=== PATIENT | female | born 1955 | race Caucasian/White ===

== ENCOUNTER → 2018-08-24 09:42 | Outpatient (CLI) | payer MEDICARE, MEDICAID ==
[~2018-08-24 09:42] MED LIST: BAYER CHEWABLE81 MG PO; BETAPACE 120 M120 MG PO; BUMEX2 MG PO; CARDIZEM CD360 MG PO; CELEXA20 MG PO; FERROUS SULFAT325 MG PO; HUMALOG 30100 UNITS/ SC; KLOR-CON M2020 MEQ PO; LIPITOR20 MG PO; METOPROLOL TART50 MG PO; NEURONTIN 300300 MG PO; PLAVIX75 MG PO; SYNTHROID75 MCG PO; TOUJEO SOL300 UNIT/1 SC; ZYLOPRIM300 MG PO
== END | disposition home or self-care (01) ==
LOC: D.RT 09:42
DX: R06.02 Shortness of breath (principal)

== ENCOUNTER → 2018-08-31 08:51 | Outpatient (CLI) | payer MEDICARE, MEDICAID ==
--- NOTE | 2018-09-08 10:39 | ST ---
PATIENT:BERNARD CHOU MEDICAL RECORD: [id number] SEX: F LOCATION:[facility] ORDER #: ADMISSION DATE: 08/31/18 AGE OF PATIENT: 63 REFERRING PHYSICIAN: INTERPRETING PHYSICIAN: BEAN GOULD MD DATE OF SERVICE: 08/31/2018 Nuclear Stress Test INDICATIONS: Angina and coronary artery disease, hypertension, hyperlipidemia. She was exercised on standard Lexiscan protocol with 31 mCi of sestamibi injected at peak stress, 10 mCi used previously for rest images. FINDINGS: Gated SPECT reveals a preserved ejection fraction of 51% with good wall motioning and thickening and brightening throughout all segments. SPECT IMAGING: Cardiolite was used as myocardial perfusion agent. There are reversible changes anteriorly as well as inferiorly. This includes basal, mid, apical anterior segments as well as apical inferior, mid inferior, basal inferior segments. The degree of reversibility is moderate. The amount of myocardium involved is large. OVERALL IMPRESSION: This is an abnormal nuclear stress test. Reversible ischemia anteriorly as well as inferiorly with a preserved ejection fraction suggestive of multivessel coronary artery disease. We will proceed with coronary angiography as followup study. TRANSINT:[id number] Voice Confirmation ID: [id number] DOCUMENT ID: [id number] BEAN GOULD MD at 1039 CC: ERIC HAMEED MD [id number] DICTATION DATE: 09/01/18 1235 FOOD BEVERAGE ATTENDANT: 09/02/18 0453 DEP CLI 08/31/18 [place] [id number] [place] [id number]
== END | disposition home or self-care (01) ==
LOC: D.HCCARDIO 08:51
PROVIDERS: ATTEND Internal Medicine Interventional Cardiology
DX: I25.10 Atherosclerotic heart disease of native coronary artery without angina pectoris (principal)

== ENCOUNTER 2018-10-26 13:41 | Inpatient (IN) | payer MEDICARE, MEDICAID ==
[~2018-10-26] VITALS: Ht 165.1 cm; Wt 128.6 kg
[2018-10-26 14:14] LABS: BASOPHILS 0.3 % (0-2); EOSINOPHILS 0.7 % (0-7); HEMATOCRIT 28.2 % (36.0-48.0); HEMOGLOBIN 9.1 g/dL (12-16); IMMATURE GRANULOCYTES 0.3 % (0-5); LYMPHOCYTES 21.1 % (15-50); MCH 28.4 pg (26.0-34.0); MCHC 32.3 g/dL (31.0-37.0); MCV 88.1 fL (80.0-100.0); MEAN PLATELET VOLUME 10.4 fL (7.4-10.4); MONOCYTES 6.5 % (2-11); NEUTROPHILS 71.1 % (40-80); PLATELET COUNT 252 10x3/uL (130-400); RDW 18.4 % (11.5-14.5); WBC 10.6 10x3/uL (4.8-10.8)
[2018-10-26 14:27] LABS: ALBUMIN 3.1 g/dL (3.4-5.0); ALKALINE PHOSPHATASE 153 U/L (46-116); ALT (SGPT) 14 U/L (10-68); BILIRUBIN - TOTAL 0.94 mg/dL (0.2-1.3); CALC OSMOLALITY 285 mosm/kg (275-300); CALCIUM 8.9 mg/dL (8.5-10.1); CARBON DIOXIDE 27.4 mmol/L (21.0-32.0); CHLORIDE - SERUM 97 mmol/L (98-107); CREATININE - SERUM 1.4 mg/dL (0.6-1.3); POTASSIUM - SERUM 4.7 mmol/L (3.5-5.1); PROTEIN - SERUM 7.5 g/dL (6.4-8.2); SODIUM 135 mmol/L (136-145); UREA NITROGEN 19 mg/dL (7-18); eGFR NON AFRICAN AMERICAN 40 mL/min (90-120)
[2018-10-26 14:42] LABS: GLUCOSE 356 mg/dL (74-106)
[2018-10-26 14:50] LABS: CKMB 0.2 U/L (0.0-3.6); CREATINE KINASE 32 UL (21-215); PRO BNP 953 pg/mL (0-125)
[2018-10-26 14:55] LABS: TROPONIN-I < 0.017 ng/mL (0.000-0.060)
[2018-10-26 16:00] VITALS: BP 114/62
[2018-10-26 17:51] VITALS: BP 111/51
--- NOTE | 2018-10-26 19:16 | MORECARE ---
CASE MANAGEMENT DISCHARGE SUMMARY PATIENT: BERNARD CHOU UNIT: [id number] ADM DATE: 10/26/18 AGE: 63 : 55 SEX: F ROOM/BED: D.2225 AUTHOR: NISH WILHELM PHYSICIAN: REFERRING PHYSICIAN: ERIC HAMEED MD DATE OF SERVICE: 10/26/18 Discharge Plan Patient Name: BERNARD CHOU Facility: [facility]:[place] : 1955 Planned Disposition: Home Anticipated Discharge Date: 10/21/18 Discharge Date: Expected LOS: -5 Initial Reviewer: [email or web address] Initial Review Date: 10/26/2018 Generated: 10/26/18 8:15 pm Patient Name: BERNARD CHOU Page 52713 at 1916 All edits/amendments must be made on the electronic document DICTATION DATE: 10/26/181914 ANTHROPOLOGY AND ARCHEOLOGY INSTRUCTOR: MAIRA 10/26/181914 RPT#: [id number] DC DATE: STATUS: ADM IN [facility] [address] [place] [address] END OF REPORT
--- NOTE | 2018-10-26 19:24 | MORECARE ---
CASE MANAGEMENT DISCHARGE SUMMARY PATIENT: BERNARD CHOU UNIT: [id number] ADM DATE: 10/26/18 AGE: 63 : 55 SEX: F ROOM/BED: D.2225 AUTHOR: NISH WILHELM PHYSICIAN: REFERRING PHYSICIAN: ERIC HAMEED MD DATE OF SERVICE: 10/26/18 Discharge Plan Patient Name: BERNARD CHOU Facility: [facility]:[place] : 1955 Planned Disposition: Home Anticipated Discharge Date: 10/21/18 Discharge Date: Expected LOS: -5 Initial Reviewer: [email or web address] Initial Review Date: 10/26/2018 Generated: 10/26/18 8:23 pm DCPIA - Discharge Planning Initial Assessment Updated by [email or web address]: Sharon Stout on 10/26/18 7:17 pm * Is the patient Alert and Oriented? Yes * How many steps to enter\exit or inside your home? * PCP Dr. Hameed * Pharmacy [facility] [address] [facility] * Preadmission Environment Home with Family * ADLs Independent * Equipment Cane Rolling Walker * Other Equipment Should have a bipap but [facility] has not delivered it. Has been waiting since August... * List name and contact numbers for known caregivers / representatives who currently or will assist patient after discharge: Kodi Chou - brother - [phone] * Verbal permission to speak to the caregivers and representatives has been obtained from the patient. Yes * Community resources currently utilized None * Additional services required to return to the preadmission environment? Yes * Can the patient safely return to the preadmission environment? Yes * Has this patient been hospitalized within the prior 30 days at any hospital? No Last DP export: 10/26/18 6:16 p Patient Name: BERNARD CHOU Page 10342 at 1924 All edits/amendments must be made on the electronic document DICTATION DATE: 10/26/181922 ROLLING MACHINE OPERATOR AUTOMATIC: MAIRA 10/26/181922 RPT#: [id number] DC DATE: STATUS: ADM IN [facility] [address] [place] [address] END OF REPORT
--- NOTE | 2018-10-26 19:31 | MORECARE ---
CASE MANAGEMENT DISCHARGE SUMMARY PATIENT: BERNARD CHOU UNIT: [id number] ADM DATE: 10/26/18 AGE: 63 : 55 SEX: F ROOM/BED: D.2225 AUTHOR: NISH WILHELM PHYSICIAN: REFERRING PHYSICIAN: ERIC HAMEED MD DATE OF SERVICE: 10/26/18 Discharge Plan Patient Name: BERNARD CHOU Facility: [facility]:[place] : 1955 Planned Disposition: Home Anticipated Discharge Date: 10/21/18 Discharge Date: Expected LOS: -5 Initial Reviewer: [email or web address] Initial Review Date: 10/26/2018 Generated: 10/26/18 8:30 pm DCP- Discharge Planning Updated by [email or web address]: Sharon Stout on 10/26/18 6:[address] Patient Name: BERNARD CHOU Admission Status: ER Accout number: [id number] Admission Date: 10-26-2018 : 1955 Admission Diagnosis: Attending: ERIC HAMEED Current LOS: 1 Anticipated DC Date: 10-21-2018 Planned Disposition: Home Primary Insurance: [facility] MEDICARE SOLUTIONS Discharge Planning Comments: CM met with patient and her ex to complete initial dc planning assessment. CM educated patient on the CM role and verbal consent given by patient to complete assessment. CM verified patient's address, phone number, and emergency contact phone numbers. Patient lives at her brothers home who is a truck sales representative. The patient reports she is independent in her care at home. She reports she is to have a bipap through [facility] but they have not delivered it at this time. She reports she has been waiting since August for this bipap. At discharge patient plans to return to her brothers home and feels this is a safe discharge. CM discussed availability of home health, rehab services, and medical equipment. Patient denied known discharge needs at this time. Patient reports her ex brother will transport her home at time of discharge. CM will continue to follow and will assist as needed with dc plans/needs. Affiliate Marketing Manager: Sharon Stout RN, [facility] DCPIA - Discharge Planning Initial Assessment Updated by [email or web address]: Sharon Stout on 10/26/18 7:17 pm * Is the patient Alert and Oriented? Yes * How many steps to enter\exit or inside your home? * PCP Dr. Hameed * [facility]acy [facility] [address] * Preadmission Environment Home with Family * ADLs Independent * Equipment Cane Rolling Walker * Other Equipment Should have a bipap but [facility] has not delivered it. Has been waiting since August... * List name and contact numbers for known caregivers / representatives who currently or will assist patient after discharge: Kodi Chou - brother - [phone] * Verbal permission to speak to the caregivers and representatives has been obtained from the patient. Yes * Community resources currently utilized None * Additional services required to return to the preadmission environment? Yes * Can the patient safely return to the preadmission environment? Yes * Has this patient been hospitalized within the prior 30 days at any hospital? No Last DP export: 10/26/18 6:23 p Patient Name: BERNARD CHOU Page 85796 at 1931 All edits/amendments must be made on the electronic document DICTATION DATE: 10/26/181929 PYROTECHNIST: MAIRA 10/26/181929 RPT#: [id number] DC DATE: STATUS: ADM IN [facility] [address] [place] [address] END OF REPORT
--- NOTE | 2018-10-26 21:15 | NUR ---
PT SITTING UP IN BED WITHOUT DISTRESS. ALERT AND ORIENTED, DENIES NEEDS. CL IN REACH, WILL CTM
[2018-10-26 21:18] LABS: % SATURATION 18 % (15-55); IRON 46 ug/dl (35-150); TOTAL IRON BIND CAPACITY 245 ug/dl (260-445); UNSAT IRON BIND CAPACITY 199 ug/dl (150-375)
[2018-10-27] VITALS: BP 126/65
[2018-10-27 02:00] VITALS: Ht 165.1 cm; Wt 128.6 kg
--- NOTE | 2018-10-27 02:07 | NUR ---
DR. GOLD NOTIFIED AND REVIEWED PT'S BEHAVIOR AND ASSESSMENT RESULTS. PT IS LOW RISK PER DR. GOLD. DR. GOLD STATED TO GIVE RESOURCES TO PT AT TIME OF DISCHARGE. NO FURTHER ORDERS AT THIS TIME. RESOURCES REVIEWED WITH PT AND SHE VERBALIZED UNDERSTANDING.
[2018-10-27 04:00] VITALS: BP 125/69
[2018-10-27 04:41] LABS: BASOPHILS 0.2 % (0-2); EOSINOPHILS 0 % (0-7); HEMATOCRIT 26.6 % (36.0-48.0); HEMOGLOBIN 8.4 g/dL (12-16); IMMATURE GRANULOCYTES 0.3 % (0-5); LYMPHOCYTES 10.1 % (15-50); MCH 27.9 pg (26.0-34.0); MCHC 31.6 g/dL (31.0-37.0); MCV 88.4 fL (80.0-100.0); MEAN PLATELET VOLUME 10.2 fL (7.4-10.4); MONOCYTES 0.8 % (2-11); NEUTROPHILS 88.6 % (40-80); RBC 3.01 10x6/uL (4.00-5.40); RDW 18.3 % (11.5-14.5)
[2018-10-27 04:56] LABS: PLATELET COUNT 201 10x3/uL (130-400); WBC 6.5 10x3/uL (4.8-10.8)
[2018-10-27 05:14] LABS: ALBUMIN 2.9 g/dL (3.4-5.0); ANION GAP 14.5 mmol/L (8-16); BILIRUBIN - TOTAL 0.74 mg/dL (0.2-1.3); CALCIUM 8.9 mg/dL (8.5-10.1); CARBON DIOXIDE 29.2 mmol/L (21.0-32.0); CREATININE - SERUM 1.4 mg/dL (0.6-1.3); POTASSIUM - SERUM 4.7 mmol/L (3.5-5.1); PROTEIN - SERUM 7.1 g/dL (6.4-8.2)
--- NOTE | 2018-10-27 08:00 | NUR ---
PATIENT IN BED WITH IV INTACT. NO COMPLAINTS OR SIGNS OF DISTRESS. CALL LIGHT WITHIN REACH.
[2018-10-27 09:12] VITALS: BP 119/60
--- NOTE | 2018-10-27 11:19 | CN ---
PATIENT NAME:BERNARD CHOU MEDICAL RECORD: [id number] : 55 LOCATION:D.MS [id number] ADMIT DATE: 10/26/18 ACCOUNT: [id number] CONSULTING PHYSICIAN: BEAN GOULD MD REFERRING PHYSICIAN: ERIC HAMEED MD DATE OF CONSULTATION: 10/26/2018 DIAGNOSES: 1. Shortness of breath - dyspnea on exertion. 2. Coronary artery disease. 3. Previous percutaneous transluminal coronary angioplasty stent. 4. Anemia. 5. Hyperglycemia. 6. Insulin-dependent diabetes. 7. Paroxysmal atrial fibrillation. 8. Hypertension. 9. Hyperlipidemia. HISTORY OF PRESENT ILLNESS: Mrs. Chou presents with shortness of breath, dyspnea on exertion. No chest pain. No chest discomfort compatible with angina. She recently underwent PTCA stent of an LAD. This was the only significant disease she had. She has felt much better and that she has not had any chest pain or chest discomfort since that procedure. She only has shortness of breath and dyspnea on exertion. She, however, has worsening anemia with hemoglobin of 9.1 and she has worsening hyperglycemia with a blood sugar greater than 400. Her EKG is with no changes. Her troponin is normal. PHYSICAL EXAMINATION: GENERAL APPEARANCE: Well-nourished, well-developed, appears stated age. Level of distress, comfortable. PSYCHIATRIC: Mental status, alert, normal affect. Orientation, oriented to time, place and person. EYES: Lids and conjunctiva, noninjected. No discharge, no pallor. ENT: Lips, teeth, gums, normal dentition. Oropharynx, no cyanosis, no pallor. NECK: Carotid arteries, bilateral normal upstroke, no bruits, no thrills. JUGULAR VEINS: No jugular venous pressure or distention. CERVICAL LYMPH NODES: Nontender, nonenlarged. THYROID: Not enlarged. Nontender. No nodules. LUNGS: Respiratory effort, unlabored. CHEST: Normal curvature. No thoracic deformity. No chest wall tenderness. Percussion, resonant. Auscultation, clear. No wheezes, no rales, no rhonchi. CARDIOVASCULAR: Precordial exam, nondisplaced. No heaves or pericardial thrills. Rate and rhythm, regular. Heart sounds, normal S1, normal S2. No S3, no gallop, no rub. Systolic murmur, not heard. Diastolic murmur, not heard. EXTREMITIES: No cyanosis, no edema. Peripheral pulses, full and equal in all extremities, except as noted. No bruits appreciated. ABDOMEN: Soft, nondistended. Normal aorta. No bruit. Nontender. No masses. Liver, nontender, no hepatomegaly. Spleen, nontender, no splenomegaly. MUSCULOSKELETAL: No joint tenderness. No joint swelling. No erythema. NEUROLOGICAL: Normal gait, normal strength, normal tone. SKIN: Warm and dry. OVERALL IMPRESSION: Shortness of breath, dyspnea on exertion. She has multiple reasons to have this. I think the most pressing issues she has now are the anemia and the hyperglycemia. From a cardiac standpoint, she had a normal CONSULT REPORT [id number] BERNARD CHOU ejection fraction, no other blockages and her heart remains in sinus rhythm on her sotalol. We will get an echocardiogram, but no other cardiac workup or treatment is necessary, I think this is metabolic in nature. TRANSINT:[id number] Voice Confirmation ID: [id number] DOCUMENT ID: [id number] BEAN GOULD MD at 1119 CC: [id number] DICTATION DATE: 10/26/18 1538 RESEARCH AND DEVELOPMENT ENGINEER: 10/26/18 1656 ADM IN [place] [id number] [place] [address]
[2018-10-27 12:09] VITALS: BP 125/60
[2018-10-27 16:24] VITALS: BP 127/75
--- NOTE | 2018-10-27 16:30 | NUR ---
NOTIFIED DR. HAMEED OF PATIENTS BS BEING HIGH ALL DAY AND NOW HIGHER. NEW ORDERS RECIEVED TO CHANGE SOLUMEDROL TO 60 MG. PATIENT IN BED WITH IV INTACT. CALL LIGHT WITHIN REACH.
--- NOTE | 2018-10-27 18:45 | NUR ---
PATIENT IN BED WITH IV INTACT. NO COMPLAINTS OR SIGNS OF DISTRESS. CALL LIGHT WITHIN REACH.
--- NOTE | 2018-10-27 20:11 | NUR ---
REC'D. IN BED TALKING ON PHONE DENIES ANY DISCOMFORT OR COMLAINTS AT PRESENT TIME.WILL CONTINUE TO MONITOR FOR ANY CHGES AND FOLLOW CURRENT PLAN OF CARE.
[2018-10-27 20:56] VITALS: BP 117/46
[2018-10-28 00:47] VITALS: BP 121/49
--- NOTE | 2018-10-28 01:57 | NUR ---
I have reviewed this patient and I concur with the Shift Assessment completed by the Licensed Practical Nurse today this shift.
--- NOTE | 2018-10-28 01:59 | NUR ---
I have reviewed this patient and I concur with the Shift Assessment completed by the Licensed Practical Nurse today this shift.
[2018-10-28 05:23] VITALS: BP 114/62
[2018-10-28 06:37] LABS: BASOPHILS 0 % (0-2); EOSINOPHILS 0 % (0-7); HEMATOCRIT 25.5 % (36.0-48.0); HEMOGLOBIN 8.3 g/dL (12-16); IMMATURE GRANULOCYTES 0.2 % (0-5); LYMPHOCYTES 6.2 % (15-50); MCH 28.2 pg (26.0-34.0); MCHC 32.5 g/dL (31.0-37.0); MCV 86.7 fL (80.0-100.0); MEAN PLATELET VOLUME 10.5 fL (7.4-10.4); MONOCYTES 2.7 % (2-11); NEUTROPHILS 90.9 % (40-80); PLATELET COUNT 236 10x3/uL (130-400); RBC 2.94 10x6/uL (4.00-5.40); RDW 18.2 % (11.5-14.5)
[2018-10-28 06:54] LABS: WBC 11.7 10x3/uL (4.8-10.8)
[2018-10-28 07:02] LABS: ANION GAP 11.2 mmol/L (8-16); CALCIUM 9.3 mg/dL (8.5-10.1); CARBON DIOXIDE 31.7 mmol/L (21.0-32.0); CREATININE - SERUM 1.3 mg/dL (0.6-1.3); POTASSIUM - SERUM 4.9 mmol/L (3.5-5.1)
--- NOTE | 2018-10-28 08:02 | HP ---
PATIENT: BERNARD CHOU MEDICAL RECORD: [id number] ACCOUNT: [id number] LOCATION:D.MS Rapp2225 : 55 ADMISSION DATE: 10/26/18 PCP: ERIC HAMEED MD HISTORY AND PHYSICAL EXAMINATION DATE OF ADMISSION: 10/26/2018 CHIEF COMPLAINT: Shortness of breath. HISTORY OF PRESENT ILLNESS: A 63-year-old female who states she has had shortness of breath for weeks. She wonders if it is not a reaction to gabapentin. She has a history of peripheral neuropathy and Dr. Waldron increased her gabapentin from 100 three times a day to 300 mg twice a day. She denies fever, chills, nausea, vomiting. She states in the ER, her O2 sat was 88% on room air. The patient states she just saw Dr. Salinas in his office a week or so ago. He told her she does not have COPD that she thought she had. She states that she was told her lungs were "too small for her body." She has just recently had a coronary stent as well. PAST MEDICAL HISTORY: 1. Diabetes, followed by the aviation maintenance technician here in town: 2. Obesity. 3. Sleep apnea. 4. Hypertension. 5. Chronic anemia "everybody in my family is anemic". 6. Hyperlipidemia 7. Depression 8. Hypothyroidism 9. Coronary artery disease 10. Cataracts. PAST SURGICAL HISTORY: Bilateral cataract surgery. She had a stent to her LAD by Dr. Chanel "recently". ALLERGIES: REPORTED TO DEXAMETHASONE AND ADHESIVE TAPE. HOME MEDICATIONS: Include gabapentin 300 mg twice a day, Lipitor 10 mg once a day, Plavix 75 mg once a day, Bumex 2 mg 1-1/2 pills once a day, Humalog via sliding scale, Toujeo 26 units twice a day, metoprolol 50 mg twice a day, ProAir HFA 2 puffs q.6 hours p.r.n., diltiazem ER 360 once a day, sotalol 120 mg twice a day, levothyroxine 75 mcg once a day, duloxetine 60 mg once a day, allopurinol 300 mg 1/2 once a day, potassium 20 mEq once a day, aspirin once a day, and iron twice a day. HABITS: She has never smoked. No alcohol or drugs. SOCIAL HISTORY: She is . She is on disability. FAMILY HISTORY: Father of an aneurysm, he had colon cancer, he had coronary artery disease. Mother is alive with diabetes and hypertension. REVIEW OF SYSTEMS: GENERAL: No major weight changes. HEENT: No particular sinus or allergy problems. RESPIRATORY: She just saw Dr. Salinas in his office. I am not sure what HISTORY AND PHYSICAL [id number] BERNARD CHOU diagnosis she actually has, but she has been told now that she does not have COPD, she thought she had. CARDIAC: She has coronary artery disease followed by Dr. Chanel, and has a stent to her LAD. GASTROINTESTINAL: She has heartburn at times. GENITOURINARY: No significant problems there. MUSCULOSKELETAL: No significant joint aches and pains. NEUROLOGIC: No seizures or migraines. PSYCHIATRIC: She has depression. PHYSICAL EXAMINATION: VITAL SIGNS: Temperature 98.0, pulse 69, respirations 18, blood pressure 111/51, O2 sat currently 98% on 2 liters. GENERAL: She is awake and alert. She is in no acute distress. She is obese. HEENT: Grossly within normal limits. NECK: Supple. HEART: Regular rate and rhythm. LUNGS: Clear. No wheezes or rales. ABDOMEN: Obese, soft, nontender. EXTREMITIES: With 1+ edema. LABORATORY DATA: CBC with a white count of 10,600, hemoglobin 9.1, hematocrit 28.2. Basic metabolic panel is all okay except her glucose is 356. D-dimer elevated at 1.54. Liver functions are all normal. ProBNP 953. Troponin less than 0.017. DIAGNOSTIC DATA: Chest x-ray showed small right pleural effusion with adjacent atelectasis or infiltrate. CT angiogram of the chest, PE protocol showed mild bibasilar atelectasis or infiltrate, no PE. ASSESSMENT: 1. Shortness of breath. 2. Dyspnea on exertion. PLAN: Cardiology has been consulted. Dr. Chanel says he does not feel this is cardiac in nature. We will consult pulmonology. She is started on antibiotics for possible pneumonia based on CT and the chest x-ray. We will further evaluate her anemia. Other tests or procedures as warranted. Monitor her diabetes. TRANSINT:[id number] Voice Confirmation ID: [id number] DOCUMENT ID: [id number] ERIC HAMEED MD at 0802 CC: [id number] DICTATION DATE: 10/27/1803 NAILING MACHINE FEEDER: 10/27/18 0949 ADM IN [facility] [address] [place] [id number]
[2018-10-28 08:55] VITALS: BP 129/58
--- NOTE | 2018-10-28 09:00 | NUR ---
EXPLAINED TO PATIENT NPO AT THIS TIME FOR EGD. VERBALIZED UNDERSTANDING.
--- NOTE | 2018-10-28 11:32 | MORECARE ---
CASE MANAGEMENT DISCHARGE SUMMARY PATIENT: BERNARD CHOU UNIT: [id number] ADM DATE: 10/26/18 AGE: 63 : 55 SEX: F ROOM/BED: D.2225 AUTHOR: NISH WILHELM PHYSICIAN: REFERRING PHYSICIAN: ERIC HAMEED MD DATE OF SERVICE: 10/28/18 Discharge Plan Patient Name: BERNARD CHOU Facility: [facility]:[place] : 1955 Planned Disposition: Home Anticipated Discharge Date: 10/21/18 Discharge Date: Expected LOS: -5 Initial Reviewer: [email or web address] Initial Review Date: 10/26/2018 Generated: 10/28/18 12:31 pm DCP- Discharge Planning Updated by [email or web address]: Sharon Stout on 10/26/18 6:[address] Patient Name: BERNARD CHOU Admission Status: ER Accout number: [id number] Admission Date: 10-26-2018 : 1955 Admission Diagnosis: Attending: ERIC HAMEED Current LOS: 1 Anticipated DC Date: 10-21-2018 Planned Disposition: Home Primary Insurance: [facility] MEDICARE SOLUTIONS Discharge Planning Comments: CM met with patient and her ex to complete initial dc planning assessment. CM educated patient on the CM role and verbal consent given by patient to complete assessment. CM verified patient's address, phone number, and emergency contact phone numbers. Patient lives at her brothers home who is a supervisor ordnance truck installation. The patient reports she is independent in her care at home. She reports she is to have a bipap through [facility] but they have not delivered it at this time. She reports she has been waiting since August for this bipap. At discharge patient plans to return to her brothers home and feels this is a safe discharge. CM discussed availability of home health, rehab services, and medical equipment. Patient denied known discharge needs at this time. Patient reports her ex brother will transport her home at time of discharge. CM will continue to follow and will assist as needed with dc plans/needs. Automobile Mechanic Assistant: Sharon Stout RN, [facility] DCPIA - Discharge Planning Initial Assessment Updated by [email or web address]: Sharon Stout on 10/26/18 7:17 pm * Is the patient Alert and Oriented? Yes * How many steps to enter\exit or inside your home? * PCP Dr. Hameed * Pharmacy [facility] [address] * Preadmission Environment Home with Family * ADLs Independent * Equipment Cane Rolling Walker * Other Equipment Should have a bipap but [facility] has not delivered it. Has been waiting since August... * List name and contact numbers for known caregivers / representatives who currently or will assist patient after discharge: Kodi Chou - brother - [phone] * Verbal permission to speak to the caregivers and representatives has been obtained from the patient. Yes * Community resources currently utilized None * Additional services required to return to the preadmission environment? Yes * Can the patient safely return to the preadmission environment? Yes * Has this patient been hospitalized within the prior 30 days at any hospital? No External Providers External Provider: [facility] Next Contact Date: Service Request Date: Service Type: Resolution: Reviewer: Comments: Coverage Notice Reviewer: [email or web address] Joe Estrella Notice Issued Date-Time: 10/28/2018 11:22 Notice Type: Patient Choice Letter Notice Delivered To: Patient Relationship to Patient: Self Clerk Telegraph Service Name: Delivery Method: HAND - Hand Delivered Yael Days: Prior Verbal Notification: Recipient Understood Notice: Recipient Signature: Yes Med Rec Note Co-signed by Attending: Coverage Notice Comment: LESLY for [facility] Last DP export: 10/26/18 6:30 p Patient Name: BERNARD CHOU Page 36466 at 1132 All edits/amendments must be made on the electronic document DICTATION DATE: 10/28/18 1131 SUGAR CANE PLANTING EQUIPMENT OPERATOR: MAIRA 10/28/18 1131 RPT#: [id number] DC DATE: STATUS: ADM IN [facility] [address] [place] [address] END OF REPORT
--- NOTE | 2018-10-28 12:02 | MORECARE ---
CASE MANAGEMENT DISCHARGE SUMMARY PATIENT: BERNARD CHOU UNIT: [id number] ADM DATE: 10/26/18 AGE: 63 : 55 SEX: F ROOM/BED: D.2225 AUTHOR: NISH WILHELM PHYSICIAN: REFERRING PHYSICIAN: ERIC HAMEED MD DATE OF SERVICE: 10/28/18 Discharge Plan Patient Name: BERNARD CHOU Facility: [facility]:[place] : 1955 Planned Disposition: Home Anticipated Discharge Date: 10/21/18 Discharge Date: Expected LOS: -5 Initial Reviewer: [email or web address] Initial Review Date: 10/26/2018 Generated: 10/28/18 1:02 pm Comments DCP- Discharge Planning Updated by [email or web address]: Diana Estrella on 10/28/18 10:[address] Salinas states [facility] has been working on getting patient a BIPAP and would like me to call them and have them deliver it here. I also did a walk test and she qualifies for home oxygen. I called [facility] and spoke with Mynor. Brigette states that they have no record of this patient. I called Dr. Salinas's office and spoke with Vianney (his nurse). She states they have sent records and order to [facility] for BIPAP. I asked Vianney to fax the sleep study and the chart notes to me and [facility] to get this taken care of. CM will continue to follow and assist with discharge planning/needs. DCP- Discharge Planning Updated by [email or web address]: Sharon Stout on 10/26/18 6:[address] Patient Name: BERNARD CHOU Admission Status: ER Accout number: [id number] Admission Date: 10-26-2018 : 1955 Admission Diagnosis: Attending: ERIC HAMEED Current LOS: 1 Anticipated DC Date: 10-21-2018 Planned Disposition: Home Primary Insurance: [facility] MEDICARE SOLUTIONS Discharge Planning Comments: CM met with patient and her ex to complete initial dc planning assessment. CM educated patient on the CM role and verbal consent given by patient to complete assessment. CM verified patient's address, phone number, and emergency contact phone numbers. Patient lives at her brothers home who is a boom truck driver. The patient reports she is independent in her care at home. She reports she is to have a bipap through [facility] but they have not delivered it at this time. She reports she has been waiting since August for this bipap. At discharge patient plans to return to her brothers home and feels this is a safe discharge. CM discussed availability of home health, rehab services, and medical equipment. Patient denied known discharge needs at this time. Patient reports her ex brother will transport her home at time of discharge. CM will continue to follow and will assist as needed with dc plans/needs. Family Consumer Science Fcs Teacher: Sharon Stout RN, [facility] DCPIA - Discharge Planning Initial Assessment Updated by [email or web address]: Sharon Stout on 10/26/18 7:17 pm * Is the patient Alert and Oriented? Yes * How many steps to enter\exit or inside your home? * PCP Dr. Hameed * Pharmacy [facility] [address] * Preadmission Environment Home with Family * ADLs Independent * Equipment Cane Rolling Walker * Other Equipment Should have a bipap but [facility] has not delivered it. Has been waiting since August... * List name and contact numbers for known caregivers / representatives who currently or will assist patient after discharge: Kodi Chou - brother - [phone] * Verbal permission to speak to the caregivers and representatives has been obtained from the patient. Yes * Community resources currently utilized None * Additional services required to return to the preadmission environment? Yes * Can the patient safely return to the preadmission environment? Yes * Has this patient been hospitalized within the prior 30 days at any hospital? No Coverage Notice Reviewer: [email or web address] Joe Estrella Notice Issued Date-Time: 10/28/2018 11:22 Notice Type: Patient Choice Letter Notice Delivered To: Patient Relationship to Patient: Self Lna Name: Delivery Method: HAND - Hand Delivered Yael Days: Prior Verbal Notification: Recipient Understood Notice: Recipient Signature: Yes Med Rec Note Co-signed by Attending: Coverage Notice Comment: LESLY for [facility] Last DP export: 10/28/18 10:31 a Patient Name: BERNARD CHOU Page [phone] at 1202 All edits/amendments must be made on the electronic document DICTATION DATE: 10/28/181201 GOLF SALES ASSOCIATE: MAIRA 10/28/181201 RPT#: [id number] DC DATE: STATUS: ADM IN [facility] [address] [place] [address] END OF REPORT
[2018-10-28 12:24] VITALS: BP 142/58
--- NOTE | 2018-10-28 14:17 | MORECARE ---
CASE MANAGEMENT DISCHARGE SUMMARY PATIENT: BERNARD CHOU UNIT: [id number] ADM DATE: 10/26/18 AGE: 63 : 55 SEX: F ROOM/BED: D.2225 AUTHOR: NISH WILHELM PHYSICIAN: REFERRING PHYSICIAN: ERIC HAMEED MD DATE OF SERVICE: 10/28/18 Discharge Plan Patient Name: BERNARD CHOU Facility: [facility]:[place] : 1955 Planned Disposition: Home Anticipated Discharge Date: 10/21/18 Discharge Date: Expected LOS: -5 Initial Reviewer: [email or web address] Initial Review Date: 10/26/2018 Generated: 10/28/18 3:17 pm Comments DCP- Discharge Planning Updated by [email or web address]: Diana Estrella on 10/28/18 1:[address] Sleep study and notes faxed to [facility]. Dakotah called and states he will bring patient her BIPAP today to the hospital. CM will continue to follow and assist with discharge planning/needs. DCP- Discharge Planning Updated by [email or web address]: Diana Estrella on 10/28/18 10:[address] Salinas states [facility] has been working on getting patient a BIPAP and would like me to call them and have them deliver it here. I also did a walk test and she qualifies for home oxygen. I called [facility] and spoke with Dakotah and Brigette. Brigette states that they have no record of this patient. I called Dr. Salinas's office and spoke with Vianney (his nurse). She states they have sent records and order to [facility] for BIPAP. I asked Vianney to fax the sleep study and the chart notes to me and [facility] to get this taken care of. CM will continue to follow and assist with discharge planning/needs. DCP- Discharge Planning Updated by [email or web address]: Sharon Stout on 10/26/18 6:[address] Patient Name: BERNARD CHOU Admission Status: ER Accout number: [id number] Admission Date: 10-26-2018 : 1955 Admission Diagnosis: Attending: ERIC HAMEED Current LOS: 1 Anticipated DC Date: 10-21-2018 Planned Disposition: Home Primary Insurance: [facility] MEDICARE SOLUTIONS Discharge Planning Comments: CM met with patient and her ex to complete initial dc planning assessment. CM educated patient on the CM role and verbal consent given by patient to complete assessment. CM verified patient's address, phone number, and emergency contact phone numbers. Patient lives at her brothers home who is a truck shop mechanic. The patient reports she is independent in her care at home. She reports she is to have a bipap through [facility] but they have not delivered it at this time. She reports she has been waiting since August for this bipap. At discharge patient plans to return to her brothers home and feels this is a safe discharge. CM discussed availability of home health, rehab services, and medical equipment. Patient denied known discharge needs at this time. Patient reports her ex brother will transport her home at time of discharge. CM will continue to follow and will assist as needed with dc plans/needs. Record Label Internship: Sharon Stout RN, [facility] DCPIA - Discharge Planning Initial Assessment Updated by [id number]: Sharon Stout on 10/26/18 7:17 pm * Is the patient Alert and Oriented? Yes * How many steps to enter\exit or inside your home? * PCP Dr. Hameed * Pharmacy [facility] [address] * Preadmission Environment Home with Family * ADLs Independent * Equipment Cane Rolling Walker * Other Equipment Should have a bipap but [facility] has not delivered it. Has been waiting since August... * List name and contact numbers for known caregivers / representatives who currently or will assist patient after discharge: Kodi Chou - [phone] * Verbal permission to speak to the caregivers and representatives has been obtained from the patient. Yes * Community resources currently utilized None * Additional services required to return to the preadmission environment? Yes * Can the patient safely return to the preadmission environment? Yes * Has this patient been hospitalized within the prior 30 days at any hospital? No Coverage Notice Reviewer: [email or web address] - Diana Estrella Notice Issued Date-Time: 10/28/2018 11:22 Notice Type: Patient Choice Letter Notice Delivered To: Patient Relationship to Patient: Self Television News Reporter Name: Delivery Method: HAND - Hand Delivered Yael Days: Prior Verbal Notification: Recipient Understood Notice: Recipient Signature: Yes Med Rec Note Co-signed by Attending: Coverage Notice Comment: LESLY for [facility] Last DP export: 10/28/18 11:02 a Patient Name: BERNARD CHOU Page [phone] at 1417 All edits/amendments must be made on the electronic document DICTATION DATE: 10/28/181416 SURVEILLANCE SENSOR OPERATOR: MAIRA 10/28/181416 RPT#: [id number] DC DATE: STATUS: ADM IN [facility] [address] [place] [address] END OF REPORT
--- NOTE | 2018-10-28 16:47 | NUR ---
PATIENT BACK TO ROOM FROM GI LAB. IV INTACT. VS STABLE. CALL LIGHT WITHIN REACH.
--- NOTE | 2018-10-28 18:45 | NUR ---
PATIENT IN BED WITH IV INTACT. NO COMPLAINTS OR SIGNS OF DISTRESS. CALL LIGHTW ITHINR EACH.
[2018-10-28 20:00] VITALS: BP 124/61
[2018-10-29] VITALS: BP 132/61
[2018-10-29 03:08] LABS: FOLATE (FOLIC ACID) - SERUM 12.1 ng/mL (>3.0)
[2018-10-29 04:00] VITALS: BP 123/63
[2018-10-29 06:08] LABS: BASOPHILS 0 % (0-2); EOSINOPHILS 0 % (0-7); HEMATOCRIT 25.5 % (36.0-48.0); HEMOGLOBIN 8.1 g/dL (12-16); IMMATURE GRANULOCYTES 0.2 % (0-5); LYMPHOCYTES 7.7 % (15-50); MCH 27.9 pg (26.0-34.0); MCHC 31.8 g/dL (31.0-37.0); MCV 87.9 fL (80.0-100.0); MEAN PLATELET VOLUME 10.3 fL (7.4-10.4); MONOCYTES 9.8 % (2-11); NEUTROPHILS 82.3 % (40-80); PLATELET COUNT 211 10x3/uL (130-400); RDW 18.4 % (11.5-14.5); WBC 9.8 10x3/uL (4.8-10.8)
[2018-10-29 06:36] LABS: ANION GAP 8.4 mmol/L (8-16); CALCIUM 9.3 mg/dL (8.5-10.1); CARBON DIOXIDE 34.2 mmol/L (21.0-32.0); CREATININE - SERUM 1.4 mg/dL (0.6-1.3); POTASSIUM - SERUM 4.6 mmol/L (3.5-5.1)
--- NOTE | 2018-10-29 07:15 | NUR ---
ASSESSED AT THE BEGINNING OF THE SHIFT. PT IS ALERT AND ORIENTED, ABLE TO VERBALIZE NEEDS. SHE WAS USING O2 UNTIL BEDTIME AND THEN SHE WAS PUT N HER HOME BIPAP. AT HS HER BLOOD SUGAR WAS 592 AND THE MD WAS CALLED AND NEED SLIDING SCALE ORDERS WERE TAKEN. HER TELEMETRY WAS ON AND SHE WAS SR AT 78 WITH BBB. THIS MORNING SHE WAS UP EARLY AND STATED SHE HAD RESTED BETTER THAN PRIOR NIGHTS AND FELT BETTER. HER BLOOD SUGAR THIS MORNING WAS ONLY 288 AND IT WAS COVERED. NO PROBLEMS WERE NOTED DURING THE NIGHT.
[2018-10-29 08:00] VITALS: BP 121/65
--- NOTE | 2018-10-29 10:00 | NUR ---
PT IS WITHOUT DISTRESS.MONITOR FOR NEEDS
--- NOTE | 2018-10-29 12:19 | NUR ---
PT RESTING IN BED. NO SIGNS OF DISTRESS. IV TO RIGHT HAND PATENT NO REDNESS OR TENDERNESS. ON 3L NC. ON TELEMETRY SR. DENIES ANY FUTHER NEED AT THIS TIME. CALL LIGHT IN REACH. BED LOW POSITION. FAMILY AT BEDSIDE.
[2018-10-29 13:07] VITALS: BP 137/56
--- NOTE | 2018-10-29 13:25 | EC ---
PATIENT:BERNARD CHOU DATE OF SERVICE: 10/26/18 SEX: F MEDICAL RECORD: [id number] DATE OF : [birth year] LOCATION:D.MS [id number] AGE OF PATIENT: 63 ADMISSION DATE: 10/26/18 REFERRING PHYSICIAN: INTERPRETING PHYSICIAN: BEAN CHANEL MD ECHOCARDIOGRAM REPORT ECHO CHARGES 4 ECHO COMPLETE Date: 10/27/18 CLINICAL DIAGNOSIS: SOB ECHOCARDIOGRAPHIC MEASUREMENTS (adult normal given) AC root (d.<3.7cm) 2.4 cm LV Septum d (<1.2 cm> 1.1 cm Valve Excursion 1.7 cm LV Septum (systole) 1.5 cm Left Atria (s.<4.0cm> 4.1 cm LVPW d(<1.2cm) 1.2 cm RV (d.<2.3cm) 3.0 cm LVPW (sytole) 1.7 cm LV diastole(<5.6CM) 6.5 cm MV E-F(>70mm/sec) cm LV systole 4.8 cm LVOT Diameter 1.7 cm MV exc.(>10mm) cm Est.ejection fraction (50-75%) % DOPPLER: LVIT cm/sec A 212 cm/sec E 268 cm/sec LA cm/sec RVSP 68.0 mmHg LVOT 130 cm/sec AOP1/2T m/s Asc. Ao 203 cm/sec RVOT 102 cm/sec RA cm/sec PA 141 cm/sec AV Gradient Peak 17.0 mmHg AV Mean 8.8 mmHg AV Area 1.4 cm MV Gradient Peak 37.0 mmHg MV Mean 18.0 mmHg MV Area cm COMMENTS: Machine Adjuster Leader Case Trim: 1 ZO HAPPY CAMP Lead Radiation Therapist: 1 Dr. Chanel TAPE# PACS Pericardial Effusion N DATE OF SERVICE: ECHOCARDIOGRAM FINDINGS: 1. Left ventricular chamber size is dilated. Left ventricular systolic function is moderately reduced, ejection fraction in the 35% range. 2. Left atrium is enlarged at 4.1 cm. Right atrium and right ventricular chamber sizes are as well mildly dilated. 3. Valvular structures have normal structure and motion. ECHOCARDIOGRAM REPORT [id number] BERNARD CHOU 4. Doppler interrogation reveals severe mitral regurgitation, moderate tricuspid regurgitation, no other valvular insufficiency or stenosis. Pulmonary systolic pressure is elevated estimated 68 mmHg. 5. No evidence of pericardial effusion or left ventricular thrombus. TRANSINT:[id number] Voice Confirmation ID: [id number] DOCUMENT ID: [id number] BEAN CHANEL MD at 1325 CC: ERIC HAMEED MD [id number] DICTATION DATE: 10/27/18 1705 MANAGEMENT CONSULTING: 10/27/18 1735 ADM IN [facility] [address] [place] [id number]
--- NOTE | 2018-10-29 14:15 | MORECARE ---
CASE MANAGEMENT DISCHARGE SUMMARY PATIENT: BERNARD CHOU UNIT: [id number] ADM DATE: 10/26/18 AGE: 63 : 55 SEX: F ROOM/BED: D.2225 AUTHOR: NISH WILHELM PHYSICIAN: REFERRING PHYSICIAN: ERIC HAMEED MD DATE OF SERVICE: 10/29/18 Discharge Plan Patient Name: BERNARD CHOU Facility: [facility]:[place] : 1955 Planned Disposition: Home Anticipated Discharge Date: 10/21/18 Discharge Date: Expected LOS: -5 Initial Reviewer: [email or web address] Initial Review Date: 10/26/2018 Generated: 10/29/18 3:15 pm Comments DCP- Discharge Planning Updated by [email or web address]: Diana Estrella on 10/29/18 1:[address] Salinas signed oxygen order, faxed to [facility]. DCP- Discharge Planning Updated by [email or web address]: Diana Estrella on 10/28/18 1:[address] Sleep study and notes faxed to [facility]. Dakotah called and states he will bring patient her BIPAP today to the hospital. CM will continue to follow and assist with discharge planning/needs. DCP- Discharge Planning Updated by [email or web address]: Diana Estrella on 10/28/18 10:[address] Salinas states [facility] has been working on getting patient a BIPAP and would like me to call them and have them deliver it here. I also did a walk test and she qualifies for home oxygen. I called [facility] and spoke with Dakotah and Brigette. Brigette states that they have no record of this patient. I called Dr. Salinas's office and spoke with Vianney (his nurse). She states they have sent records and order to [facility] for BIPAP. I asked Vianney to fax the sleep study and the chart notes to me and [facility] to get this taken care of. CM will continue to follow and assist with discharge planning/needs. DCP- Discharge Planning Updated by [email or web address]: Sharon Stout on 10/26/18 6:[address] Patient Name: BERNARD CHOU Admission Status: ER Accout number: [id number] Admission Date: 10-26-2018 : 1955 Admission Diagnosis: Attending: ERIC HAMEED Current LOS: 1 Anticipated DC Date: 10-21-2018 Planned Disposition: Home Primary Insurance: [facility] MEDICARE SOLUTIONS Discharge Planning Comments: CM met with patient and her ex to complete initial dc planning assessment. CM educated patient on the CM role and verbal consent given by patient to complete assessment. CM verified patient's address, phone number, and emergency contact phone numbers. Patient lives at her brothers home who is a truck loader. The patient reports she is independent in her care at home. She reports she is to have a bipap through [facility] but they have not delivered it at this time. She reports she has been waiting since August for this bipap. At discharge patient plans to return to her brothers home and feels this is a safe discharge. CM discussed availability of home health, rehab services, and medical equipment. Patient denied known discharge needs at this time. Patient reports her ex brother will transport her home at time of discharge. CM will continue to follow and will assist as needed with dc plans/needs. Enterprise Mobility Architect: Sharon Stout RN, [facility] DCPIA - Discharge Planning Initial Assessment Updated by [email or web address]: Sharon Stout on 10/26/18 7:17 pm * Is the patient Alert and Oriented? Yes * How many steps to enter\exit or inside your home? * PCP Dr. Hameed * [facility] [address] * Preadmission Environment Home with Family * ADLs Independent * Equipment Cane Rolling Walker * Other Equipment Should have a bipap but [facility] has not delivered it. Has been waiting since August... * List name and contact numbers for known caregivers / representatives who currently or will assist patient after discharge: Kodi hudson - [phone] * Verbal permission to speak to the caregivers and representatives has been obtained from the patient. Yes * Community resources currently utilized None * Additional services required to return to the preadmission environment? Yes * Can the patient safely return to the preadmission environment? Yes * Has this patient been hospitalized within the prior 30 days at any hospital? No Coverage Notice Reviewer: [email or web address] Joe Estrella Notice Issued Date-Time: 10/28/2018 11:22 Notice Type: Patient Choice Letter Notice Delivered To: Patient Relationship to Patient: Self Quality Assurance Qa Lab Technician Name: Delivery Method: HAND - Hand Delivered Yael Days: Prior Verbal Notification: Recipient Understood Notice: Recipient Signature: Yes Med Rec Note Co-signed by Attending: Coverage Notice Comment: LESLY for [facility] Last DP export: 10/28/18 1:17 p Patient Name: BERNARD CHOU Page [id number] at 1415 All edits/amendments must be made on the electronic document DICTATION DATE: 10/29/181413 SEISMIC PLOTTER: MAIRA 10/29/181413 RPT#: [id number] DC DATE: STATUS: ADM IN [facility] [address] [place] [address] END OF REPORT
--- NOTE | 2018-10-29 15:18 | MORECARE ---
CASE MANAGEMENT DISCHARGE SUMMARY PATIENT: BERNARD CHOU UNIT: [id number] ADM DATE: 10/26/18 AGE: 63 : 55 SEX: F ROOM/BED: D.2225 AUTHOR: NISH WILHELM PHYSICIAN: REFERRING PHYSICIAN: ERIC HAMEED MD DATE OF SERVICE: 10/29/18 Discharge Plan Patient Name: BERNARD CHOU Facility: [facility]:[place] : 1955 Planned Disposition: Home Anticipated Discharge Date: 10/21/18 Discharge Date: Expected LOS: -5 Initial Reviewer: [email or web address] Initial Review Date: 10/26/2018 Generated: 10/29/18 4:17 pm Comments DCP- Discharge Planning Updated by [email or web address]: Diana Estrella on 10/29/18 2:[address] Spoke with Dakotah with [facility], he states they will deliver oxygen tonight. I called Dr. Salinas to have олег signed, he is out of the building and will sign tomorrow. I have left the DWO with Chace, community marketing manager, and she will notify weekend CM when signed. I also emailed Lisa Story to inform her. CM will continue to follow and assist with discharge planning/needs. DCP- Discharge Planning Updated by [email or web address]: Diana Estrella on 10/29/18 1:[address] Salinas signed oxygen order, faxed to [facility]. DCP- Discharge Planning Updated by [email or web address]: Diana Estrella on 10/28/18 1:[address] Sleep study and notes faxed to [facility]. Dakotah called and states he will bring patient her BIPAP today to the hospital. CM will continue to follow and assist with discharge planning/needs. DCP- Discharge Planning Updated by [email or web address]: Diana Estrella on 10/28/18 10:[address] Salinas states [facility] has been working on getting patient a BIPAP and would like me to call them and have them deliver it here. I also did a walk test and she qualifies for home oxygen. I called [facility] and spoke with Dakotah and Brigette. Brigette states that they have no record of this patient. I called Dr. Salinas's office and spoke with Vianney (his nurse). She states they have sent records and order to [facility] for BIPAP. I asked Vianney to fax the sleep study and the chart notes to me and [facility] to get this taken care of. CM will continue to follow and assist with discharge planning/needs. DCP- Discharge Planning Updated by [email or web address]: Sharon Stout on 10/26/18 6:[address] Patient Name: BERNARD CHOU Admission Status: ER Accout number: [id number] Admission Date: 10-26-2018 : 1955 Admission Diagnosis: Attending: ERIC HAMEED Current LOS: 1 Anticipated DC Date: 10-21-2018 Planned Disposition: Home Primary Insurance: [facility] MEDICARE SOLUTIONS Discharge Planning Comments: CM met with patient and her ex to complete initial dc planning assessment. CM educated patient on the CM role and verbal consent given by patient to complete assessment. CM verified patient's address, phone number, and emergency contact phone numbers. Patient lives at her brothers home who is a truck driver flatbed. The patient reports she is independent in her care at home. She reports she is to have a bipap through [facility] but they have not delivered it at this time. She reports she has been waiting since August for this bipap. At discharge patient plans to return to her brothers home and feels this is a safe discharge. CM discussed availability of home health, rehab services, and medical equipment. Patient denied known discharge needs at this time. Patient reports her ex brother will transport her home at time of discharge. CM will continue to follow and will assist as needed with dc plans/needs. Children'S Lunchroom Supervisor: Sharon Stout RN, [facility] DCPIA - Discharge Planning Initial Assessment Updated by [email or web address]: Sharon Stout on 10/26/18 7:17 pm * Is the patient Alert and Oriented? Yes * How many steps to enter\exit or inside your home? * PCP Dr. Hameed * Pharmacy [facility] [address] * Preadmission Environment Home with Family * ADLs Independent * Equipment Cane Rolling Walker * Other Equipment Should have a bipap but [facility] Patient has not delivered it. Has been waiting since August... * List name and contact numbers for known caregivers / representatives who currently or will assist patient after discharge: Kodi Chou [place] [phone] * Verbal permission to speak to the caregivers and representatives has been obtained from the patient. Yes * Community resources currently utilized None * Additional services required to return to the preadmission environment? Yes * Can the patient safely return to the preadmission environment? Yes * Has this patient been hospitalized within the prior 30 days at any hospital? No Coverage Notice Reviewer: [id number] Joe Estrella Notice Issued Date-Time: 10/28/2018 11:22 Notice Type: Patient Choice Letter Notice Delivered To: Patient Relationship to Patient: Self Dredge Mate Name: Delivery Method: HAND - Hand Delivered Yael Days: Prior Verbal Notification: Recipient Understood Notice: Recipient Signature: Yes Med Rec Note Co-signed by Attending: Coverage Notice Comment: LESLY for [facility] Last DP export: 10/29/18 1:15 p Patient Name: BERNARD CHOU Page [id number] at 1518 All edits/amendments must be made on the electronic document DICTATION DATE: 10/29/181516 ELECTRICAL SIGN WIRER HELPER: MAIRA 10/29/181516 RPT#: [id number] DC DATE: STATUS: ADM IN [facility] [address] [place] [address] END OF REPORT
[2018-10-29 17:23] VITALS: BP 148/83
[2018-10-29 20:00] VITALS: BP 125/60
[2018-10-30] VITALS: BP 129/61
[2018-10-30 04:00] VITALS: BP 131/68
--- NOTE | 2018-10-30 04:16 | NUR ---
ASSESSED AT THE BEGINNING OF THE SHIFT. PT REMAINS ALERT AND ORIENTED AND CAN VERBALIZE NEEDS. SHE IS PLEASANT AND HAS VOICED NO COMPLAINTS OF PAIN. SHE STATED SHE IS FEELING MUCH BETTER AND STRONGER. AT HS SHE TOOK HER MEDS AND HER BLOOD SUGAR WAS 165, WHICH IS MUCH BETTER. SHE DID EAT A SNACK TO MAKE SURE SHE DID NOT GET TOO LOW. TELEMETRY IS SHOWING SINUS RHYTHM IN THE 60'S AND SHE IS WEARING HER BIPAP FROM HOME DURING THE NIGHT.
[2018-10-30 05:50] LABS: BASOPHILS 0 % (0-2); EOSINOPHILS 0.1 % (0-7); HEMATOCRIT 26.8 % (36.0-48.0); HEMOGLOBIN 8.6 g/dL (12-16); IMMATURE GRANULOCYTES 0.5 % (0-5); LYMPHOCYTES 17.9 % (15-50); MCH 27.9 pg (26.0-34.0); MCHC 32.1 g/dL (31.0-37.0); MEAN PLATELET VOLUME 10.3 fL (7.4-10.4); MONOCYTES 12.7 % (2-11); NEUTROPHILS 68.8 % (40-80); PLATELET COUNT 188 10x3/uL (130-400); RBC 3.08 10x6/uL (4.00-5.40); RDW 18.4 % (11.5-14.5); WBC 8.6 10x3/uL (4.8-10.8)
[2018-10-30 06:05] LABS: ANION GAP 9.6 mmol/L (8-16); CALCIUM 8.8 mg/dL (8.5-10.1); CARBON DIOXIDE 34.4 mmol/L (21.0-32.0); CREATININE - SERUM 1.3 mg/dL (0.6-1.3)
[2018-10-30 09:12] VITALS: BP 134/62
--- NOTE | 2018-10-30 11:15 | NUR ---
IV DC WITH CATH INTACT DC INSTCUTIONS GIVEN PT VERABLIZES UNDERSTANDING FAMILY AT BEDSIDE EDUACTED ON MEDS TO TAKE AND NOT TO TAKE AND FOODS TO AVOID LEAVING VIA WHEELCHAIR VIA HOSTPIAL STAFF VIA PRIVATE VECHILE IN STABLE CONDITION
== END 2018-10-30 11:20 | disposition home or self-care (01) | DRG 205 ==
LOC: D.ER 13:41 → D.EDHOLD 18:18 → D.MS 18:18
PROVIDERS: Family Medicine; Internal Medicine Gastroenterology; ADMIT Family Medicine; ATTEND Family Medicine
PROC: 0DJ08ZZ Inspection of Upper Intestinal Tract, Via Natural or Artificial Opening Endoscopic (ICD-10-PCS; principal; 2018-10-28 16:00)
DX: J98.4 Other disorders of lung (principal); K29.71 Gastritis, unspecified, with bleeding; Z68.42 Body mass index [BMI] 45.0-49.9, adult; J98.11 Atelectasis; I50.22 Chronic systolic (congestive) heart failure; D64.9 Anemia, unspecified; E66.01 Morbid (severe) obesity due to excess calories; I25.10 Atherosclerotic heart disease of native coronary artery without angina pectoris; E78.5 Hyperlipidemia, unspecified; E11.9 Type 2 diabetes mellitus without complications; K21.0 Gastro-esophageal reflux disease with esophagitis

== ENCOUNTER 2019-04-26 13:26 | Inpatient (IN) | payer MEDICARE, MEDICAID ==
[2019-04-26] VITALS (7 sets, daily range): BP systolic 101–123; BP diastolic 56–66; BMI 46.8
[~2019-04-26] VITALS: Ht 165.1 cm; Wt 127.5 kg
[2019-04-26 13:46] LABS: BASOPHILS 0.2 % (0-2); EOSINOPHILS 0.5 % (0-7); HEMATOCRIT 36.9 % (36.0-48.0); HEMOGLOBIN 11.7 g/dL (12-16); IMMATURE GRANULOCYTES 0.4 % (0-5); LYMPHOCYTES 12.5 % (15-50); MCH 28.3 pg (26.0-34.0); MCHC 31.7 g/dL (31.0-37.0); MCV 89.1 fL (80.0-100.0); MEAN PLATELET VOLUME 10.3 fL (7.4-10.4); MONOCYTES 6.3 % (2-11); NEUTROPHILS 80.1 % (40-80); RBC 4.14 10x6/uL (4.00-5.40); RDW 15.9 % (11.5-14.5); WBC 10.8 10x3/uL (4.8-10.8)
[2019-04-26 13:47] LABS: PLATELET COUNT 239 10x3/uL (130-400)
[2019-04-26 13:54] LABS: CALC OSMOLALITY 283 mosm/kg (275-300); CALCIUM 8.7 mg/dL (8.5-10.1); CARBON DIOXIDE 28.6 mmol/L (21.0-32.0); CHLORIDE - SERUM 101 mmol/L (98-107); CREATININE - SERUM 1.4 mg/dL (0.6-1.3); GLUCOSE 234 mg/dL (74-106); POTASSIUM - SERUM 5.4 mmol/L (3.5-5.1); SODIUM 136 mmol/L (136-145); UREA NITROGEN 24 mg/dL (7-18); eGFR NON AFRICAN AMERICAN 40 mL/min (90-120)
[2019-04-26 13:55] LABS: APTT 30.9 SECONDS (22.8-39.4); INR 1.2 (0.85-1.17); PROTIME 14.7 SECONDS (11.6-15.0)
[2019-04-26 14:10] LABS: ALBUMIN 3.1 g/dL (3.4-5.0); ALKALINE PHOSPHATASE 150 U/L (46-116); ALT (SGPT) 19 U/L (10-68); BILIRUBIN - TOTAL 1.41 mg/dL (0.2-1.3); CKMB 0.5 U/L (0.0-3.6); CREATINE KINASE 21 UL (21-215); PRO BNP 7322 pg/mL (0-125); PROTEIN - SERUM 6.9 g/dL (6.4-8.2)
[2019-04-26 14:13] LABS: TROPONIN-I < 0.017 ng/mL (0.000-0.060)
--- NOTE | 2019-04-26 14:50 | NUR ---
CALLED LAB FOR TECH TO COME 'S JAVIER FONTAINE
--- NOTE | 2019-04-26 14:59 | NUR ---
TO CT VIA STRETCHER WITH CORPORATE LOGISTICS MANAGER
--- NOTE | 2019-04-26 15:16 | NUR ---
PT RTND TO T2. LAB AT [facility] FOR BC'S
--- NOTE | 2019-04-26 15:50 | NUR ---
ASSISTED UP TO BSC, VOIDED 400 ML CLEAR YELLOW URINE, SPECIMEN OBTAINED, LABELED AT BS AND SENT TO LAB. EDGAR RHOADES
[2019-04-26 16:00] LABS: APPEARANCE CLEAR (CLEAR); BILIRUBIN NEGATIVE (NEGATIVE); COLOR YELLOW (YELLOW); GLUCOSE NEGATIVE (NEGATIVE); KETONE NEGATIVE (NEGATIVE); NITRITE NEGATIVE (NEGATIVE); PROTEIN NEGATIVE (NEGATIVE); UROBILINOGEN NORMAL (NORMAL)
--- NOTE | 2019-04-26 16:18 | NUR ---
ATTEMPTED TO CALL REPORT, RN UNAVAILABLE
--- NOTE | 2019-04-26 16:40 | NUR ---
REPORT TO MITZI JOHNSON
--- NOTE | 2019-04-26 16:50 | NUR ---
TRANPORTED TO ROOM #3521, CONDITION STABLE
--- NOTE | 2019-04-26 16:57 | MORECARE ---
CASE MANAGEMENT DISCHARGE SUMMARY PATIENT: BERNARD CHOU UNIT: [id number] ADM DATE: 04/26/19 AGE: 64 : 55 SEX: F ROOM/BED: D.1504 AUTHOR: MELONIEDOC PHYSICIAN: REFERRING PHYSICIAN: ANDRES CADET MD DATE OF SERVICE: 04/26/19 Discharge Plan Patient Name: BERNARD CHOU Facility: [facility]:[place] : 1955 Planned Disposition: Anticipated Discharge Date: 04/27/19 Discharge Date: Expected LOS: 1 Initial Reviewer: [email or web address] Initial Review Date: 04/26/2019 Generated: 04/26/19 5:57 pm DCP- Discharge Planning Updated by [email or web address]: Sharon Stout on 04/26/19 3:[address] DC PLAN: Return home to her brothers. ANTICIPATED DC NEEDS: Unsure of dc needs. Has home O2,portability, bipap. CM met with patient to complete initial dc planning assessment. CM educated patient on the CM role and verbal consent given by patient to complete assessment. CM verified patient's address, phone number, and emergency contact phone numbers. Patient lives at her brothers and reports she takes care of herself for the most part. At discharge patient plans to return to her brothers and feels this is a safe discharge. CM discussed availability of home health, rehab services, and medical equipment. Patient denied known discharge needs at this time. She said she may need something at dc. Transportation provider at discharge will be Bill her ex-. CM will continue to follow and will assist as needed with dc plans/needs. Sharon Stout RN, [facility] DCPIA - Discharge Planning Initial Assessment Updated by [email or web address]: Sharon Stout on 04/26/19 4:53 pm * Is the patient Alert and Oriented? Yes * How many steps to enter\exit or inside your home? * PCP Dr. Hernandez * Pharmacy [facility] * Preadmission Environment Home with Family * ADLs Independent * Equipment BIPAP Cane Nebulizer Oxygen * List name and contact numbers for known caregivers / representatives who currently or will assist patient after discharge: Kodi Chou - brother - [phone] * Verbal permission to speak to the caregivers and representatives has been obtained from the patient. Yes * Community resources currently utilized None * Additional services required to return to the preadmission environment? No * Can the patient safely return to the preadmission environment? Yes * Has this patient been hospitalized within the prior 30 days at any hospital? No Coverage Notice Reviewer: [id number] Joe Stout Notice Issued Date-Time: 04/26/2019 16:49 Notice Type: Medicare Outpatient Observation Notice Notice Delivered To: Patient Relationship to Patient: Marketing Senior Recruiter Name: Delivery Method: HAND - Hand Delivered Yael Days: Prior Verbal Notification: Recipient Understood Notice: Recipient Signature: Med Rec Note Co-signed by Attending: Coverage Notice Comment: Patient Name: BERNARD CHOU Page [id number] at 1657 All edits/amendments must be made on the electronic document DICTATION DATE: 04/26/191656 BUSINESS TRAINER: MAIRA 04/26/191656 RPT#: [id number] NE DATE: STATUS: ADM IN [facility] [address] [place] [address] END OF REPORT
[2019-04-26] MEDS ORDERED: MIRALAX17 GM PO (17:07)
[2019-04-26] MEDS ORDERED: NITROSTAT0.4 MG SL (17:08)
[2019-04-26] MEDS ORDERED: GABAPENTIN100 MG PO (19:18)
[2019-04-26] MEDS ORDERED: BUMEX2 MG PO (19:19)
[2019-04-26] MEDS ORDERED: SYNTHROID100 MCG PO (19:23)
--- NOTE | 2019-04-26 19:38 | NUR ---
RECEIVED BEDSIDE REPORT. PATIENT IS ALERT AND ORIENTED, RESTING COMFORTABLY IN BED. RESPIRATIONS ARE EVEN AND UNLABORED. NO S/S OF DISTRESS. NO C/O PAIN. MD IN ROOM. CALL LIGHT WITHIN REACH. WILL CPOC.
[2019-04-27 01:21] VITALS: BP 106/50
[2019-04-27 04:00] VITALS: BP 109/64
[2019-04-27 06:03] LABS: ANION GAP 9.2 mmol/L (8-16); CALCIUM 8.6 mg/dL (8.5-10.1); CARBON DIOXIDE 30.8 mmol/L (21.0-32.0); CREATININE - SERUM 1.4 mg/dL (0.6-1.3)
[2019-04-27 06:13] LABS: BASOPHILS 0.2 % (0-2); EOSINOPHILS 1.4 % (0-7); HEMATOCRIT 34.6 % (36.0-48.0); IMMATURE GRANULOCYTES 0.2 % (0-5); LYMPHOCYTES 23.3 % (15-50); MCH 28.2 pg (26.0-34.0); MCHC 31.8 g/dL (31.0-37.0); MCV 88.7 fL (80.0-100.0); MEAN PLATELET VOLUME 10.3 fL (7.4-10.4); MONOCYTES 7.4 % (2-11); NEUTROPHILS 67.5 % (40-80); PLATELET COUNT 236 10x3/uL (130-400); RDW 16.2 % (11.5-14.5); WBC 8.1 10x3/uL (4.8-10.8)
[2019-04-27 08:00] VITALS: BP 96/55
[2019-04-27 12:16] VITALS: BP 84/55
[2019-04-27 13:02] VITALS: Ht 165.1 cm; Wt 127.5 kg
--- NOTE | 2019-04-27 13:57 | HP ---
PATIENT: BERNARD CHOU MEDICAL RECORD: [id number] ACCOUNT: [id number] LOCATION:[address] : 55 ADMISSION DATE: 04/26/19 PCP: ERIC HAMEED MD HISTORY AND PHYSICAL EXAMINATION HISTORY OF PRESENT ILLNESS: This is a 64-year-old female who has a history of diabetes, chronic systolic CHF, paroxysmal atrial fibrillation, and restrictive lung disease, came to the Emergency Department via EMS complaining of shortness of breath for the last 4 days. She was on BiPAP when she got to the Emergency Department. She admits over the last few days that she is not taking her Bumex as prescribed. Workup in the Emergency Department showed D-dimer to be elevated. CTA of the chest with PE protocol showed no PE changes in the lungs were consistent with CHF. Troponin was negative. She is admitted for further treatment. PAST MEDICAL HISTORY: Diabetes, coronary artery disease with a stent, paroxysmal atrial fibrillation, restrictive lung disease, depression, obesity, hypertension, hypothyroid, and chronic anemia. PAST SURGICAL HISTORY: Cardiac stent and cataract repair. ALLERGIES: ADHESIVE TAPE AND DECADRON. HOME MEDICATIONS: Toujeo insulin 26 units twice a day, gabapentin 100 mg twice a day, levothyroxine 100 mcg once a day, Bumex 2 mg twice a day, nitroglycerin sublingually p.r.n., diltiazem 360 mg once a day, duloxetine 60 mg once a day, sotalol 120 mg twice a day, metoprolol tartrate 50 mg twice a day, potassium 20 mEq twice a day, allopurinol 300 one half once a day, atorvastatin 10 mg once a day, Humalog insulin 28 units with each meal, iron sulfate 1 pill a day, and aspirin 81 mg a day. SOCIAL HISTORY: She is . She is disabled. FAMILY HISTORY: Father , he had coronary artery disease, colon cancer, and an aneurysm. Mother is alive with diabetes and hypertension. HABITS: She never smoked. No alcohol or drugs. REVIEW OF SYSTEMS: GENERAL: No major weight changes. HEENT: No particular sinus or allergy problems. RESPIRATORY: She is followed by Dr. Salinas and was told that her lungs are too small for her body. She just saw Dr. Salinas last week. She was told not to use her oxygen unless she needed it and not to use her inhaler unless she needed it. GASTROINTESTINAL: GI has occasional heartburn. GENITOURINARY: No significant problems there. MUSCULOSKELETAL: No significant arthritis. NEUROLOGIC: No migraines or seizures. PSYCHIATRIC: She has depression. PHYSICAL EXAMINATION: VITAL SIGNS: Temperature 97.9, pulse 109, respirations 20, blood pressure 101/63, O2 sat 98%. GENERAL: She does not appear in acute distress currently. She is in the hospital bed. HISTORY AND PHYSICAL [id number] JOSÉ ANTONIO,BERNARD ASHLI SKIN: Warm and dry. HEENT: Grossly within normal limits. NECK: Supple. HEART: Regular rate and rhythm. LUNGS: With decreased breath sounds in the bases bilaterally. ABDOMEN: Soft. EXTREMITIES: 1+ lower extremity edema. LABORATORY DATA: Urinalysis showed yellow, clear urine. It was normal. ABG showed pH 7.428, pCO2 of 38.5, pO2 was 120. CBC showed a white count of 10,800, hemoglobin 11.7, hematocrit 36.9. INR 1.20. D-dimer 1.72. Basic metabolic panel: Sodium 136, potassium 5.4, chloride 101, CO2 28.6, BUN 24, creatinine 1.4, glucose 234, and calcium 8.7. Liver functions were all okay. Troponin less 0.017. CTA of the chest showed no PE. There were changes consistent with congestive heart failure. ASSESSMENT: 1. Chronic systolic congestive heart failure with echo earlier this year showing EF of 35%, severe mitral regurgitation. 2. Fluid overload, not taking her Bumex correctly. 3. Restrictive lung disease. 4. Diabetes. 5. Paroxysmal atrial fibrillation. PLAN: Admit, diurese. Put her on telemetry. Consider cardiology and/or pulmonology referral, but we will see how she does with diuresis. We will check a pro-BNP. Other tests or procedures as warranted. TRANSINT:[id number] Voice Confirmation ID: [id number] DOCUMENT ID: [id number] ERIC HAMEED MD at 1357 CC: [id number] DICTATION DATE: 04/27/19 0044 QUARTER SECTION IRONER: 04/27/19 06 ADM IN [facility] [address] [place] [address]
[2019-04-27 15:47] VITALS: BP 101/59
[2019-04-27 20:00] VITALS: BP 104/62
[2019-04-28] VITALS: BP 107/56; BP 129/78
[2019-04-28 04:00] VITALS: BP 137/74
[2019-04-28 06:14] LABS: BASOPHILS 0.1 % (0-2); EOSINOPHILS 1.3 % (0-7); HEMOGLOBIN 10.7 g/dL (12-16); IMMATURE GRANULOCYTES 0.1 % (0-5); LYMPHOCYTES 26.1 % (15-50); MCH 27.9 pg (26.0-34.0); MCHC 31.5 g/dL (31.0-37.0); MCV 88.8 fL (80.0-100.0); MEAN PLATELET VOLUME 10.4 fL (7.4-10.4); MONOCYTES 7.9 % (2-11); NEUTROPHILS 64.5 % (40-80); PLATELET COUNT 231 10x3/uL (130-400); RBC 3.83 10x6/uL (4.00-5.40); RDW 15.9 % (11.5-14.5)
[2019-04-28 06:32] LABS: ANION GAP 9.4 mmol/L (8-16); CARBON DIOXIDE 32.4 mmol/L (21.0-32.0); CREATININE - SERUM 1.4 mg/dL (0.6-1.3); POTASSIUM - SERUM 3.8 mmol/L (3.5-5.1)
--- NOTE | 2019-04-28 07:10 | NUR ---
REPORT RECEIVED FROM SHOTGUN SHELL LOADING MACHINE OPERATOR AND PATIENT CARE ASSUMED. PATIENT SITTING UP IN BS CHAIR AWAKE, ALERT AND ORIENTED X 4. PATIENT DENIES ANY NEEDS OR PAIN. WILL CONTINUE WITH PLAN OF CARE. CALL LIGHT IN REACH.
[2019-04-28 10:39] VITALS: BP 100/52
--- NOTE | 2019-04-28 10:55 | NUR ---
PATIENT IS STABLE AND VSS. ORDERS RECIVED FOR DC. IV DCD WITHOUT DIFFICULTY WITH ENTIRE CATHETER INTACT. WRITTEN AND VERBAL INSTRUCTIONS GIVEN. PATIENT VERBALIZED UNDERSTANDING AND SIGNED PAPERS. PATIENT TO FRONT DOOR VIA WC ACCOMPANINED BY HOSPITAL PERSONNEL. PATIENT TO PRIVATE VEHICLE DRIVEN BY FAMILY MEMBER.
--- NOTE | 2019-04-29 16:46 | MORECARE ---
CASE MANAGEMENT DISCHARGE SUMMARY PATIENT: BERNARD CHOU UNIT: [id number] ADM DATE: 04/27/19 AGE: 64 : 55 SEX: F ROOM/BED: D.2600 AUTHOR: MELONIE,DOC PHYSICIAN: REFERRING PHYSICIAN: ANDRES CADET MD DATE OF SERVICE: 04/29/19 Discharge Plan Patient Name: BERNARD CHOU Facility: [facility]:[place] : 1955 Planned Disposition: Home Anticipated Discharge Date: 04/28/19 Discharge Date: 04/28/2019 Expected LOS: 1 Initial Reviewer: [email or web address] Initial Review Date: 04/26/2019 Generated: 04/29/19 5:46 pm DCP- Discharge Planning Updated by [email or web address]: Sharon Stout on 04/26/19 3:[address] DC PLAN: Return home to her brothers. ANTICIPATED DC NEEDS: Unsure of dc needs. Has home O2,portability, bipap. CM met with patient to complete initial dc planning assessment. CM educated patient on the CM role and verbal consent given by patient to complete assessment. CM verified patient's address, phone number, and emergency contact phone numbers. Patient lives at her brothers and reports she takes care of herself for the most part. At discharge patient plans to return to her brothers and feels this is a safe discharge. CM discussed availability of home health, rehab services, and medical equipment. Patient denied known discharge needs at this time. She said she may need something at dc. Transportation provider at discharge will be Bill her ex-. CM will continue to follow and will assist as needed with dc plans/needs. Sharon Stout RN, [facility] DCPIA - Discharge Planning Initial Assessment Updated by [email or web address]: Sharon Stout on 04/26/19 4:53 pm * Is the patient Alert and Oriented? Yes * How many steps to enter\exit or inside your home? * PCP Dr. Hernandez * Pharmacy [facility] the [facility] * Preadmission Environment Home with Family * ADLs Independent * Equipment BIPAP Cane Nebulizer Oxygen * List name and contact numbers for known caregivers / representatives who currently or will assist patient after discharge: Kodi Chou - brother - [phone] * Verbal permission to speak to the caregivers and representatives has been obtained from the patient. Yes * Community resources currently utilized None * Additional services required to return to the preadmission environment? No * Can the patient safely return to the preadmission environment? Yes * Has this patient been hospitalized within the prior 30 days at any hospital? No Coverage Notice Reviewer: [email or web address] Joe Stout Notice Issued Date-Time: 04/26/2019 16:49 Notice Type: Medicare Outpatient Observation Notice Notice Delivered To: Patient Relationship to Patient: Search Specialist Name: Delivery Method: HAND - Hand Delivered Yael Days: Prior Verbal Notification: Recipient Understood Notice: Recipient Signature: Med Rec Note Co-signed by Attending: Coverage Notice Comment: Last DP export: 04/26/19 3:57 Patient Name: BERNARD CHOU Page [id number] at 1646 All edits/amendments must be made on the electronic document DICTATION DATE: 04/29/191645 PIPE AND BOILER COVERS SUPERVISOR: MAIRA 04/29/191645 RPT#: [id number] DC DATE:04/28/19 STATUS: DIS IN [facility] [address] [place] [address] END OF REPORT
== END 2019-04-28 10:58 | disposition home or self-care (01) | DRG 292 ==
LOC: D.ER 13:26 → D.M2 15:46 → OBSVTIME 15:46 → D.M2 04-27 18:14
PROVIDERS: Family Medicine; ADMIT Family Medicine; ATTEND Family Medicine
DX: I11.0 Hypertensive heart disease with heart failure (principal); Z68.42 Body mass index [BMI] 45.0-49.9, adult; I50.22 Chronic systolic (congestive) heart failure; I25.10 Atherosclerotic heart disease of native coronary artery without angina pectoris; I48.0 Paroxysmal atrial fibrillation; F32.9 Major depressive disorder, single episode, unspecified; E03.9 Hypothyroidism, unspecified; J44.9 Chronic obstructive pulmonary disease, unspecified; E11.65 Type 2 diabetes mellitus with hyperglycemia; E66.9 Obesity, unspecified; I34.0 Nonrheumatic mitral (valve) insufficiency; Z91.14 Patient's other noncompliance with medication regimen

== ENCOUNTER 2019-05-05 13:19 | Inpatient (IN) | payer MEDICARE, MEDICAID ==
[~2019-05-05] VITALS: Ht 165.1 cm; Wt 125.1 kg
[2019-05-05] VITALS (11 sets, daily range): BP systolic 106–136; BP diastolic 68–87; BMI 47.3
--- NOTE | ~2019-05-05 | HEMODYNAMI ---
PATIENT:BERNARD CHOU MEDICAL RECORD: [id number] : 55 LOCATION:[facility] D[facility] [id number] ADMISSION DATE: 05/05/19 Generatedon:05/09/201911:20 Patient name: BERNARD CHOU Patient #: [id number] SSN: [id number] : 1955 Date of study: 05/09/2019 Page: Of Hemodynamic Procedure Report Patient Data Patient Demographics Procedure consent was obtained First Name: BERNARD Gender: Female Last Name: JOSÉ ANTONIO : 1955 Middle Initial: ASHLI Age: 64 year(s) Patient #: [id number] Race: SSN: [id number] Additional ID: [id number] Contact details Address: [place] [address] State: [place] City: [place] Zip code: [address] Past Medical History Allergies Allergen Reaction Date Comments Reported Other 09/13/2018 DECADRON, ADHESIVE allergy DRAPE Other 05/09/2019 DEXAMETHASONE/ADHESIVE allergy TAPE Admission Admission Data Admission Date: 05/05/2019 Admission Time: 16:31 Arrival Date: 05/09/2019 Arrival Time: 0:00 Admit Source: Emergency Insurance Payor: Medicare department [facility] #: [id number] Room #: D2112 Height (in.): 65 BSA: 2.3 (m2) Height (cm.): 165.1 BMI: 47.26 (kg/m2) Weight (lbs.): 284 Weight (kg.): 128.82 Lab Results Lab Result Date: 05/09/2019 Lab Result Time: 0:00 Biochemistry Name Units Result Min Max BUN mg/dl 32 --(----)-* 7 18 Creatinine mg/dl 1.2 --(---*)-- 0.6 1.3 eGFR ml/min 58 *-(----)-- 90 120 AM CBC Name Units Result Min Max Hematocrit % 31.3 *-(----)-- 42 54 Hemoglobin g/dl 9.9 *-(----)-- 13.5 17.5 Procedure Procedure Types Cath Procedure Diagnostic Procedure [facility] w/Coronaries FFR/IVUS FFR Initial Cardioversion External ANNALISA Sedation Charges Moderate Sedation up to 30 minutes PCI Procedure Coronary Stent Coronary Stent Initial Hemochron ACT Test Procedure Description Procedure Date Procedure Date: 05/09/2019 Procedure Start Time: 10:22 Procedure End Time: 11:19 Procedure Staff Name Function Chava Chanel MD Performing Physician Cristo Goodman RT Monitor Migue Porter RN Nurse Iraida Martin RT Scrub Britton Abel Jr SENIOR PORTFOLIO ANALYST Additional personnel Barbra Rogers Traffic Enumerator Procedure Data Cath Procedure Fluoroscopy Diagnostic fluoroscopy Total fluoroscopy Time: 4.2 time: 4.2 min min Diagnostic fluoroscopy Total fluoroscopy dose: 830 dose: 830 mGy mGy Contrast Material Contrast Material Type Amount (ml) Isovue 370 94 Entry Location Entry Primary Successful Side Size Upsize Upsize Entry Closure Succes sful Closure Location (Fr) 1 (Fr) 2 (Fr) Remarks Device Remarks Femoral Right 5 Fr 6 Fr Exoseal artery Short Estimated blood loss: 10 ml Diagnostic catheters Device Type Used For End Catheter Placement MULTIPACK Pigtail 5 Fr Procedure catheter MULTIPACK JL 4.0 5Fr Procedure catheter MULTIPACK 3DRC 5Fr Procedure catheter Procedure Complications No complications Procedure Medications Medication Administration Route Dosage Oxygen NC 4 l/min Refer to Anesthesia Notes for Sedation Medications Lidocaine 2% added to field 20 Heparin Flush Bag added to field 2 bags (1000units/500ml NS) 0.9% NaCl I.V. 100 ml/hr Heparin Bolus I.V. 4000 units Integrilin (Bolus I.V. 11.3 ml 2mg/ml) Plavix P.O. 600 mg Hemodynamics Rest BSA: 2.3 (m2) O2 Consumption: Estimated: 235.54 (ml/min) O2 Consumption indexed: Estimated:102.41 (ml/min/m) Heart Rate: 93 (bpm) Snapshots Pre Cath Intra NCS Post Cath Vital Signs Time Heart Resp SPO2 etCO2 NIBP (mmHg) Rhythm Pain Sedation Rate (ipm) (%) (mmHg) Status Level (bpm) 10:17:26 105 31 91 15.7 138/99(121) NSR 0 (11) 10(A) , No pain 10:21:38 106 30 89 1.5 134/67(106) NSR 0 (11) 9(A) , No pain 10:26:53 78 23 93 2.2 101/64(87) NSR 0 (11) 9(A) , No pain 10:30:49 90 25 94 0.7 111/74(98) NSR 0 (11) 9(A) , No pain 10:34:50 93 22 92 1.5 118/71(94) NSR 0 (11) 9(A) , No pain 10:39:48 110 22 94 0 121/80(95) NSR 0 (11) 9(A) , No pain 10:43:47 115 21 96 0 131/82(96) NSR 0 (11) 9(A) , No pain 10:52:09 119 20 94 13.5 129/94(102) NSR 0 (11) 9(A) , No pain 10:56:11 103 23 92 1.5 120/90(98) NSR 0 (11) 9(A) , No pain 11:00:12 89 23 89 0.7 117/76(86) NSR 0 (11) 9(A) , No pain 11:04:14 68 20 92 37.5 131/70(95) NSR 0 (11) 9(A) , No pain 11:08:22 69 18 92 10.5 133/73(111) NSR 0 (11) 10(A) , No pain 11:12:26 68 20 97 23.2 135/83(106) NSR 0 (11) 10(A) , No pain 11:16:31 71 17 94 31.4 137/80(113) NSR 0 (11) 10(A) , No pain Medications Time Medication Route Dose Verified Delivered Reason Notes Effectiveness by by 9:48:36 Oxygen NC 4 Chava Camarena Per physician cont l/min Darío Porter RN from [facility] floor 10:22:41 Refer to Chava Camarena Per physician Anesthesia Notes Darío Porter RN for Sedation Medications 10:22:49 Lidocaine 2% added 20ml Chava Larsen for local to vial Darío Chanel MD anesthetic field 10:23:00 Heparin Flush added 2 Chava Larsen used for Bag to bags Darío Chanel MD procedure (1000units/500ml field NS) 10:23:07 0.9% NaCl I.V. 100 Chava Camarena used for ml/hr Darío Porter RN procedure 10:29:13 Heparin Bolus I.V. 4000 Chava Camarena for verifi ed units Darío Porter RN anticoagulation with dr chanel 10:31:20 Integrilin I.V. 11.3 Chava Camarena for wasted (Bolus 2mg/ml) ml Darío Porter RN antiplatelet 8.7 ml therapy of vial 11:08:46 Plavix P.O. 600 Chava Camarena for mg Darío Porter RN antiplatelet therapy Procedure Log Time Note 9:30:12 Cristo Goodman RT(R) sent for patient. Start room use. 9:34:02 Informed consent obtained and on chart 9:36:53 Arrival Date: 05/09/2019 12:00:00 AM 9:37:36 Admit Source: Emergency department 9:37:54 Patient Height : 65 inches 9:37:54 Insurance Payor : Medicare 9:38:03 Patient Weight : 284 lbs 9:38:37 Diagnostic Cath Status : Urgent 9:39:09 Procedure Status Urgent Heart Cath (IP). 9:39:15 Time tracking: Regular hours (M-F 7:00 - 5:00) 9:39:22 Plan of Care:Hemodynamics will remain stable., Cardiac rhythm will remain stable., Comfort level will be maintained., Respiratory function will remain adequate., Patient/ family verbilizes understanding of procedure., Procedure tolerated without complication., Recovers from procedure without complications.. 9:39:29 ACC Patient presents with Unstable Angina CCS Anginal Class 4--Inability to carry out any physical activity w/o angina. Angina may occur at rest. 9:42:02 Lab Result : Creatinine 1.2 mg/dl 9:42:02 Lab Result : BUN 32 mg/dl 9:42:02 Lab Result : eGFR AM 58 ml/min 9:42:02 Lab Result : Hematocrit 31.3 % 9:42:02 Lab Result : Hemoglobin 9.9 g/dl 9:45:34 Risk of Mortality: 0.4 9:45:39 Risk of blood transfusion: 11.8 9:45:44 Risk of RITA: 3.8 9:45:50 Lab results completed and on chart. 9:46:09 Patient received from [employer] to CCL 1 Alert and oriented. Tansferred to table in Supine position. 9:46:46 Patient allergic to Other allergyDEXAMETHASONE/ADHESIVE TAPE 9:48:36 Oxygen 4 l/min NC was administered by Migue Porter RN; Per physician; cont from med floor Verbal order read back and verified. 9:52:59 Warm blankets applied, and lakeisha hugger turned on for patient comfort. 9:52:59 Correct patient and procedure confirmed by team. 9:53:01 ECG and BP/O2 sat monitors applied to patient. 9:53:21 IV left forearm D/C'd due to infiltration. 9:53:35 IV started by Migue Porter RN inright forearm with a 20 gauge IV catheter with 0.9% NaCl at KVO. 10:00:39 Britton Abel Jr, CRNA present and monitoring patient for TIVA. 10:16:22 Vital chart was started 10:16:24 Baseline sample Acquired. 10:16:29 Rhythm: atrial fibrillation 10:16:30 Full Disclosure recording started 10:16:45 H&P Date Dictated: 05/05/2019 Within 30 days and on chart.. 10:16:46 Pre-procedure instructions explained to patient. 10:16:47 Pre-op teaching completed and patient verbalized understanding. 10:16:51 Family in patients room. 10:16:53 Patient NPO since Midnight. 10:16:58 Is the patient allergic to Iodine/contrast media? No. 10:17:06 Is patient on blood thinner?Yes 10:17:09 ACC The patient was administered the following blood thiners within the last 24 hours: Eliquis 10:17:25 Patient diabetic? Yes. 10:17:27 If diabetic: On Metformin? No 10:17:29 Previous problem with sedation/anesthesia? No ? 10:17:30 Snore? Yes 10:17:30 Sleep apnea? Yes 10:17:32 Deviated septum? No 10:17:33 Opens mouth fully? Yes 10:17:34 Sticks out tongue? Yes 10:17:35 Airway obstruction? No ? 10:17:38 Dentures? No ? 10:17:44 Pre procedure: right dorsailis pedis pulse 1+ Palpable, but thready & weak; easily obliterated 10:18:17 IV started right lower forearm, unable to go radial. 10:18:21 Patient pain scale 0/10 ?. 10:18:28 Right groin area was prepped with chlora-prep and draped in sterile fashion 10:18:29 Alarms reviewed by RCathi N. 10:18:30 Sharps counted by scrub and verified by R.N. 10:18:32 Physician arrived 10:18:33 --------ALL STOP TIME OUT------ 10:18:33 Final Timeout: patient, procedure, and site verified with staff and physician. All members of the team are in agreement. 10:18:35 Right groin site verified by team. 10:18:39 Fire Safety Assessment: A--An alcohol-based skin anteseptic being used preoperatively., C--Open oxygen or nitrous oxide is being used., D--An ESU, laser, or fiber-optic light is being used. 10:19:02 Physical assessment completed. ASA score P 4 - A patient with severe systemic disease that is a constant threat to life as per Chava Chanel MD. 10:19:11 3a) 45-59 Moderately reduced kidney function. 10:19:23 Maximum allowable contrast dose (3.7 X eGFR X 0.75)133.2 ml. 10:19:27 Sedation plan: TIVA Medication:Propofol 10:19:49 Use device set Femoral Dx 10:19:54 ACIST Syringe (84695) opened to sterile field. 10:19:54 Bag Decanter (2001S) opened to sterile field. 10:19:57 Medline Cath Pack ([id number]) opened to sterile field. 10:19:59 ACIST Hand Control (64454) opened to sterile field. 10:20:00 ACIST Manifold (13232) opened to sterile field. 10:20:04 Tegaderm 4 x 4 (1626W) opened to sterile field. 10:20:04 DIAGNOSTIC Multipack 5Fr catheter set (XS4078) opened to sterile field. 10:20:06 SHEATH 5FR Rowley (QHA952) opened to sterile field. 10:20:07 EMERALD Guide Wire (645-073) opened to sterile field. 10:20:08 IV CATHETER 20g opened to sterile field. 10:20:09 Quick Combo opened to sterile field. 10:21:59 Procedure started. 10:22:03 Local anesthetic to right femoral artery with Lidocaine 2% by Chava Chanel MD.INITIAL ACCESS ONLY 10:22:36 A 5 Fr sheath was inserted into the Right Femoral artery 10::41 Refer to Anesthesia Notes for Sedation Medications was administered by Migue Porter RN; Per physician; Verbal order read back and verified. 10::46 A MULTIPACK Pigtail 5 Fr catheter was advanced over the wire and used for Procedure. 10::49 Lidocaine 2% 20ml vial added to field was administered by Chava Chanel MD; for local anesthetic; Verbal order read back and verified. 10:23:00 Heparin Flush Bag (1000units/500ml NS) 2 bags added to field was administered by Chava Chanel MD; used for procedure; Verbal order read back and verified. 10:23:07 0.9% NaCl 100 ml/hr I.V. was administered by Migue Porter RN; used for procedure; Verbal order read back and verified. 10:24:00 LV angiography performed. 10:24:27 LV gram done using PEREZ 10:24:34 EF : 35 % 10:24:40 Injector settings: Ml/sec: 5, Volume: 15, 10:24:45 Catheter removed. 10:24:57 A MULTIPACK JL 4.0 5Fr catheter was advanced over the wire and used for Procedure. 10:25:16 LCA angiography performed. 10:25:47 Catheter removed. 10:25:51 A MULTIPACK 3DRC 5Fr catheter was advanced over the wire and used for Procedure. 10:26:32 ACCDominant side:Right 10:26:36 RCA angiography performed. 10:26:39 Catheter removed. 10:26:43 Use device set TAU PCI 10::59 SHEATH 6FR Rowley (NWD493) opened to sterile field. 10:27:02 GUIDE 6FR XBLAD 4.0 catheter ([id number]) opened to sterile field. 10:27:06 CHOICE PT Extra Support 182cm wire ([id number]) opened to sterile field. 10:27:12 [place] Verrata Plus pressure wire (40969N) opened to sterile field. 10:27:59 Sheath upsized to a 6 Fr Short. 10:28:07 6 Fr XBLAD 4 guide catheter was inserted over the wire 10:28:34 FFR/IFR wire advanced. 10:29:13 Heparin Bolus 4000 units I.V. was administered by Migue Porter RN; for anticoagulation; verified with dr chanel Verbal order read back and verified. 10:29:44 Wire advanced across lesion. 10:30:29 mCirc lesion measured at 0.98 with IFR 10:31:06 Wire redirected to DIAG. 10:31:20 Integrilin (Bolus 2mg/ml) 11.3 ml I.V. was administered by Migue Porter RN; for antiplatelet therapy; wasted 8.7 ml of vial Verbal order read back and verified. 10:32:00 Pre PCI Site: [place] Diag1 has 90% stenosis. 10:32:04 ACC Pre-intervention NERI Flow is 3. 10:33:03 Inflate balloon Inflation number: 1 A EUPHORA 2.5 x 10 Balloon ([id number]) was prepped and advanced across the 1st Diag 90, then inflated to 21 PARAG for 0:10 (min:sec) -1. 10:33:33 Balloon removed over the wire. 10:35:59 Place stent Inflation Number: 2 A INTEGRITY RX 2.5 x 12 stent ([id number]) was prepped and advanced across the 1st Diag 90. The stent was deployed at 21 PARAG for 0:11 (min:sec) . 10:36:05 Stent catheter was removed intact over wire. 10:36:06 Wire removed. 10:36:07 Guide catheter removed. 10:36:09 ACC Post-intervention NERI Flow is 3. 10:36:17 Post PCI Site: [place] Diag1 has 0% stenosis. 10:36:28 EXOSEAL 6Fr (EX600) opened to sterile field. 10:36:50 Sheath removed intact; hemostasis achieved with Exoseal to the Right Femoral artery. 10:38:34 Barbra Cyril Sanitation Engineer present for ANNALISA. 10:47:58 Pt transferred back to bed for ANNALISA/Cardioversion. 10:48:03 Quick combo pads placed on patients chest and back. 10:49:55 Pt prepped for ANNALISA. 11:00:21 ANNALISA started. 11:01:34 ANNALISA completed. 11:02:21 Defibrillator synced and charged to 275 Joules. 11:02:29 Shock delivered. 11:02:50 Patient cardioverted to sinus rhythm . 11:04:22 Procedure ended.(Physican Out) 11:04:41 Fluoroscopy time 04.20 minutes. 11:04:45 Fluoroscopy dose: 830 mGy 11:04:45 Flurop Dose total: 830 11:04:50 Dose Area Product 31450 mGy/cm. 11:05:00 Contrast amount:Isovue 370 94ml. 11:05:03 Maximum allowable dose exceeded? No. 11:05:05 Sharps counted by scrub and verified by R.N. 11:05:26 Insertion/operative site no bleeding no hematoma. 11:05:29 Post-op/insertion site Right Femoral artery dressed using a 4 x 4 and Tegaderm. 11:05:31 Post Procedure Pulses reassessed and unchanged 11:05:35 Post-procedure physical assessment completed. ASA score P 4 - A patient with severe systemic disease that is a constant threat to life as per Chava Chanel MD. 11:05:38 Post procedure rhythm: sinus rhythm 11:05:40 Estimated blood loss: 10 ml 11:05:51 Post procedure instruction explained to patient.Patient verbalizes understanding. 11:05:51 Patient needs reinforcement of post procedure teaching. 11:07:17 Procedure type changed to Cath procedure, Diagnostic procedure, LHC, LHC w/Coronaries, FFR/IVUS, FFR Initial, Cardioversion External, ANNALISA, Sedation Charges, Moderate Sedation up to 30 minutes, PCI procedure, Coronary Stent, Coronary Stent Initial, Hemochron ACT Test 11:07:20 Procedure and supply charges have been captured, reviewed, submitted and are correct. 11:07:25 Procedure Complication : No complications 11:08:46 Plavix 600 mg P.O. was administered by Migue Porter RN; for antiplatelet therapy; Verbal order read back and verified. 11:08:58 ACT drawn and resulted at 285 seconds. (normal therapeutic range 180-240 seconds). 11:18:32 Vital chart was stopped 11:18:34 ANNALISA Findings: ANNALISA w/ cardioversion: no left atrial clot noted (proceed with cardioversion) 11:18:34 LHC Findings: MVD- PCI performed (see procedure note) 11:18:35 Operative report dictated upon procedure completion. 11:18:35 See physician's report for complete and final results. 11:19:14 Report given to PCU. 11:19:18 Patient transfered to PCU with Bed. 11:19:22 Procedure ended. 11:19:22 Full Disclosure recording stopped 11:19:31 End room use (Document Last) 11:20:05 End room use (Document Last) 11:20:28 End room use (Document Last) Intervention Summary Intervention Notes Time ActionType Lesion and Equipment Action# Pressure Duration Attributes Used 10:33:03 Inflate 1st Diag EUPHORA 2.5 1 21 00:10 balloon x 10 Balloon ([id number]) 10:35:59 Place stent 1st Diag INTEGRITY RX 2 21 00:11 2.5 x 12 stent ([id number]) Device Usage Item Name Manufacture Quantity Catalog Number Hospital Part Current M inimal Lot# / Charge Number Stock Stock Serial# Code ACIST Acist 1 08486 335387 040200 302615 2 0 Syringe Medical (48672) Systems Inc Bag Decanter Microtek 1 2001S 874837 53679 114702 5 (2001S) Medical Inc. Medline Cath Medline 1 [id number] 540781 94489 436354 5 Pack ([id number]) ACIST Hand Acist 1 78815 143844 830922 593481 5 Control Medical (39498) Systems Inc ACIST Acist 1 40074 169705 714177 686739 5 Manifold Medical (26450) Systems Inc Tegaderm 4 x 3M 1 1626W 585482 568776 016854 5 4 (1626W) DIAGNOSTIC Cardinal 1 YZ3580 100145 95439 775166 3 0 Multipack Health 5Fr catheter set (ZX2106) SHEATH 5FR Terumo 1 PDQ970 592766 864975 354117 5 Rowley (QDX831) EMERALD Cardinal 1 619-841 392339 372166 061310 5 Guide Wire Health (229-965) IV CATHETER B. Ba 1 7932094-37 419498 101753 799761 5 20g Quick Combo Edge Systems 1 50628-340204 749009 137966 598657 5 MULTIPACK Cardinal 1 063515 5 Pigtail 5 Fr Health catheter MULTIPACK JL Cardinal 1 575257 5 4.0 5Fr Health catheter MULTIPACK Cardinal 1 135083 5 3DRC 5Fr Health catheter SHEATH 6FR Terumo 1 MDV396 576539 690576 743767 4 0 Rowley (NZD322) GUIDE 6FR Cardinal 1 25801277 401044 781178 407666 3 XBLAD 4.0 Health catheter (04349208) CHOICE PT Savage 1 [id number] 673294 581422 909523 5 Extra Scientific Support 182cm wire ([id number]) [place] 1 13777W 831256 694885727 662974 5 Verrata Plus pressure wire (12046N) EUPHORA 2.5 Medtronic 1 [id number] 146028 260262 582026 5 [id number] x 10 Balloon ([id number]) INTEGRITY RX Medtronic 1 [id number] 805911 233365 491952 5 [id number] 2.5 x 12 stent ([id number]) EXOSEAL 6Fr Cardinal 1 EX600 669771 167624 823701 1 0 (EX600) Health Signature Audit Riva Stage Time Signature Unsigned Intra-Procedure 05/09/2019 Cristo Goodman 11:20:05 AM RT(R) Intra-Procedure 05/09/2019 Migue Porter RN 11:20:28 AM Intra-Procedure 05/09/2019 Chava Chanel 11:20:51 AM [id number] [place] [address]
[~2019-05-05 13:19] MED LIST changes: +GABAPENTIN100 MG PO; +MIRALAX17 GM PO; +NITROSTAT0.4 MG SL; +SYNTHROID100 MCG PO
[2019-05-05 14:16] LABS: BASOPHILS 0.2 % (0-2); EOSINOPHILS 0.1 % (0-7); HEMATOCRIT 35.1 % (36.0-48.0); HEMOGLOBIN 11.1 g/dL (12-16); IMMATURE GRANULOCYTES 0.3 % (0-5); LYMPHOCYTES 6.4 % (15-50); MCHC 31.6 g/dL (31.0-37.0); MCV 88.6 fL (80.0-100.0); MONOCYTES 7.9 % (2-11); NEUTROPHILS 85.1 % (40-80); RBC 3.96 10x6/uL (4.00-5.40); RDW 16.9 % (11.5-14.5); WBC 11.8 10x3/uL (4.8-10.8)
[2019-05-05 14:20] LABS: PLATELET COUNT 281 10x3/uL (130-400)
[2019-05-05 14:29] LABS: CALC OSMOLALITY 286 mosm/kg (275-300); CALCIUM 8.8 mg/dL (8.5-10.1); CARBON DIOXIDE 27.8 mmol/L (21.0-32.0); CHLORIDE - SERUM 99 mmol/L (98-107); CREATININE - SERUM 1.9 mg/dL (0.6-1.3); GLUCOSE 205 mg/dL (74-106); POTASSIUM - SERUM 5.6 mmol/L (3.5-5.1); SODIUM 136 mmol/L (136-145); UREA NITROGEN 39 mg/dL (7-18); eGFR NON AFRICAN AMERICAN 28 mL/min (90-120)
[2019-05-05 14:30] LABS: APTT 38.5 SECONDS (22.8-39.4); INR 1.82 (0.85-1.17); PROTIME 20.5 SECONDS (11.6-15.0)
[2019-05-05 15:04] LABS: ALBUMIN 3.4 g/dL (3.4-5.0); ALKALINE PHOSPHATASE 166 U/L (46-116); ALT (SGPT) 47 U/L (10-68); BILIRUBIN - TOTAL 2.06 mg/dL (0.2-1.3); CKMB 0.7 U/L (0.0-3.6); CREATINE KINASE 35 UL (21-215); PRO BNP 8655 pg/mL (0-125); PROTEIN - SERUM 7.1 g/dL (6.4-8.2); TROPONIN-I < 0.017 ng/mL (0.000-0.060)
--- NOTE | 2019-05-05 15:12 | NUR ---
SITTING UP ON BSC. A/OX3. RESP UNLABORED. SPEAKING FULL SENTENCES. HR 116-145 BPM MD AWARE. BP 106/79 (88)
--- NOTE | 2019-05-05 17:17 | NUR ---
CALLED DR GOULD RE CONTINUED FAST HR (120-145) ORDERS RCVD TO GIVE CARDIZEM 20MG IVP AND INCREASE CARDIZEM GTT TO 20 MG/HR
--- NOTE | 2019-05-05 18:09 | NUR ---
REPORT CALLED TO BRANDI SANDOVAL
--- NOTE | 2019-05-05 18:10 | MORECARE ---
CASE MANAGEMENT DISCHARGE SUMMARY PATIENT: BERNARD CHOU UNIT: [id number] ADM DATE: 05/05/19 AGE: 64 : 55 SEX: F ROOM/BED: D.558 AUTHOR: MELONIE,NISH PHYSICIAN: REFERRING PHYSICIAN: ERIC HAMEED MD DATE OF SERVICE: 05/05/19 Discharge Plan Patient Name: BERNARD CHOU Facility: [facility]:[place] : 1955 Planned Disposition: Home Anticipated Discharge Date: 05/07/19 Discharge Date: Expected LOS: 2 Initial Reviewer: [email or web address] Initial Review Date: 05/05/2019 Generated: 05/05/19 7:10 pm DCP- Discharge Planning Updated by [email or web address]: Sharon Stout on 05/05/19 5:[address] DC PLAN: Return home with her . ANTICIPATED DC NEEDS: Denied known DC needs. Meals on wheels info given. CM met with patient to complete initial dc planning assessment. CM educated patient on the CM role and verbal consent given by patient to complete assessment. CM verified patient's address, phone number, and emergency contact phone numbers. Patient lives at her brother's house. She reports she is able to care for herself. At discharge patient plans to return to her brother's house and feels this is a safe discharge. CM discussed availability of home health, rehab services, and medical equipment. Patient denied known discharge needs at this time. Transportation provider at discharge will be her ex . CM will continue to follow and will assist as needed with dc plans/needs. Sharon Stout RN, [facility] DCPIA - Discharge Planning Initial Assessment Updated by [email or web address]: Sharon Stout on 05/05/19 6:02 pm * Is the patient Alert and Oriented? Yes * How many steps to enter\exit or inside your home? * PCP Dr. Hameed * Pharmacy [facility] [address] by [facility]. * Preadmission Environment Home with Family * ADLs Independent * Equipment BIPAP Cane Oxygen Rolling Walker * Other Equipment O2 with portability. [facility] Patient is DME provider. * List name and contact numbers for known caregivers / representatives who currently or will assist patient after discharge: [facility] [phone] * Community resources currently utilized None * Additional services required to return to the preadmission environment? No * Can the patient safely return to the preadmission environment? Yes * Has this patient been hospitalized within the prior 30 days at any hospital? No Patient Name: BERNARD CHOU Page [id number] at 1810 All edits/amendments must be made on the electronic document DICTATION DATE: 05/05/191809 BOX TURNER: MAIRA 05/05/191809 RPT#: [id number] DC DATE: STATUS: ADM IN [facility] [address] [place] [address] END OF REPORT
--- NOTE | 2019-05-05 18:42 | NUR ---
TRANSPORTED TO ROOM #2112, CONDITION STABLE
--- NOTE | 2019-05-05 19:50 | NUR ---
EVENING ROUNDS COMPLETE, PT ARRIVED TO FLOOR DURING SHIFT CHANGE, FAMILY AT BEDSIDE. NO SIGNS OF DISTRESS. PT REQUEST FOR A CHAIR AT BEDSIDE DUE TO HER DIFFICULTY BREATHING WHEN LAYING IN BED. CHAIR PROVIDED. CL IN REACH, BED IN LOWEST POSITION.
--- NOTE | 2019-05-05 22:50 | NUR ---
PT IS 116 UNCONTROLLED AFIB WITH A BBB ON THE TELE MONITOR.
--- NOTE | 2019-05-06 00:17 | NUR ---
PT CARDIZEM DRIP WAS EMPTY, DOUBLE CHECKED INFUSION RATE, 10ML/HR SINCE PT WAS BROUGHT TO FLOOR AND THIS NURSE ASSUMED CARE.
[2019-05-06 03:50] VITALS: BP 129/66
[2019-05-06 05:02] LABS: BASOPHILS 0.1 % (0-2); EOSINOPHILS 0.1 % (0-7); HEMATOCRIT 32.2 % (36.0-48.0); HEMOGLOBIN 10.2 g/dL (12-16); IMMATURE GRANULOCYTES 0.1 % (0-5); LYMPHOCYTES 9.5 % (15-50); MCH 28.2 pg (26.0-34.0); MCHC 31.7 g/dL (31.0-37.0); MEAN PLATELET VOLUME 10.8 fL (7.4-10.4); MONOCYTES 9.3 % (2-11); NEUTROPHILS 80.9 % (40-80); RBC 3.62 10x6/uL (4.00-5.40); RDW 17.1 % (11.5-14.5)
[2019-05-06 05:08] LABS: PLATELET COUNT 217 10x3/uL (130-400); WBC 8.2 10x3/uL (4.8-10.8)
[2019-05-06 05:35] LABS: CALCIUM 8.8 mg/dL (8.5-10.1); CARBON DIOXIDE 31.9 mmol/L (21.0-32.0); CREATININE - SERUM 1.8 mg/dL (0.6-1.3); MAGNESIUM - SERUM 2.1 mg/dL (1.8-2.4); PHOSPHOROUS 4.5 mg/dL (2.5-4.9)
[2019-05-06 05:50] LABS: POTASSIUM - SERUM 3.9 mmol/L (3.5-5.1)
--- NOTE | 2019-05-06 07:10 | NUR ---
REPORT RECIEVED FROM SALES DRIVER AND PATIENT CARE ASSUMED. PATIENT SITTING UP BS CHAIR AWAKE, ALERT AND ORIENTED X 4. PATIENT IS STABLE AND VS. PATIENT DENIES ANY NEEDS OR PAIN. WILL CONTINUE WITH PLAN OF CARE. SR UP X 2 BED IN LOW POSITION AND CALL LIGHT IN REACH.
[2019-05-06 09:43] VITALS: BP 109/69
[2019-05-06 12:01] VITALS: BMI 47.2
[2019-05-06 12:14] VITALS: BP 116/47
[2019-05-06 16:17] VITALS: BP 105/67
--- NOTE | 2019-05-06 19:29 | NUR ---
INITIAL ROUNDS COMPLETED AT 1915 HRS. PT REQUESTS NEW O2 TUBING, SOMETHTING FOR A DAMON AND HAS C/O NASAL CONGESTION. NEW O2 TUBING PLACED. TYLENOL 650MG PO GIVEN FOR C/O DAMON. HUMIDIFIER PLACED ON O2. CALL LIGHT WITHIN REACH.
[2019-05-06 20:00] VITALS: BP 108/62
--- NOTE | 2019-05-06 20:18 | NUR ---
ASSESSMENT COMPLETED AT 1935 HRS. [facility] BBB HR 127. ALERT AND ORIENTED TO PERSON, PLACE AND TIME. ALBA. INSP WHEEZES NOTED. TO UPPER LOBES. DIMINISHED IN BASES BILAT. PRODUCTIVE COUGH WITH RUST COLORED SPUTUM NOTED. 2+ PITTING EDEMA NOTED TO LOWER EXTREMITIES. O2 3LNC. PT SITTING IN CHAIR, INCONTINENT OF URINE. PT CLEANED. PT TOLERATED ACTIVITY WELL. CALL LIGHT WITHIN REACH.
--- NOTE | 2019-05-06 22:59 | NUR ---
PT SITTING UP IN THE RECLINER. NO DISTRESS NOTED. CALL LIGHT WITHIN REACH.
[2019-05-07] VITALS: BP 100/54
--- NOTE | 2019-05-07 00:34 | NUR ---
PT SITTING UP IN REJI RECLINER RESTING WITH EYES CLOSED. RESP EVEN AND REGULAR. CALL LIGHT WITHIN REACH.
--- NOTE | 2019-05-07 02:32 | NUR ---
PT COUGHING UP BROWN SPUTUM. O2 SAT 98% ON 3LNC. UCAF PER CM HR 136. CALL LIGHT WITHIN REACH.
[2019-05-07 04:00] VITALS: BP 141/66
--- NOTE | 2019-05-07 04:31 | NUR ---
PT INCONTINENT OF URINE WITH COUGH. PT ASSISTED TO BSC. NEW PADS PALCED ON RECLINER. AWAITING PT'S CALL LIGHT TO ASSIST OFF BSC.
--- NOTE | 2019-05-07 05:36 | NUR ---
CAF/UCAF PER CM. PT INCONTINENT OF URINE WITH COUGH. RESTED WELL DURING SHIFT. NEEDS MET; WILL CONTINUE TO MONITOR.
--- NOTE | 2019-05-07 07:00 | NUR ---
RECEIVED REPORT. ASSUMED CARE OF PATIENT. RESTING WITH EYES CLOSED, SITTING UP IN RECLINER CHAIR AT BEDSIDE. PATIENT IS EASILY AROUSED. PATIENT WITH A PRODUCTIVE COUGH, PRODUCING DARK YELLOW SPUTUM. CALL LIGHT WITHIN REACH. NO DISTRESS.
[2019-05-07 08:26] VITALS: BP 137/68
--- NOTE | 2019-05-07 09:30 | NUR ---
FSBS 284, 26 UNITS LANTUS ADMINISTERED PER SLIDING SCALE.
--- NOTE | 2019-05-07 09:30 | NUR ---
FSBS 284. 26 UNITS LANTUS ADMINISTERED ORDERED.
--- NOTE | 2019-05-07 11:35 | NUR ---
FSBS 330. 20 UNITS HUMULIN INSULIN ADMINISTERED PER SLIDING SCALE. NO DISTRESS.
[2019-05-07 12:03] VITALS: BP 115/56
--- NOTE | 2019-05-07 12:49 | NUR ---
MEDICATED FOR TEMP OF 100 AT THIS TIME. NO DISTRESS.
--- NOTE | 2019-05-07 13:53 | NUR ---
CALLED PHARMACY TO REQUEST THE CARDIZEM DRIP FOR PATIENT IT IS NOT ON THE UNIT IN THE REFRIGERATOR.
[2019-05-07 16:16] VITALS: BP 113/55
--- NOTE | 2019-05-07 16:44 | NUR ---
FSBS 192. 8 UNITS HUMULIN R ADMINISTERED PER SLIDING SCALE.
--- NOTE | 2019-05-07 19:00 | NUR ---
REPORT RECEIVED. PT UP IN CHAIR. NO S/SX OF DISTRESS NOTED. CALL LIGHT IN REACH. WILL CTM.
[2019-05-07 20:00] VITALS: BP 132/68
[2019-05-08] VITALS: BP 138/68
[2019-05-08 04:00] VITALS: BP 118/62
[2019-05-08 04:00] LABS: BASOPHILS 0.2 % (0-2); EOSINOPHILS 0 % (0-7); HEMATOCRIT 29.5 % (36.0-48.0); HEMOGLOBIN 9.3 g/dL (12-16); IMMATURE GRANULOCYTES 0.2 % (0-5); LYMPHOCYTES 10.6 % (15-50); MCH 27.8 pg (26.0-34.0); MCHC 31.5 g/dL (31.0-37.0); MCV 88.1 fL (80.0-100.0); MEAN PLATELET VOLUME 10.8 fL (7.4-10.4); MONOCYTES 11.6 % (2-11); NEUTROPHILS 77.4 % (40-80); PLATELET COUNT 165 10x3/uL (130-400); RBC 3.35 10x6/uL (4.00-5.40); RDW 16.9 % (11.5-14.5); WBC 5.2 10x3/uL (4.8-10.8)
[2019-05-08 04:06] LABS: ANION GAP 10.9 mmol/L (8-16); CALCIUM 8.5 mg/dL (8.5-10.1); CARBON DIOXIDE 31.8 mmol/L (21.0-32.0); CREATININE - SERUM 1.4 mg/dL (0.6-1.3); POTASSIUM - SERUM 3.7 mmol/L (3.5-5.1)
--- NOTE | 2019-05-08 07:00 | NUR ---
RECEIVED REPORT. ASSUMED CARE OF PATIENT. PATIENT SITTING UP TO CHAIR AT BEDSIDE. RESP EVEN AND UNLABORED. CALL LIGHT WITHIN REACH. NO DISTRESS. PATIENT DENIES ANY NEEDS AT THIS TIME. CARDIZEM INFUSING ORDERED.
[2019-05-08 08:19] VITALS: BP 116/66
--- NOTE | 2019-05-08 10:05 | NUR ---
FSBS 226. 26 UNITS LANTUS ADMINISTERED ORDERED.
--- NOTE | 2019-05-08 10:20 | NUR ---
BED BATH AND LINEN CHANGE COMPLETED AT THIS TIME.
[2019-05-08 11:48] VITALS: BP 113/57
--- NOTE | 2019-05-08 12:17 | NUR ---
FSBS 218. 12 UNITS HUMULIN R ADMINISTERED PER SLIDING SCALE. NO DISTRESS.
[2019-05-08 16:44] VITALS: BP 141/79
--- NOTE | 2019-05-08 16:54 | NUR ---
FSBS 166. 8 UNITS HUMULIN ADMINISTERED PER SLIDING SCALE. NO DISTRESS.
--- NOTE | 2019-05-08 16:55 | NUR ---
ASSISTED PATIENT OUT OF CHAIR TO BEDSIDE COMMONZULMA. PATIENTS URINE DARK AND VERY MALODOROUS. CRANBERRY JUICE PROVIDED. PATIENT STATES THAT IT ONEAL WHEN SHE PEES, HAS PRESSURE AND URGENCY.
[2019-05-08 17:35] LABS: APPEARANCE CLEAR (CLEAR); BILIRUBIN NEGATIVE (NEGATIVE); COLOR YELLOW (YELLOW); GLUCOSE NEGATIVE (NEGATIVE); KETONE NEGATIVE (NEGATIVE); NITRITE POSITIVE (NEGATIVE); PROTEIN 1+ mg/dL (NEGATIVE); UROBILINOGEN NORMAL (NORMAL)
--- NOTE | 2019-05-08 17:42 | NUR ---
URINE SENT TO LAB, POSITIVE FOR NITRATES. SENSITIVITY PENDING.
[2019-05-08 20:00] VITALS: BP 141/68
[2019-05-09] VITALS (15 sets, daily range): BP systolic 111–161; BP diastolic 53–90; Ht 165.1 cm; Wt 125.1 kg
[2019-05-09 05:33] LABS: BASOPHILS 0 % (0-2); EOSINOPHILS 0 % (0-7); HEMATOCRIT 31.3 % (36.0-48.0); HEMOGLOBIN 9.9 g/dL (12-16); IMMATURE GRANULOCYTES 0.2 % (0-5); LYMPHOCYTES 16.6 % (15-50); MCH 27.8 pg (26.0-34.0); MCHC 31.6 g/dL (31.0-37.0); MCV 87.9 fL (80.0-100.0); MEAN PLATELET VOLUME 10.6 fL (7.4-10.4); MONOCYTES 13.3 % (2-11); NEUTROPHILS 69.9 % (40-80); PLATELET COUNT 175 10x3/uL (130-400); RBC 3.56 10x6/uL (4.00-5.40); RDW 16.8 % (11.5-14.5); WBC 4.5 10x3/uL (4.8-10.8)
[2019-05-09 05:57] LABS: ANION GAP 10.8 mmol/L (8-16); CALCIUM 8.6 mg/dL (8.5-10.1); CARBON DIOXIDE 31.8 mmol/L (21.0-32.0); CREATININE - SERUM 1.2 mg/dL (0.6-1.3); POTASSIUM - SERUM 3.6 mmol/L (3.5-5.1)
--- NOTE | 2019-05-09 07:25 | NUR ---
PT SITTING UP ON SIDE OF BED. NO DISTRESS NOTED. RR EVEN AND UNLBVAORED ON 4L NC. DENIES NEEDS OR PAIN AT THIS TIME. 20G TO LEFT AC INFUSING CARDIZEM @ 10ML/HR. BED INLOWEST POSITION.CALL LIGHT WITHIN REACH. WILL CONTINUE TO MONITOR.
--- NOTE | 2019-05-09 10:47 | NUR ---
I have reviewed this patient and I concur with the Shift Assessment completed by the Licensed Practical Nurse today this shift.
--- NOTE | 2019-05-09 14:21 | NUR ---
PATIENT CALLING OUT "I'M DROWNING IN HERE". SHE HAS PULLER HER NASAL CANNULA OFF AND SAT IS DOWN TO 80%. DR HAMEED WAS IN A FEW MINTUES AGO AND STATED THAT SHE SOUNDED WET. BRANDI KIRBY PRIMARY NURSE STATES THAT SHE WAS THIS WAY BEFORE PROCEDURE. I CALLED DR HAMEED AND ASKED IF WE COULD GIVE THE LASIX THAT WAS HELD EARILER. STATES YES. GIVEN .
--- NOTE | 2019-05-09 14:23 | NUR ---
Nutrition Follow-up: NPO for ANNALISA/cardioversion. Noted pt c/o constipation. Diet: Cardiac Diabetic PO intake: 25-100% No new wt - daily wts ordered Labs noted: Na 135, Glu 134, GFR 48 Meds noted: Humulin, Lantus, Lasix, Miralax -Rec resume diet following procedure as medically feasible. -Need new wt. -RD following.
--- NOTE | 2019-05-09 15:08 | NUR ---
PT STILL STATES SHE "CAN'T BREATH" O2 SAT RANGES FROM 88-98%. PT WILL TAKE OFF MASK AT TIMES. INSTRUCTED TO KEEP MASK ON. HOB ELEVATED TO 30 DEGREES BUT CANNOT RAISE MORE THAN THAT PT HAS APPROX. 45 MINUTES LEFT OF THE 4 HOURS POST CATH PROCEDURE. PT HAS FAMILY IN THERE WITH HER. WET WASH CLOTH PLACED ON PTs FOREHEAD AND FAN PLACED TOWARD PT. STATES SHE FEELS A LITTLE BETTER BUT STILL HAS LABORED BREATHING. WILL CONTINUE TO MONITOR.
--- NOTE | 2019-05-09 15:27 | NUR ---
PT SAT DROPPED TO 79%. PT IS CONFUSED. UNABLE TO ANSWER SIMPLE QUESTIONS. RAPID RESPONSE CALLED. PT IS CURRENTLY AT 15L NONREBREATHER. PT HANDED OVER TO BERKLEY GLASER RN. TRANSFERRED TO CVICU. ATTEMPTED X2 TO CALL REPORT TO MITZI FELICIANO. LEFT MESSAGE TO CALL BACK WHEN AVAILABLE.
--- NOTE | 2019-05-09 16:15 | NUR ---
FAMILY MADE AWARE OF EVENT, VERBALZIED UNDERSTANDING AND DENIES FURTHER QUESTIONS AT THIS TIME. FAMILY GUIDED TO ICU WAITING ROOM AND RN RECIEVING MADE AWARE OF FAMILY'S LOCATION
--- NOTE | 2019-05-09 16:58 | NUR ---
PT ARRIVED IN THE UNIT. CALLED MED 2 AND SPOKE WITH MIGDALIA PAZ FOR REPORT. PT HOOKED TO ICU MONITORS. NSR WITH PAC'S NOTED. BBB ALSO NOTED. PT CONFUSED AND LETHARGIC. ON BIPAP AT 100%. BRUSING NOTED TO UNBILICAL AREA. DRESSING TO R GROIN C/D/I WITH NO HEMATOMA PALPABLE. CRACKLES ASCULTATED THROUGHOUT LUNGS. +1 BLE EDEMA NOTED. 16 FR FC PLACED PER DR STEVEN USING STERILE TECHNIQUE. PT TOLERATED WELL. CLEAR, YELLOW URINE NOTED. CALL LIGHT IN REACH. WILL CONT POC.
--- NOTE | 2019-05-09 18:26 | NUR ---
DR STEVEN PAGED RT ABGS.
--- NOTE | 2019-05-09 19:30 | NUR ---
PT LETHARGIC, WILL INCONSISTENTLY FOLLOW SIMPLE COMMANDS, OPENS EYES. BIPAP IN PLACE, VSS. LUNG SOUNDS CRACKLES THROUGHOUT. S1S2 HEARD, PERIPHERAL PULSES PRESENT. BOWEL SOUNDS ACTIVE IN ALL QUADRANTS. DAS CATH IN PLACE WITH YELLOW URINE TO BEDSIDE DRAINAGE. BRUISING TO ABD. RT GROIN SOFT, NO S/S OF HEMATOMA AT THIS TIME. EDEMA NOTED TO BLE. PROMINENCES BRIDGED. CPOC.
--- NOTE | 2019-05-09 21:40 | NUR ---
BIPAP REMOVED ONLY DURING PO MEDICATION ADMINISTRATION. PT REMAINS LETHARGIC BUT AROUSES WHEN BIPAP MASK IS OFF AND AWAKENS TO TAKE MEDICATION WITH NO DIFFICULTY. BIPAP PLACED BACK ON ONCE FINISHED, VSS.
--- NOTE | 2019-05-09 22:00 | NUR ---
FAMILY AT BEDSIDE, UPDATE PROVIDED AND QUESTIONS ANSWERED. SEE PT/FAMILY EDUCATION FLOWSHEET. VSS, PT WILL OPEN EYES AND INCONSISTENTLY FOLLOW CAMMANDS. REMAINS LETHARGIC. REPOSTIONED FOR COMFORT, PROMINENCES BRIDGED. CPOC.
--- NOTE | 2019-05-09 22:30 | NUR ---
RETURN CHECKER NOTIFIED OF NEW MED ORDERS, PHARMACY NOT AVAILABLE AT THIS TIME.
--- NOTE | 2019-05-09 23:30 | NUR ---
REASSESSMENT COMPLETE, NO NEW CHANGES AT THIS TIME. PT REPOSITIONED WITH PROMINENCES BRIDGED. VSS, CPOC.
[2019-05-10] VITALS (27 sets, daily range): BP systolic 109–133; BP diastolic 48–59
--- NOTE | 2019-05-10 01:30 | NUR ---
RT GROIN SOFT, NO S/S OF HEMATOMA. UPPER ABD SOFT. PERIPHERAL PULSES PRESENT. VSS. BIPAP IN PLACE, SPO2 99. CPOC.
--- NOTE | 2019-05-10 03:30 | NUR ---
REASSESSMENT COMPLETE, SEE FLOWSHEET FOR ALL FINDINGS. PT REPOSITIONED WITH PROMINENCES BRIDGED. VSS, CPOC.
[2019-05-10 04:34] LABS: BASOPHILS 0.3 % (0-2); EOSINOPHILS 0 % (0-7); HEMOGLOBIN 9.1 g/dL (12-16); LYMPHOCYTES 23.7 % (15-50); MCH 27.6 pg (26.0-34.0); MCHC 31.4 g/dL (31.0-37.0); MCV 87.9 fL (80.0-100.0); MEAN PLATELET VOLUME 9.7 fL (7.4-10.4); MONOCYTES 13.4 % (2-11); NEUTROPHILS 62.6 % (40-80); RDW 16.7 % (11.5-14.5); WBC 3.4 10x3/uL (4.8-10.8)
[2019-05-10 04:44] LABS: PLATELET COUNT 138 10x3/uL (130-400)
--- NOTE | 2019-05-10 05:00 | NUR ---
PT REQUESTING A DRINK, FRESH WATER TO BEDSIDE, BIPAP OFF TO 6L NC, SPO2 97. PT AOX4, ANSWERING QUESTIONS APPROPRIATELY AT THIS TIME. VSS
[2019-05-10 05:04] LABS: ALBUMIN 2.3 g/dL (3.4-5.0); BILIRUBIN - TOTAL 1.01 mg/dL (0.2-1.3); CALCIUM 8.1 mg/dL (8.5-10.1); CARBON DIOXIDE 35.6 mmol/L (21.0-32.0); CREATININE - SERUM 1.4 mg/dL (0.6-1.3); MAGNESIUM - SERUM 2.1 mg/dL (1.8-2.4); PHOSPHOROUS 4.9 mg/dL (2.5-4.9); POTASSIUM - SERUM 3.6 mmol/L (3.5-5.1); PROTEIN - SERUM 6.1 g/dL (6.4-8.2)
--- NOTE | 2019-05-10 07:00 | NUR ---
REPORT RECEIVED FROM THE OFF GOING RN. SEE ASSESSMENT IN THE PTS FLOW SHEET. PT SITTING IN BED. VSS. ON 6L VIA NC. PT VERY DROWSEY BUT ABLE TO FOLLOW COMMANDS. CRACKLES/EXPITORY WHEEZING NOTED WITH BOTH LUNGS. LASIX GTT INFUSING. DRESSING NOTED TO R GROIN WITH NO HEMATOMA PALPATED. BLE +3 EDEMA NOTED. CALL LIGHT IN REACH. WILL CONT POC.
--- NOTE | 2019-05-10 07:30 | NUR ---
LABS RECEIVED. PT PLACED BACK ON BIPAP FIO2 40%. WILL CONT POC.
--- NOTE | 2019-05-10 09:09 | NUR ---
PAGED DR GOULD REGARDING BETAPACE AND CARDIZEM AND THE PTS HEART RATE 59 WITH A BBB AND FRIST DEGREE. DR GOULD STATED TO GO AHEAD AND GIVE THE PO MEDICATION.
--- NOTE | 2019-05-10 10:30 | NUR ---
IV STARTED TO RIGHT HAND X1 ATTEMPT. NO INFILTRATION NOTED. PT TOLERATED WELL.
--- NOTE | 2019-05-10 11:33 | NUR ---
PER DR VOSS, LEAVE CT OFF SUCTION.
--- NOTE | 2019-05-10 12:34 | NUR ---
DR GOULD AT THE PTS BEDSIDE. NO NEW ORDERS.
--- NOTE | 2019-05-10 13:10 | NUR ---
DR VOSS AT THE PTS BEDSIDE
--- NOTE | 2019-05-10 15:00 | NUR ---
REASSESSTMENT COMPLETED. SEE FLOW SHEET. WILL CONT POC.
--- NOTE | 2019-05-10 18:06 | NUR ---
EPISTAXIS NOTED WITH A LARGE CLOT NOTED FROM RIGHT NARE. BIPAP REMOVED. FACE CLEANED AND SMALL BLOODY OOZE NOTED FROM RIGHT NARE. DR STEVEN NOTIFIED. HOLD ELIQUIS UNTIL EPISTAXIS RESOLVES, AFRIN AND SALINE NARE SPRAY UNTIL EXPISTAXIS RESOLVES.
--- NOTE | 2019-05-10 19:00 | NUR ---
Received Pt from off going RN. Pt is laying in bed with eyes open. Shift assessment completed, see flowsheet for details. Pt has no further needs at this time. No s/s of distress noted. Will continue to monitor.
--- NOTE | 2019-05-10 21:00 | NUR ---
Pt is laying in bed at this time. Nose is still bleeding at this time. No needs voiced. Pt placed back on bipap after administering night meds. No s/s of distress noted. will continue to monitor.
--- NOTE | 2019-05-10 23:00 | NUR ---
Reassessment completed, see flowsheet for details. Pt is laying in bed on bipap with eyes closed. No needs voiced. No s/s of distress noted. Will continue to monitor.
[2019-05-11] VITALS (24 sets, daily range): BP systolic 109–148; BP diastolic 44–66
--- NOTE | 2019-05-11 01:00 | NUR ---
Pt is laying in bed on bipap with eyes closed. No needs voiced/noted. No s/s of distress noted. Will continue to monitor.
--- NOTE | 2019-05-11 03:00 | NUR ---
Reassessment completed, see flowsheet for details. Pt is laying in bed on the bipap with eyes closed. No needs voiced. No s/s of distress. Will continue to monitor.
--- NOTE | 2019-05-11 05:00 | NUR ---
Pt was given a complete chg bed bath. Pt still has some residual bleeding from the nose. Complete linen change done. Pt states she is feeling better after her bath. Pt requested water, provided. No futher needs voiced/noted. No s/s of distress. Will continue to monitor.
[2019-05-11 05:36] LABS: BASOPHILS 0.2 % (0-2); EOSINOPHILS 0.4 % (0-7); HEMATOCRIT 28.7 % (36.0-48.0); IMMATURE GRANULOCYTES 0.4 % (0-5); LYMPHOCYTES 30.2 % (15-50); MCH 27.3 pg (26.0-34.0); MCHC 31.4 g/dL (31.0-37.0); MEAN PLATELET VOLUME 10.9 fL (7.4-10.4); MONOCYTES 11.4 % (2-11); NEUTROPHILS 57.4 % (40-80)
[2019-05-11 05:42] LABS: PLATELET COUNT 173 10x3/uL (130-400); WBC 5.6 10x3/uL (4.8-10.8)
[2019-05-11 05:48] LABS: ALBUMIN 2.3 g/dL (3.4-5.0); BILIRUBIN - TOTAL 0.74 mg/dL (0.2-1.3); CALCIUM 8.2 mg/dL (8.5-10.1); CARBON DIOXIDE 34.2 mmol/L (21.0-32.0); CREATININE - SERUM 1.5 mg/dL (0.6-1.3); POTASSIUM - SERUM 3.2 mmol/L (3.5-5.1); PROTEIN - SERUM 6.2 g/dL (6.4-8.2)
--- NOTE | 2019-05-11 07:00 | NUR ---
REPORT RECEVIED FROM THE OFF GOING RN. SEE ASSESSMENT IN THE PTS FLOW SHEET. PT LYING IN BED WITH NO S/SX OF DISTRESS/DISCOMFORT NOTED. NO EPISTAXIS NOTED BUT WHENEVER THE PT WAS ASKED IF SHE HAS A NOSE BLEED, SHE STATED THAT IT WAS OCCASIONAL. DR STEVEN AWARE. FIRST DEGREE BBB NOTED ON THE MONITOR RATE 73. CRAKLES AND WHEEZING NOTED THROUGHOUT BOTH LUNGS. FC NOTED WITH CLEAR, YELLOW URINE. +3 EDEMA NOTED TO BLE. CALL LIGHT IN REACH. WILL CONT POC.
--- NOTE | 2019-05-11 09:30 | NUR ---
PT PLACED BACK ON BIPAP DUE TO INCREASED SOB. AFTER BIPAP, PT STATES SHE FELT BETTER. VSS. WILL CONT POC.
--- NOTE | 2019-05-11 11:20 | NUR ---
PT C/O LEFT HAND IV PAIN. IV FLUSHES WELL. NO REDDNESS BUT SWELLING PRESENT. IV DC'D WITH THE CATHETER TIP INTACT. WILL CONT POC.
--- NOTE | 2019-05-11 16:15 | NUR ---
REASSESSMENE COMPELTED SEE FLOW SHEET. VSS. CALL LIGHT IN REACH. JESSICA CONT POC.
--- NOTE | 2019-05-11 18:28 | NUR ---
VSS. PT DENIES PAIN AT THIS TIME. CALL LIGHT IN REACH. WILL CONT POC.
--- NOTE | 2019-05-11 20:45 | NUR ---
HS MEDS GIVEN, FRESH WATER PROVIDED. PT REPOSITIONED WITH PROMINENCES BRIDGED. VSS, DENIES PAIN. CALL LIGHT AND BEDSIDE TABLE WITHIN PT REACH. CPOC.
--- NOTE | 2019-05-11 21:30 | NUR ---
ATE 100% OF HS SNACK
--- NOTE | 2019-05-11 22:00 | NUR ---
COMPLETE LINEN CHANGE AND BATH PROVIDED.
--- NOTE | 2019-05-11 23:25 | NUR ---
REASSESSMENT COMPLETE, NO NEW CHANGES AT THIS TIME. BIPAP IN PLACE, SPO2 100 DENIES PAIN, VSS. CALL LIGHT AND BEDSIDE TABLE WITHIN PT REACH. CPOC.
[2019-05-12] VITALS (11 sets, daily range): BP systolic 118–159; BP diastolic 46–76
--- NOTE | 2019-05-12 01:30 | NUR ---
PT SLEEPING QUIETLY WITH BIPAP IN PLACE, VSS, NO S/S OF PAIN OR DISTRESS.
--- NOTE | 2019-05-12 05:30 | NUR ---
BIPAP OFF, TO 3L NC. JUICE TO BEDSIDE PER REQUEST. PT REPOSITIONED FOR COMFORT. VSS, NO C/O PAIN. DENIES FURTHER NEEDS. CALL LIGHT WITHIN PT REACH. CPOC.
[2019-05-12 07:20] LABS: ANION GAP 11.1 mmol/L (8-16); CALCIUM 8.2 mg/dL (8.5-10.1); CARBON DIOXIDE 35.9 mmol/L (21.0-32.0); PHOSPHOROUS 3.1 mg/dL (2.5-4.9)
[2019-05-12 07:22] LABS: CREATININE - SERUM 1.1 mg/dL (0.6-1.3)
--- NOTE | 2019-05-12 07:25 | NUR ---
REPORT RECIEVED. PATIENT SITTING IN BED WITH HOB AT 45. 3L NC AT THIS TIME. DENIES PAIN AND NEEDS DURING THIS TIME. NO ACUTE DISTRESS. PATIENT IS LABORED BREATHING. EDUCATED ON USING BIPAP Q2HRS TO PREVENT USE OF ACCESSORY MUSCLES. SEE ASSESSMENT. SEE ADL'S. PATIENT ALERT AND ORIENTED. WATER PROVIDED. WILL CONTINUE TO MONITOR.
--- NOTE | 2019-05-12 09:18 | NUR ---
called pharmacy to tell them there is no doxycycline in the pyxis. stated they would bring them up.
--- NOTE | 2019-05-12 09:34 | NUR ---
morning meds given per jul. patient sleeping. on bipap. patient ate breakfast. no acute distress during this time. light turned off and heat turned on per her request.
--- NOTE | 2019-05-12 10:03 | NUR ---
spoke with pharmacy again to check on status of doxycycline
--- NOTE | 2019-05-12 13:13 | NUR ---
physical therapy at bedside. ambulated patient to chair. spo2 88%. no acute distress. chest tube stable. free of kinks. at bedside. will continue to monitor
--- NOTE | 2019-05-12 13:14 | NUR ---
nasal spray done. potassium given. bedside tray given. with all belongings within reach. patient on nasal cannula 3 l. no acute distress. will continue to monitor
--- NOTE | 2019-05-12 13:25 | NUR ---
Nutrition Follow-up: Diet: Cardiac Diabetic PO intake: 68% avg x 5 meals Wt: 277# (05/12); 285.6# (05/09) *noted I/O (-676 on 05/11; -1837 on 05/10) Last BM: 05/11 Labs noted: K+ 3.0, GFR 53, Glu 135, Ca 8.2 Meds noted: Lasix, KDur, Humulin, Lantus -Continue current diet as tolerated. -Offer Glucerna with meals. -RD following.
--- NOTE | 2019-05-12 14:03 | NUR ---
awaiting dr bee approval to transfer patient out
--- NOTE | 2019-05-12 17:22 | NUR ---
gave report to te torres.
--- NOTE | 2019-05-12 18:03 | NUR ---
RECIEVED FROM ICU. ALERT AND ORIENTED.V/S STABLE TELEMERTY SHOWS SR WITH A 1ST DEGREE BLOCK. O2 AT 4 L/M PER NC. SL TO RIGHT HAND. DAS CATH PATEN TO GRAVITY BAG. SR UP WITH CALL LIGHT IN REACH. WILL MONITOR
--- NOTE | 2019-05-12 19:31 | NUR ---
EVENING ROUNDS COMPLETED. VSS, AAOX3, NO S/S OF DISTRESS. PT APPEARS LETHARGIC. PT SITTING AT THE EDGE OF THE BED AT THIS TIME. PT DENIES ANY NEED FOR PAIN AT THIS TIME. RR EVEN AND UNLABORED. MINIMAL NOSE BLEED NOTED. O2 @ 2L, DAS INTACT. MARY CRACKERS PROVIDED PER PT REQUEST, PT DENIES ANY FURTHER NEEDS AT THIS TIME. WILL CPOC. CL WITHIN REACH.
[2019-05-13 04:00] VITALS: BP 136/54
[2019-05-13 04:30] VITALS: BP 118/68
[2019-05-13 05:47] LABS: CALCIUM 8.7 mg/dL (8.5-10.1); CREATININE - SERUM 0.9 mg/dL (0.6-1.3); MAGNESIUM - SERUM 1.9 mg/dL (1.8-2.4); PHOSPHOROUS 2.6 mg/dL (2.5-4.9); POTASSIUM - SERUM 3.3 mmol/L (3.5-5.1)
[2019-05-13 06:17] LABS: ANION GAP 7.3 mmol/L (8-16)
--- NOTE | 2019-05-13 07:10 | NUR ---
REPORT RECEVED FROM MANAGER RESEARCH AND PATIENT CARE ASUMED. PATIENT SITTING UP ON BS AWAKE, ALERT AND ORIENTED X 4. PATIENT IS STABLE AND VSS. PATIENT DENIES ANY NEEDS OR PAIN. WILL CONTINUE WITH PLAN OF CARE . CALL LIGHT IN REACH BED IN LOW POSITION .
--- NOTE | 2019-05-13 10:36 | NUR ---
PATIENT STILL SITITNG UP BS. PATIENT IS UMCHANGED. WILL CONTINUE TO MONITOR. CALL LIGHT IN REACH.
[2019-05-13 12:43] VITALS: BP 141/68
--- NOTE | 2019-05-13 14:00 | NUR ---
PATIENT IS STABLE AND VSS. PATIENT DENIES ANY NEEDS OR PAIN. PATIENT WOULD LIKE TO SLEEP AND REQUESTS BIPAP ASST. ASST PATIENT. SR UP X 2 BED IN LOW POSITION AND CALL LIGHT IN REACH.
[2019-05-13 16:13] VITALS: BP 153/94
--- NOTE | 2019-05-13 19:15 | NUR ---
RECEIVED REPORT, WILL ASSUME CARE OF PT, ASKING FOR LUIS MONGE (PROVIDED). BED IS LOW, SRX2, CALL LIGHT IN REACH, WILL CONTINUE PLAN OF CARE
[2019-05-13 20:30] VITALS: BP 127/54
--- NOTE | 2019-05-13 21:14 | NUR ---
ASSISTED INTERNAL AUDIT SENIOR MANAGER WITH CLEANING UP PT AND LINEN CHANGE
[2019-05-14 00:30] VITALS: BP 120/58
--- NOTE | 2019-05-14 05:13 | NUR ---
I have reviewed this patient and I concur with the Shift Assessment completed by the Licensed Practical Nurse today this shift.
--- NOTE | 2019-05-14 07:11 | NUR ---
PT SITTING ON SIDE OF BED. PT COMPLAINING THAT IT IS COLD IN HER ROOM. TURNED PT'S HEAT UP AND GOT HER A WARM BLANKET. SHE THANKED ME AND STATED THAT IS MUCH BETTER. PT HAS NO FURTHER NEEDS AT THIS TIME. BED LOW. CL IN REACH.
--- NOTE | 2019-05-14 10:15 | NUR ---
I have reviewed this patient and I concur with the Shift Assessment completed by the Licensed Practical Nurse today this shift.
[2019-05-14 11:15] VITALS: BP 127/58
--- NOTE | 2019-05-14 13:20 | NUR ---
PT ASSISTED TO THE BSC AND HAD A BM AND ASSISTED BACK INTO BED BY GARDEN TRACTOR MECHANIC.
[2019-05-14 16:06] VITALS: BP 129/79
--- NOTE | 2019-05-14 19:57 | NUR ---
REPORT AND INITIAL ROUNDS COMPLETED. NO DISTRESS. SB/59 PER TELEMETRY. O2 @ 2L/NC. PIPPA PATENT PER MD ORDERS FOR ACCURATE INTAKE AND OUTPUT. FALL PRECAUTIONS IN PLACE. CPOC. CALL LIGHT IN REACH.
[2019-05-14 20:30] VITALS: BP 133/69
[2019-05-15 00:30] VITALS: BP 122/55
[2019-05-15 04:30] VITALS: BP 146/71
[2019-05-15 06:43] LABS: ANION GAP 6.1 mmol/L (8-16); CALCIUM 8.7 mg/dL (8.5-10.1); CARBON DIOXIDE 39.2 mmol/L (21.0-32.0); CREATININE - SERUM 0.9 mg/dL (0.6-1.3); POTASSIUM - SERUM 4.3 mmol/L (3.5-5.1)
--- NOTE | 2019-05-15 07:29 | NUR ---
PT LYING IN BED. WATCHING TV. WEARING BIPAP. PT STATES SHE HAS NO FURTHER NEEDS AT THIS TIME. BED LOW. CL IN REACH.
--- NOTE | 2019-05-15 07:30 | NUR ---
PHARMACY NEVER BROUGHT NYSTATIN POWDER AFTER IT WAS ORDERED YESTERDAY. CALLED AND SPOKE WITH MONO IN PHARMACY AND HE STATES HE WILL GET SOME AND BRING IT UP HERE(MED 2). I VERBALIZED UNDERSTANDING.
[2019-05-15 07:59] VITALS: BP 131/59
--- NOTE | 2019-05-15 08:02 | NUR ---
I have reviewed this patient and I concur with the Shift Assessment completed by the Licensed Practical Nurse today this shift.
[2019-05-15 12:13] VITALS: BP 143/59
[2019-05-15 17:09] VITALS: BP 137/62
--- NOTE | 2019-05-15 19:15 | NUR ---
RECEIVED REPORT, WILL ASSUME CARE OF PT, SITTING ON SIDE OF BED, DENIES ANY NEEDS AT THIS TIME, BED IS LOW, SRX2, CALL LIGHT IN REACH, WILL CONTINUE PLAN OF CARE
[2019-05-15 20:00] VITALS: BP 118/65
[2019-05-16] VITALS: BP 145/58
[2019-05-16 04:00] VITALS: BP 119/60
--- NOTE | 2019-05-16 04:28 | NUR ---
I have reviewed this patient and I concur with the Shift Assessment completed by the Licensed Practical Nurse today this shift.
[2019-05-16 05:45] LABS: BASOPHILS 0.2 % (0-2); EOSINOPHILS 4.2 % (0-7); HEMATOCRIT 26.5 % (36.0-48.0); IMMATURE GRANULOCYTES 0.4 % (0-5); LYMPHOCYTES 37.5 % (15-50); MCHC 30.2 g/dL (31.0-37.0); MCV 89.5 fL (80.0-100.0); MONOCYTES 14.1 % (2-11); NEUTROPHILS 43.6 % (40-80); PLATELET COUNT 184 10x3/uL (130-400); RBC 2.96 10x6/uL (4.00-5.40); RDW 17.5 % (11.5-14.5); WBC 4.5 10x3/uL (4.8-10.8)
[2019-05-16 06:12] LABS: CALC OSMOLALITY 285 mosm/kg (275-300); CALCIUM 8.7 mg/dL (8.5-10.1); CARBON DIOXIDE 39.2 mmol/L (21.0-32.0); CHLORIDE - SERUM 104 mmol/L (98-107); CREATININE - SERUM 0.8 mg/dL (0.6-1.3); POTASSIUM - SERUM 4.5 mmol/L (3.5-5.1); SODIUM 143 mmol/L (136-145); UREA NITROGEN 17 mg/dL (7-18); eGFR NON AFRICAN AMERICAN 76 mL/min (90-120)
[2019-05-16 06:13] LABS: GLUCOSE 72 mg/dL (74-106)
--- NOTE | 2019-05-16 07:33 | NUR ---
ALERT AND ORIENTED. UP ON SIDE OF BED. 02 AT 2 L/M PER NC. RIGHT HAND SL. TELEMERTY SHOWS SR 64. DENIES ANY NEEDS. SR UP WITH CALL LIGHT IN REACH. WILL MONITOR
[2019-05-16 08:00] VITALS: BP 119/49
--- NOTE | 2019-05-16 11:13 | OP ---
PATIENT NAME: BERNARD CHOU MEDICAL RECORD: [id number] :55 LOCATION:D.M2 D.2124 ADMISSION DATE:05/05/19 SURGEON: BEAN GOULD MD DATE OF OPERATION: 05/09/2019 PROCEDURES: 1. PTCA stent LAD diagonal. 2. IFR left circumflex. 3. Left heart catheterization. 4. Selective coronary angiography. 5. Left ventriculogram. INDICATION: Unstable angina and coronary artery disease. PROCEDURE IN DETAIL: After informed consent was obtained and after a detailed description of risks, benefits as well as alternative therapies, the patient elected to proceed with angiogram and angioplasty. The right femoral area was prepped and draped in normal sterile fashion. Right femoral artery was cannulated via modified Seldinger technique with placement of 6-Kazakh sheath. All catheters exchanged through this sheath. FINDINGS: Left ventriculogram was performed in standard 30-degree PEREZ view, reveals global hypokinesis throughout all segments. Overall ejection fraction 35%. SELECTIVE CORONARY ANGIOGRAPHY: 1. Left main is with no significant angiographic disease. 2. Left anterior descending has previously placed stents, these are widely patent; however, the diagonal has 90% stenosis at its ostium. 3. Left circumflex has previously placed stents. There is a questionable area of stenosis in the mid vessel; however, IFR is normal. 4. Right coronary has mild irregularities, but no flow-limiting stenosis. PTCA STENT OF THE LAD DIAGONAL: The stent used was a 2.5 x 12 mm Integrity. Result was 0% residual stenosis. OVERALL IMPRESSION: Successful percutaneous transluminal angioplasty stent of the LAD diagonal going from 90% initial stenosis to 0% residual. TRANSINT:[id number] Voice Confirmation ID: [id number] DOCUMENT ID: [id number] BEAN GOULD MD at 1113 CC: [id number] DICTATION DATE: 05/09/19 1040 SUPERCALENDER OPERATOR HELPER: 05/09/19 1552 ADM IN [place] [id number] [place] [address]
--- NOTE | 2019-05-16 11:13 | PN ---
PATIENT:BERNARD CHOU MEDICAL RECORD: [id number] LOCATION:D. D.212 ADMISSION DATE: 05/05/19 PROGRESS NOTE DATE OF SERVICE: 05/08/2019 DIAGNOSES: 1. Shortness of breath, dyspnea on exertion. 2. Angina. 3. Coronary artery disease. 4. Previous cardiac stent. 5. Atrial fibrillation. HOSPITAL COURSE: Ms. Chou continues to be in atrial fibrillation. Her rate is better controlled with the addition of the sotalol; however, shortness of breath continued. She has been having chest pain as well a chest pressure and an aching, it is worse today. She has been having this all along. We have not centered our attention on the angina. It is just like her previous angina. She has a history of coronary artery disease. Last cardiac stent was in September. At this time, due to the continued atrial fibrillation and the very symptomatic atrial fibrillation with extreme shortness of breath we will proceed with ANNALISA cardioversion tomorrow as long as there is no left atrial clot, but also we will perform left heart catheterization secondary to the ongoing angina and history of multivessel PTCA and stent in the past. TRANSINT:[id number] Voice Confirmation ID: [id number] DOCUMENT ID: [id number] BEAN GOULD MD at 1113 CC: [id number] DICTATION DATE: 05/08/19 1145 ELECTRIC STOVE MECHANIC: 05/08/195 ADM IN [place] [id number] [place] [address]
--- NOTE | 2019-05-16 11:13 | OP ---
PATIENT NAME: BERNARD CHOU MEDICAL RECORD: [id number] :55 LOCATION:D.M2 D.2124 ADMISSION DATE:05/05/19 SURGEON: BEAN GOULD MD DATE OF OPERATION: 05/09/2019 PROCEDURE: 1. Transesophageal echo. 2. Cardioversion INDICATION: Atrial fibrillation. IV conscious sedation was per anesthesia. Continuous heart rate, O2 saturation, blood pressure monitoring all undertaken, all of which remains stable. FINDINGS: 1. Left ventricular chamber size is mildly dilated. Left ventricular systolic function is moderately depressed at 35% to 40%. 2. Left atrium, right atrium, and right ventricle chamber sizes are moderately dilated. 3. Valvular structures have normal structure and motion. 4. Doppler interrogation reveals voto-rr-rfazcktr mitral regurgitation, qqbt-io-eyrjboec tricuspid regurgitation, no other valvular insufficiency or stenosis. 5. No evidence of pericardial effusion or left ventricular thrombus. 6. No left atrial thrombus is present. DC CARDIOVERSION: She received 1 shock at 275 joules restoring sinus rhythm. OVERALL IMPRESSION: Successful DC cardioversion from atrial fibrillation to sinus rhythm. TRANSINT:[id number] Voice Confirmation ID: [id number] DOCUMENT ID: [id number] BEAN GOULD MD at 1113 CC: ERIC HAMEED MD [id number] DICTATION DATE: 05/09/19 1104 DIAMOND CLEANER: 05/09/19 1418 ADM IN [facility] [address] [place] [address]
[2019-05-16 12:00] VITALS: BP 127/80
[2019-05-16 16:00] VITALS: BP 125/55
[2019-05-16 20:41] VITALS: BP 137/58
--- NOTE | 2019-05-16 21:20 | NUR ---
SPOKE WITH PHARMACY, INFORMED THEM THAT PT NEEDS A LANTUS PIN BEFORE THEY GO HOME FOR THE NIGHT.
[2019-05-17 00:35] VITALS: BP 123/58
--- NOTE | 2019-05-17 02:45 | NUR ---
PT ASKED FOR BS TO BED CHECKED, BS 54, SNACK PROVIDED.
[2019-05-17 04:00] VITALS: BP 122/57
--- NOTE | 2019-05-17 07:16 | NUR ---
PT IN CHAIR SLEEPING.NO NEEDS NOTED. 02 AT 1.5 L/M PER NC. TELEMERTY SHOWS SB AT 55. YESI TO LOWER LEGS. DAS CATH PATENT TO GRAVITY BAG. CALL LIGHT IN REACH
[2019-05-17 10:33] VITALS: BP 126/57
--- NOTE | 2019-05-17 11:23 | NUR ---
I have reviewed this patient and I concur with the Shift Assessment completed by the Licensed Practical Nurse today this shift.
--- NOTE | 2019-05-17 13:38 | NUR ---
Nutrition Follow-up: Eating well. Denies N/V/C/D. Diet: Diabetic PO intake: 100% Wt: 276# (05/17); 277# (05/12) Last BM: 05/16 Labs noted: Glu 202 Meds noted: Lasix, Humulin, Lantus -Continue current diet as tolerated. -Monitor wt; noted daily wts ordered. -RD following.
[2019-05-17 15:12] VITALS: BP 129/55; BP 140/95
--- NOTE | 2019-05-17 15:24 | NUR ---
OT NOTE: PT DOING BETTER AND REPORTS THAT SHE IS FEELING MUCH BETTER; ABLE TO KAUSHAL B SHOES WITH SET UP; SIMPLE GROOMING AND UPPER BODY ADLS WITH SET UP; ABLE TO AMB IN ROOM WITH WALKER AND CGA; SIT TO STAND AND TRANSFERS WITH MIN ASSIST AND USE OF WALKER. ALPHONSE CARRASQUILLO, OTR/L [phone]
--- NOTE | 2019-05-17 16:46 | NUR ---
OT NOTE: PT UPRIGHT IN CHAIR . PT COMPLETED SIT TO STAND WITH SBA. PT COMPLETED ADL MOB WITH CGA . PT COMPLETED HAIR GROOMING WITH SET UP CHAIR LEVEL. PT COMPLETED UE AROM AXS. PT EXHIBITED INCREASED FUNCTIONAL INDEPENDENCE. [phone] THANK YOU, GEORGE HACKETT
--- NOTE | 2019-05-17 16:48 | MORECARE ---
CASE MANAGEMENT DISCHARGE SUMMARY PATIENT: BERNARD CHOU UNIT: [id number] ADM DATE: 05/05/19 AGE: 64 : 55 SEX: F ROOM/BED: D.6104 AUTHOR: MELONIEDOC PHYSICIAN: REFERRING PHYSICIAN: ERIC HAMEED MD DATE OF SERVICE: 05/17/19 Discharge Plan Patient Name: BERNARD CHOU Facility: [facility]:[place] : 1955 Planned Disposition: Inpatient Rehab Anticipated Discharge Date: 05/18/19 Discharge Date: Expected LOS: 13 Initial Reviewer: [email or web address] Initial Review Date: 05/05/2019 Generated: 05/17/19 5:47 pm DCP- Discharge Planning Updated by [email or web address]: Sharon Stout on 05/05/19 5:[address] DC PLAN: Return home with her . ANTICIPATED DC NEEDS: Denied known DC needs. Meals on wheels info given. CM met with patient to complete initial dc planning assessment. CM educated patient on the CM role and verbal consent given by patient to complete assessment. CM verified patient's address, phone number, and emergency contact phone numbers. Patient lives at her brother's house. She reports she is able to care for herself. At discharge patient plans to return to her brother's house and feels this is a safe discharge. CM discussed availability of home health, rehab services, and medical equipment. Patient denied known discharge needs at this time. Transportation provider at discharge will be her ex . CM will continue to follow and will assist as needed with dc plans/needs. Sharon Stout RN, [facility] DCPIA - Discharge Planning Initial Assessment Updated by [email or web address]: Sharon Stout on 05/05/19 6:02 pm * Is the patient Alert and Oriented? Yes * How many steps to enter\exit or inside your home? * PCP Dr. Hameed * Pharmacy [facility] on [address] by [address]. * Preadmission Environment Home with Family * ADLs Independent * Equipment BIPAP Cane Oxygen Rolling Walker * Other Equipment O2 with portability. Serbian Victor Patient is DME provider. * List name and contact numbers for known caregivers / representatives who currently or will assist patient after discharge: Kodi Chou [facility] - [phone] * Community resources currently utilized None * Additional services required to return to the preadmission environment? No * Can the patient safely return to the preadmission environment? Yes * Has this patient been hospitalized within the prior 30 days at any hospital? No Coverage Notice Reviewer: [email or web address] Mercedes Notice Issued Date-Time: 05/17/2019 9:05 Notice Type: Patient Choice Letter Notice Delivered To: Patient Relationship to Patient: Clinical Trial Data Manager Name: Delivery Method: HAND - Hand Delivered Yael Days: Prior Verbal Notification: Recipient Understood Notice: Yes Recipient Signature: Yes Med Rec Note Co-signed by Attending: Coverage Notice Comment: [facility] Reviewer: [email or web address] Mercedes Notice Issued Date-Time: 05/17/2019 9:05 Notice Type: IM Discharge Notice Notice Delivered To: Patient Relationship to Patient: Clinical Trial Data Manager Name: Delivery Method: HAND - Hand Delivered Yael Days: Prior Verbal Notification: Recipient Understood Notice: Yes Recipient Signature: Yes Med Rec Note Co-signed by Attending: Coverage Notice Comment: Last DP export: 05/05/19 5:10 Patient Name: BERNARD CHOU Page [id number] at 1648 All edits/amendments must be made on the electronic document DICTATION DATE: 05/17/191646 BLOOD DONOR UNIT ASSISTANT: MAIRA 05/17/191646 RPT#: [id number] DC DATE: STATUS: ADM IN [facility] [address] [place] [address] END OF REPORT
--- NOTE | 2019-05-17 18:31 | NUR ---
PIPPA GODFREY REMOVED. NO PROBLEMS.
[2019-05-17 20:00] VITALS: BP 120/46
[2019-05-18] VITALS (7 sets, daily range): BP systolic 105–137; BP diastolic 52–63
--- NOTE | 2019-05-18 00:47 | NUR ---
CALLED TO ROOM, PT ASKED FOR BS TO BE CHECKED. 208 RESULTED.
--- NOTE | 2019-05-18 02:14 | NUR ---
PT UP IN CHAIR, RESTING WITH EYES CLOSED, RESPERATONS EVEN, NO S/S DISTRESS NOTED.
--- NOTE | 2019-05-18 02:38 | NUR ---
I have reviewed this patient and I concur with the Shift Assessment completed by the Licensed Practical Nurse today this shift.
[2019-05-18 07:37] LABS: CALCIUM 9.5 mg/dL (8.5-10.1)
--- NOTE | 2019-05-18 07:37 | NUR ---
REPORT RECEIVED. WILL CONTINUE WITH POC. PT CURRENTLY SITTING UP IN CHAIR. CALL LIGHT W/I REACH. RR EVEN AND UNLABORED ON 1.5L NC. NO PIV NOTED. NO S/S OF DISTRESS NOTED. PT DENIES ANY NEEDS. WILL CTM.
--- NOTE | 2019-05-18 09:47 | NUR ---
Rehab Note- Acute Inpatient Rehab prescreen order received. The patient has [facility] insurance and will require a PreAuth prior to an acute inpatient rehab stay. PreAuth has been initiated, will await determination for auth from insurance at this time. THank you for this referral! Vicky Morgan RN Clinical Liaison, [facility] Rehab
[2019-05-18] MEDS ORDERED: PLAVIX75 MG PO (13:24)
[2019-05-18] MEDS ORDERED: ALDACTONE25 MG PO (13:25)
[2019-05-18] MEDS ORDERED: CARDIZEM CD180 MG PO (13:25)
[2019-05-18] MEDS ORDERED: BETAPACE 120 M120 MG PO (13:26)
[2019-05-18] MEDS ORDERED: FUROSEMIDE20 MG PO (13:29)
--- NOTE | 2019-05-18 15:07 | NUR ---
I have reviewed this patient and I concur with the Shift Assessment completed by the Licensed Practical Nurse today this shift.
--- NOTE | 2019-05-18 15:36 | NUR ---
OT NOTE: PT COMPLETED ADL MOB WITH RW REQUIRED SBA/CGA. PT COMPLETED TOILETING WITH SPV. PT COMPLETED HYGIENE WITH SPV. PT COMPLETED BUE AROM EXS NOT TO EXCEED 90 DEGREES. [phone] THANK YOU, GEORGE HACKETT
--- NOTE | 2019-05-19 06:21 | NUR ---
I have reviewed this patient and I concur with the Shift Assessment completed by the Licensed Practical Nurse today this shift.
--- NOTE | 2019-05-19 08:40 | NUR ---
(LATE ENTRY FOR 05/18/19) OT NOTE: PERFORMED WELL TODAY. AMB TO BATHROOM WITH CGA; TOILETING WITH CGA; GROOMING AT SINK WITH SBA. AMB INTO HALLWAY TO IMPROVE FUNCTIONAL ENDURANCE. BED MOB WITH MIN ASSIST. ALPHONSE CARRASQUILLO, OTR/L
[2019-05-19 10:55] VITALS: BP 130/55
--- NOTE | 2019-05-19 13:17 | NUR ---
ASSESSMENT DONE. DENIES NEEDS
[2019-05-19 14:09] VITALS: BP 105/47
--- NOTE | 2019-05-19 15:05 | NUR ---
I have reviewed this patient and I concur with the Shift Assessment completed by the Licensed Practical Nurse today this shift.
--- NOTE | 2019-05-19 15:32 | NUR ---
OT NOTE: PT COMPLETED ADL MOB WITH CGA. PT COMPLETED SIT TO STAND WITH CGA. PT COMPLETED HYGIENE WITH SETUP. PT COMPLETED UE AROM AXS. [phone] STU ORTIZ COTA
[2019-05-19 17:24] VITALS: BP 119/55
[2019-05-19 20:30] VITALS: BP 125/51
[2019-05-20] VITALS: BP 125/58
[2019-05-20 04:30] VITALS: BP 118/83
--- NOTE | 2019-05-20 05:11 | NUR ---
I have reviewed this patient and I concur with the Shift Assessment completed by the Licensed Practical Nurse today this shift.
--- NOTE | 2019-05-20 08:06 | NUR ---
ASSESSMENT DONE. DENIES NEEDS
[2019-05-20 08:48] VITALS: BP 123/59
--- NOTE | 2019-05-20 09:22 | NUR ---
I have reviewed this patient and I concur with the Shift Assessment completed by the Licensed Practical Nurse today this shift.
--- NOTE | 2019-05-20 11:42 | NUR ---
OT NOTE: PT EXPRESSED CONCERNS WITH DIET, LE EDEMA, AND UNIVERSAL PRECAUTIONS BY PHP MAGENTO DEVELOPER. VAZQUEZ RELAYED PT CONCERNS TO FISHING LURE ASSEMBLER. PT COMPLETED BED MOB TASKS WITH MOD I. PT COMPLETED BUE AROM EXS AT EOB. [phone] THANK YOU, GEORGE HACKETT
[2019-05-20 12:26] VITALS: BP 113/47
--- NOTE | 2019-05-20 14:23 | NUR ---
Rehab Note- Call received from Caroline with [facility] that the patient had been denied an acute inpatient rehab stay per their medical artist. A peer to peer can be set up by contacting Caroline @ [phone] by Thursday05/23/2019 @ 0781. Spoke with TOMY Swan. Thank you for this referral! Adrianne Morgan RN Clinical Liaison, [facility] Rehab
--- NOTE | 2019-05-20 15:53 | MORECARE ---
CASE MANAGEMENT DISCHARGE SUMMARY PATIENT: BERNARD CHOU UNIT: [id number] ADM DATE: 05/05/19 AGE: 64 : 55 SEX: F ROOM/BED: D.9132 AUTHOR: MELONIEDOC PHYSICIAN: REFERRING PHYSICIAN: ERIC HAMEED MD DATE OF SERVICE: 05/20/19 Discharge Plan Patient Name: BERNARD CHOU Facility: [facility]:[place] : 1955 Planned Disposition: Fdc Facility Anticipated Discharge Date: 05/20/19 Discharge Date: Expected LOS: 15 Initial Reviewer: [email or web address] Initial Review Date: 05/05/2019 Generated: 05/20/19 4:53 pm DCP- Discharge Planning Updated by [email or web address]: Tyler Mercedes on 05/17/19 3:[address] Patient Name: BERNARD CHOU Encounter No: [id number] : 1955 Primary Insurance: [facility] MEDICARE SOLUTIONS Anticipated DC Date: 05-18-2019 Planned Disposition: Inpatient Rehab External Planned Provider: [facility] DCP follow-up note: CM REVIEWED CHART, THERAPY NOTES RECOMMENDATION FOR INPATIENT REHAB PRESCREENING. CM MET WITH PT IN ROOM TO DISCUSS DISCHARGE PLANNING AND NEEDS. CM DISCUSSED AVAILABILITY OF HOME HEALTH, REHAB SERVICES AND MEDICAL EQUIPMENT. PT KNOWS SHE NEEDS REHAB WITH PLAN TO GO HOME AFTER REHAB. CM DISCUSSED REHAB OPTIONS, LOCATIONS AND PROVIDERS. PT WOULD LIKE FOR REHAB AT [facility] INPATIENT RE[facility]. CHOICE SIGNED. IMPORTANT MESSAGE FROM MEDICARE PROVIDED AND EXPLAINED. ORDER FOR INPATIENT REHAB PRESCREENING OBTAINED. PT PLANS TO DISCHARGE TO INPATIENT REHAB AT [place]. CM WAITING MEDICAL STABILITY WELL INPATIENT REHAB PRESCREENING RESULTS. Dental Office Manager: Tyler Mercedes DCP- Discharge Planning Updated by [email or web address]: Sharon Stout on 05/05/19 5:[address] DC PLAN: Return home with her . ANTICIPATED DC NEEDS: Denied known DC needs. Meals on wheels info given. CM met with patient to complete initial dc planning assessment. CM educated patient on the CM role and verbal consent given by patient to complete assessment. CM verified patient's address, phone number, and emergency contact phone numbers. Patient lives at her brother's house. She reports she is able to care for herself. At discharge patient plans to return to her brother's house and feels this is a safe discharge. CM discussed availability of home health, rehab services, and medical equipment. Patient denied known discharge needs at this time. Transportation provider at discharge will be her ex . CM will continue to follow and will assist as needed with dc plans/needs. Sharon Stout RN, [facility] [place] [facility]CP[facility] - Discharge Planning Initial Assessment Updated by [email or web address]: Sharon Stout on 05/05/19 6:02 pm * Is the patient Alert and Oriented? Yes * How many steps to enter\exit or inside your home? * PCP Dr. Hameed * Pharmacy [facility] [address] by Cristofer sherwood. * Preadmission Environment Home with Family * ADLs Independent * Equipment BIPAP Cane Oxygen Rolling Walker * Other Equipment O2 with portability. [place] is DME provider. * List name and contact numbers for known caregivers / representatives who currently or will assist patient after discharge: Kodi Chou [phone] * Community resources currently utilized None * Additional services required to return to the preadmission environment? No * Can the patient safely return to the preadmission environment? Yes * Has this patient been hospitalized within the prior 30 days at any hospital? No External Providers [facility] [place] Next Contact Date: 05/20/2019 Service Request Date: Service Type: Resolution: Reviewer: Comments: Coverage Notice Reviewer: [id number] Joe Mercedes Notice Issued Date-Time: 05/17/2019 9:05 Notice Type: Patient Choice Letter Notice Delivered To: Patient Relationship to Patient: In Home Tutor Name: Delivery Method: HAND - Hand Delivered Yael Days: Prior Verbal Notification: Recipient Understood Notice: Yes Recipient Signature: Yes Med Rec Note Co-signed by Attending: Coverage Notice Comment: [facility] Reviewer: [email or web address] Joe Mercedes Notice Issued Date-Time: 05/17/2019 9:05 Notice Type: IM Discharge Notice Notice Delivered To: Patient Relationship to Patient: In Home Tutor Name: Delivery Method: HAND - Hand Delivered Yael Days: Prior Verbal Notification: Recipient Understood Notice: Yes Recipient Signature: Yes Med Rec Note Co-signed by Attending: Coverage Notice Comment: Last DP export: 05/17/19 3:48 pm Patient Name: BERNARD CHOU Page [id number] at 1553 All edits/amendments must be made on the electronic document DICTATION DATE: 05/20/191552 SERVICE DESK AGENT: MAIRA 05/20/191552 RPT#: [id number] DC DATE: STATUS: ADM IN [facility] [address] [place] [address] END OF REPORT
[2019-05-20 16:02] VITALS: BP 117/50
--- NOTE | 2019-05-20 16:20 | MORECARE ---
CASE MANAGEMENT DISCHARGE SUMMARY PATIENT: BERNARD CHOU UNIT: [id number] ADM DATE: 05/05/19 AGE: 64 : 55 SEX: F ROOM/BED: D.8744 AUTHOR: NISH WILHELM PHYSICIAN: REFERRING PHYSICIAN: ERIC HAMEED MD DATE OF SERVICE: 05/20/19 Discharge Plan Patient Name: BERNARD CHOU Facility: [facility]:[place] : 1955 Planned Disposition: Half-Way Facility Anticipated Discharge Date: 05/20/19 Discharge Date: Expected LOS: 15 Initial Reviewer: [email or web address] Initial Review Date: 05/05/2019 Generated: 05/20/19 5:20 pm Comments DCP- Discharge Planning Updated by [id number]: Tyler Mercedes on 05/20/19 3:[address] Patient Name: BERNARD CHOU Admission Status: ER Accout number: [id number] Admission Date: 05-05-2019 : 1955 Admission Diagnosis: Attending: ERIC HAMEED Current LOS: 15 Anticipated DC Date: 05-20-2019 Planned Disposition: Half-Way Facility Primary Insurance: [facility] MEDIC[employer] PLANNED EXTERNAL PROVIDER: [facility] Discharge Planning Comments: CM RECEIVED CALL FROM [facility]IO OF INPATIENT REHAB, INSURANCE DECLINED INPATIENT. CM SPOKE TO DR. HAMEED VIA PHONE IN OFFICE, HE IS IN AGREEMENT WITH [facility]. CM SPOKE TO PT WHO CALLED HER AUTHORIZATION SPECIALIST WHO RECOMMENDED PT TAKE THE [facility]. PT PROVIDED WITH LISTING OF PROVIDERS, CHOICE SIGNED FOR [facility]. IMPORTANT MESSAGE FROM MEDICARE PROVIDED AND EXPLAINED. CM NOTIFIED [facility] OF REFERRAL FOR [facility] AT [phone], INFORMED THAT PT IS READY TO DISCHARGE TO REHAB WHEN ACCEPTED AND APPROVED BY INSURANCE. CM FAXED REFERRAL TO [facility] VIA ERIK AT [phone]. CM WAIT[facility]. Funeral Prearrangement Counselor: Tyler Mercedes DCP- Discharge Planning Updated by [id number]: Tyler Mercedes on 05/17/19 3:[address] Patient Name: BERNARD CHOU Encounter No: [id number] : 1955 Primary Insurance: [facility] [employer] SOLUTIONS Anticipated DC Date: 05-18-2019 Planned Disposition: Inpatient Rehab External Planned Provider: INPATIENT REHAB DCP follow-up note: CM REVIEWED CHART, THERAPY NOTES RECOMMENDATION FOR INPATIENT REHAB PRESCREENING. CM MET WITH PT IN ROOM TO DISCUSS DISCHARGE PLANNING AND NEEDS. CM DISCUSSED AVAILABILITY OF HOME HEALTH, REHAB SERVICES AND MEDICAL EQUIPMENT. PT KNOWS SHE NEEDS REHAB WITH PLAN TO GO HOME AFTER REHAB. CM DISCUSSED REHAB OPTIONS, LOCATIONS AND PROVIDERS. PT WOULD LIKE FOR REHAB AT [facility]. CHOICE SIGNED. IMPORTANT MESSAGE FROM MEDICARE PROVIDED AND EXPLAINED. ORDER FOR INPATIENT REHAB PRESCREENING OBTAINED. PT PLANS TO DISCHARGE TO INPATIENT REHAB AT [place]. CM WAITING MEDICAL STABILITY WELL INPATIENT REHAB PRESCREENING RESULTS. Funeral Prearrangement Counselor: Tyler Mercedes DCP- Discharge Planning Updated by [id number]: Sharon Stout on 05/05/19 5:[address] DC PLAN: Return home with her . ANTICIPATED DC NEEDS: Denied known DC needs. Meals on wheels info given. CM met with patient to complete initial dc planning assessment. CM educated patient on the CM role and verbal consent given by patient to complete assessment. CM verified patient's address, phone number, and emergency contact phone numbers. Patient lives at her brother's house. She reports she is able to care for herself. At discharge patient plans to return to her brother's house and feels this is a safe discharge. CM discussed availability of home health, rehab services, and medical equipment. Patient denied known discharge needs at this time. Transportation provider at discharge will be her ex . CM will continue to follow and will assist as needed with dc plans/needs. Sharon Stout RN, [facility] DCPIA - Discharge Planning Initial Assessment Updated by [id number]: Sharon Stout on 05/05/19 6:02 pm * Is the patient Alert and Oriented? Yes * How many steps to enter\exit or inside your home? * PCP Dr. Hameed * Pharmacy [facility] [address] by [address]ofer sherwood. * Preadmission Environment Home with Family * ADLs Independent * Equipment BIPAP Cane Oxygen Rolling Walker * Other Equipment O2 with portability. [place] Patient is DME provider. * List name and contact numbers for known caregivers / representatives who currently or will assist patient after discharge: Kodi Chou - [phone] * Community resources currently utilized None * Additional services required to return to the preadmission environment? No * Can the patient safely return to the preadmission environment? Yes * Has this patient been hospitalized within the prior 30 days at any hospital? No Coverage Notice Reviewer: ELYSSA Mercedes Notice Issued Date-Time: 05/17/2019 9:05 Notice Type: Patient Choice Letter Notice Delivered To: Patient Relationship to Patient: Linesperson Name: Delivery Method: HAND - Hand Delivered Yael Days: Prior Verbal Notification: Recipient Understood Notice: Yes Recipient Signature: Yes Med Rec Note Co-signed by Attending: Coverage Notice Comment: [facility] RE[facility] Reviewer: ELYSSA Mercedes Notice Issued Date-Time: 05/17/2019 9:05 Notice Type: IM Discharge Notice Notice Delivered To: Patient Relationship to Patient: Linesperson Name: Delivery Method: HAND - Hand Delivered Yael Days: Prior Verbal Notification: Recipient Understood Notice: Yes Recipient Signature: Yes Med Rec Note Co-signed by Attending: Coverage Notice Comment: Reviewer: ELYSSA Mercedes Notice Issued Date-Time: 05/20/2019 15:00 Notice Type: IM Discharge Notice Notice Delivered To: Patient Relationship to Patient: Linesperson Name: Delivery Method: HAND - Hand Delivered Yael Days: Prior Verbal Notification: Recipient Understood Notice: Yes Recipient Signature: Yes Med Rec Note Co-signed by Attending: Coverage Notice Comment: Reviewer: ELYSSA Mercedes Notice Issued Date-Time: 05/20/2019 15:00 Notice Type: Patient Choice Letter Notice Delivered To: Patient Relationship to Patient: Linesperson Name: Delivery Method: HAND - Hand Delivered Yael Days: Prior Verbal Notification: Recipient Understood Notice: Yes Recipient Signature: Yes Med Rec Note Co-signed by Attending: Coverage Notice Comment: WAYNE HARMON Last DP export: 05/20/19 2:53 p Patient Name: BERNARD CHOU Page [id number] at 1620 All edits/amendments must be made on the electronic document DICTATION DATE: 05/20/191618 FOOD SERVICE MANAGER: MAIRA 05/20/19 161 RPT#: [id number] DC DATE: STATUS: ADM IN [address] [place] [address] END OF REPORT
--- NOTE | 2019-05-20 19:15 | NUR ---
RECEIVED REPORT, WILL ASSUME CARE OF PT, SITTING ON SIDE OF BED, SR-60, BED IS LOW, SRX2, CALL LIGHT IN REACH, WILL CONTINUE PLAN OF CARE
[2019-05-20 20:00] VITALS: BP 129/56
[2019-05-21] VITALS: BP 119/54
[2019-05-21 04:00] VITALS: BP 113/54
--- NOTE | 2019-05-21 05:12 | NUR ---
I have reviewed this patient and I concur with the Shift Assessment completed by the Licensed Practical Nurse today this shift.
--- NOTE | 2019-05-21 08:12 | NUR ---
ASSESSMENT COMPLETED. ALERT AND ORIENTED. TELEMERTY SHOWS SR. O2 AT 1.5 L/M PER NC. ABD FOLDS WITH MATTHEW AREAS, TREATED. DENIES ANY NEEDS. SR UP WITH CALL LIGHT IN REACH.
[2019-05-21 10:12] VITALS: BP 127/63
[2019-05-21 12:00] VITALS: BP 116/50
--- NOTE | 2019-05-21 16:40 | NUR ---
I have reviewed this patient and I concur with the Shift Assessment completed by the Licensed Practical Nurse today this shift.
--- NOTE | 2019-05-21 18:10 | NUR ---
UP TO BATHROOM. GAIT SLOW BUT STEADY. DENIES ANY NEEDS. SR UP WITH CALL LIGHT IN REACH. TELEMERTY SHOWS SR. WILL MONITOR
--- NOTE | 2019-05-21 19:18 | NUR ---
RECEIVED REPORT, WILL ASSUME CARE OF PT, DENIES ANY NEEDS AT THIS TIME, BED IS LOW, SRX2, CALL LIGHT IN REACH, WILL CONTINUE PLAN OF CARE
[2019-05-21 20:00] VITALS: BP 124/54
--- NOTE | 2019-05-21 21:15 | NUR ---
MANAGER PRIMARY CARE ASSISTED PT IN SHOWER/LINEN CHANGE
[2019-05-22] VITALS: BP 125/63
[2019-05-22 04:00] VITALS: BP 136/61
--- NOTE | 2019-05-22 04:20 | NUR ---
I have reviewed this patient and I concur with the Shift Assessment completed by the Licensed Practical Nurse today this shift.
--- NOTE | 2019-05-22 04:38 | NUR ---
REQUESTING BS TO BE CHECK-99
[2019-05-22 08:09] VITALS: BP 129/59
--- NOTE | 2019-05-22 08:20 | NUR ---
UP ON SIDE OF BED. ALERT AND ORIENTED.02 AT 3 L/M PER NC. TELEMERTY SHOWS SR 63. UP AB BRUNA TO BATHROOM. NO NEEDS VOICED. WILL MONITOR
[2019-05-22 12:18] VITALS: BP 122/50
[2019-05-22 17:44] VITALS: BP 111/59
--- NOTE | 2019-05-22 18:19 | NUR ---
UP IN BEDSIDE CHAIR. DENIES ANY NEEDS. TELEMERTY SHOWS SR. WILL MONITOR
--- NOTE | 2019-05-22 19:15 | NUR ---
RECEIVED REPORT, WILL ASSUME CARE OF PT, ASKING FOR ICEWATER-PROVIDED, DENIES ANY OTHER NEEDS AT THIS TIME, BED IS LOW, SRX2, CALL LIGHT IN REACH, WILL CONTINUE PLAN OF CARE
[2019-05-22 20:14] VITALS: BP 117/46
[2019-05-23] VITALS: BP 121/51
[2019-05-23 04:28] VITALS: BP 125/62
--- NOTE | 2019-05-23 05:13 | NUR ---
I have reviewed this patient and I concur with the Shift Assessment completed by the Licensed Practical Nurse today this shift.
--- NOTE | 2019-05-23 07:39 | NUR ---
ASSESSMENT DONE. DENIES NEEDS
--- NOTE | 2019-05-23 08:13 | NUR ---
I have reviewed this patient and I concur with the Shift Assessment completed by the Licensed Practical Nurse today this shift.
--- NOTE | 2019-05-23 09:31 | MORECARE ---
CASE MANAGEMENT DISCHARGE SUMMARY PATIENT: BERNARD CHOU UNIT: [id number] ADM DATE: 05/05/19 AGE: 64 : 55 SEX: F ROOM/BED: D.8624 AUTHOR: NISH WILHELM PHYSICIAN: REFERRING PHYSICIAN: ERIC HAMEED MD DATE OF SERVICE: 05/23/19 Discharge Plan Patient Name: BERNARD CHOU Facility: [facility]:[place] : 1955 Planned Disposition: Prison Facility Anticipated Discharge Date: 05/20/19 Discharge Date: Expected LOS: 15 Initial Reviewer: [id number] Initial Review Date: 05/05/2019 Generated: 05/23/19 10:30 am Comments DCP- Discharge Planning Updated by [email or web address]: Tyler Mercedes on 05/20/19 3:[address] Patient Name: BERNARD CHOU Admission Status: ER Accout number: [id number] Admission Date: 05-05-2019 : 1955 Admission Diagnosis: Attending: ERIC HAMEED Current LOS: 15 Anticipated DC Date: 05-20-2019 Planned Disposition: Prison Facility Primary Insurance: [facility] MEDICARE [employer] PLANNED EXTERNAL PROVIDER: [facility] Discharge Planning Comments: CM RECEIVED CALL FROM MIO OF INPATIENT REHAB, INSURANCE DECLINED INPATIENT. CM SPOKE TO DR. HAMEED VIA PHONE IN OFFICE, HE IS IN AGREEMENT WITH [facility]. CM SPOKE TO PT WHO CALLED HER CHIPPER MACHINE OPERATOR WHO RECOMMENDED PT TAKE THE [facility]. PT PROVIDED WITH LISTING OF PROVIDERS, [facility] S[facility]. IMPORTANT MESSAGE FROM MEDICARE PROVIDED AND EXPLAINED. CM NOTIFIED [facility] OF REFERRAL FOR [facility] AT [phone], INFORMED THAT PT IS READY TO DISCHARGE TO REHAB WHEN ACCEPTED AND APPROVED BY INSURANCE. CM FAXED REFERRAL TO [facility] VIA [facility] AT [phone]. CM [facility]. Umbrella Frame Maker: Tyler Mercedes DCP- Discharge Planning Updated by [id number]: Tyler Mercedes on 05/17/19 3:[address] Patient Name: BERNARD CHOU Encounter No: [id number] : 1955 Primary Insurance: [facility] MEDICARE SOLUTIONS Anticipated DC Date: 05-18-2019 Planned Disposition: Inpatient Rehab External Planned Provider: [facility] DCP follow-up note: CM REVIEWED CHART, THERAPY NOTES RECOMMENDATION FOR INPATIENT REHAB PRESCREENING. CM MET WITH PT IN ROOM TO DISCUSS DISCHARGE PLANNING AND NEEDS. CM DISCUSSED AVAILABILITY OF HOME HEALTH, REHAB SERVICES AND MEDICAL EQUIPMENT. PT KNOWS SHE NEEDS REHAB WITH PLAN TO GO HOME AFTER REHAB. CM DISCUSSED REHAB OPTIONS, LOCATIONS AND PROVIDERS. PT WOULD LIKE FOR REHAB AT [facility] INPAT[facility] REH[facility]. CHOICE SIGNED. IMPORTANT MESSAGE FROM MEDICARE PROVIDED AND EXPLAINED. ORDER FOR INPATIENT REHAB PRESCREENING OBTAINED. PT PLANS TO DISCHARGE TO [place]PATIENT REHAB AT [place]. CM WAITING MEDICAL STABILITY WELL INPATIENT REHAB PRESCREENING RESULTS. Umbrella Frame Maker: Tyler Mercedes DCP- Discharge Planning Updated by [id number]: Sharon Stout on 05/05/19 5:[address] DC PLAN: Return home with her . ANTICIPATED DC NEEDS: Denied known DC needs. Meals on wheels info given. CM met with patient to complete initial dc planning assessment. CM educated patient on the CM role and verbal consent given by patient to complete assessment. CM verified patient's address, phone number, and emergency contact phone numbers. Patient lives at her brother's house. She reports she is able to care for herself. At discharge patient plans to return to her brother's house and feels this is a safe discharge. CM discussed availability of home health, rehab services, and medical equipment. Patient denied known discharge needs at this time. Transportation provider at discharge will be her ex . CM will continue to follow and will assist as needed with dc plans/needs. Sharon Stout RN, [facility] DCPIA - Discharge Planning Initial Assessment Updated by [id number]: Sharon Stout on 05/05/19 6:02 pm * Is the patient Alert and Oriented? Yes * How many steps to enter\exit or inside your home? * PCP Dr. Hameed * Pharmacy [facility] [address] by [address]. * Preadmission Environment Home with Family * ADLs Independent * Equipment BIPAP Cane Oxygen Rolling Walker * Other Equipment O2 with portability. [place] [facility] Patient is DME provider. * List name and contact numbers for known caregivers / representatives who currently or will assist patient after discharge: Kodi Chou - [phone] * Community resources currently utilized None * Additional services required to return to the preadmission environment? No * Can the patient safely return to the preadmission environment? Yes * Has this patient been hospitalized within the prior 30 days at any hospital? No External Providers External Provider: [facility] Next Contact Date: 05/23/2019 Service Request Date: Service Type: Resolution: Reviewer: Comments: Coverage Notice Reviewer: ELYSSA Mercedes Notice Issued Date-Time: 05/17/2019 9:05 Notice Type: Patient Choice Letter Notice Delivered To: Patient Relationship to Patient: [employer] Officer [place] [facility] Name: Delivery Method: HAND - Hand Delivered Yael Days: Prior Verbal Notification: Recipient Understood Notice: Yes Recipient Signature: Yes Med Rec Note Co-signed by Attending: Coverage Notice Comment: [facility] Reviewer: ELYSSA Mercedes Notice Issued Date-Time: 05/17/2019 9:05 Notice Type: IM Discharge Notice Notice Delivered To: Patient Relationship to Patient: Correction Officer [place] [facility] Name: Delivery Method: HAND - Hand Delivered Yael Days: Prior Verbal Notification: Recipient Understood Notice: Yes Recipient Signature: Yes Med Rec Note Co-signed by Attending: Coverage Notice Comment: Reviewer: ELYSSA Mercedes Notice Issued Date-Time: 05/20/2019 15:00 Notice Type: IM Discharge Notice Notice Delivered To: Patient Relationship to Patient: Correction Officer [place] [facility] Name: Delivery Method: HAND - Hand Delivered Yael Days: Prior Verbal Notification: Recipient Understood Notice: Yes Recipient Signature: Yes Med Rec Note Co-signed by Attending: Coverage Notice Comment: Reviewer: ELYSSA Mercedes Notice Issued Date-Time: 05/20/2019 15:00 Notice Type: Patient Choice Letter Notice Delivered To: Patient Relationship to Patient: [employer] Officer [place] [facility] Name: Delivery Method: HAND - Hand Delivered Yael Days: Prior Verbal Notification: Recipient Understood Notice: Yes Recipient Signature: Yes Med Rec Note Co-signed by Attending: Coverage Notice Comment: WAYNE Rogers DP export: 05/20/19 3:20 p Patient Name: BERNARD CHOU Page [id number] at 0931 All edits/amendments must be made on the electronic document DICTATION DATE: 05/23/19929 ASSOCIATE DIRECTOR OF SALES: DM 05/23/19929 RPT#: [id number] DC DATE: STATUS: ADM IN [facility] [address] [place] [address] END OF REPORT
--- NOTE | 2019-05-23 09:44 | MORECARE ---
CASE MANAGEMENT DISCHARGE SUMMARY PATIENT: BERNARD CHOU UNIT: [id number] ADM DATE: 05/05/19 AGE: 64 : 55 SEX: F ROOM/BED: D.0486 AUTHOR: MELONIE,DOC PHYSICIAN: REFERRING PHYSICIAN: ERIC HAMEED MD DATE OF SERVICE: 05/23/19 Discharge Plan Patient Name: BERNARD CHOU Facility: [facility]:[place] : 1955 Planned Disposition: [facility]sp Facility Anticipated Discharge Date: 05/20/19 Discharge Date: Expected LOS: 15 Initial Reviewer: [email or web address] Initial Review Date: 05/05/2019 Generated: 05/23/19 10:43 am Comments DCP- Discharge Planning Updated by [email or web address]: Tyler Mercedes on 05/23/19 8:[address] Patient Name: BERNARD CHOU Encounter No: [id number] : 1955 Primary Insurance: [facility] MEDICARE SOLUTIONS Anticipated DC Date: 05-20-2019 Planned Disposition: Usp Facility External Planned Provider: [facility] Discharge Planning Comments: CM NOTIFIED [facility] OF REFERRAL UPDATE FOR [facility] AT [phone], INFORMED THAT PT IS READY TO DISCHARGE TO REHAB WHEN ACCEPTED AND APPROVED BY INSURANCE. CM FAXED REFERRAL UDP[facility] TO [facility]IA [facility] AT [phone]. CM SPOKE TO HUSSEIN OF [facility], NOTIFIED OF ORDER TO SEE IF PT QUALIFIES FOR TRILOGY MACHINE. CM FAXED REFERRAL TO [facility] AT [phone]. CM SPOKE TO PT IN ROOM, PROVIDED UPDATE ON PLACEMENT AND TRILOGY. PT SIGNED CONSENT FOR [facility] OR [facility], IMPORTANT MESSAGE FROM MEDICARE PROVIDED AND EXPLAINED. CM WAITING ADMISSION DETERMINATION FROM [facility] WELL INSURANCE DETERMINATION. [facility] PROCESSING ORDER FOR TRILOGY MACHINE DETERMINATION. Director Cloud Transformation: Tyler Mercedes DCP- Discharge Planning Updated by [email or web address]: Tyler Mercedes on 05/20/19 3:[address] Patient Name: BERNARD CHOU Admission Status: ER Accout number: [id number] Admission Date: 05-05-2019 : 1955 Admission Diagnosis: Attending: ERIC HAMEED Current LOS: 15 Anticipated DC Date: 05-20-2019 Planned Disposition: [facility]sp Facility Primary Insurance: [facility] MEDICARE SOLUTIONS PLANNED EXTERNAL PROVIDER: [facility] Discharge Planning Comments: CM RECEIVED CALL FROM [facility] OF INPATIENT REHAB, INSURANCE DECLINED INPATIENT. CM SPOKE TO DR. HAMEED VIA PHONE IN OFFICE, HE IS IN AGREEMENT WITH [facility]. CM SPOKE TO PT WHO CALLED HER BOOKKEEPING TEACHER WHO RECOMMENDED PT TAKE THE [facility]. PT PROVIDED WITH LISTING OF PROVIDERS, CHOICE SIGNED FOR [facility] AND [facility]. IMPORTANT MESSAGE FROM MEDICARE PROVIDED AND EXPLAINED. CM NOTIFIED [facility] OF REFERRAL FOR [facility] AT [phone], INFORMED THAT PT IS READY TO DISCHARGE TO REHAB WHEN ACCEPTED AND APPROVED BY INSURANCE. CM FAXED REFERRAL TO [facility]IA [facility] AT [phone]. CM WAITING ADMISSION DETERMINATION [facility]. Director Cloud Transformation: Tyler Mercedes DCP- Discharge Planning Updated by [email or web address]: Tyler Mercedes on 05/17/19 3:[address] Patient Name: BERNARD CHOU Encounter No: [id number] : 1955 Primary Insurance: [facility] MEDICARE SOLUTIONS Anticipated DC Date: 05-18-2019 Planned Disposition: Inpatient Rehab External Planned Provider: [facility] DCP follow-up note: CM REVIEWED CHART, THERAPY NOTES RECOMMENDATION FOR INPATIENT REHAB PRESCREENING. CM MET WITH PT IN ROOM TO DISCUSS DISCHARGE PLANNING AND NEEDS. CM DISCUSSED AVAILABILITY OF HOME HEALTH, REHAB SERVICES AND MEDICAL EQUIPMENT. PT KNOWS SHE NEEDS REHAB WITH PLAN TO GO HOME AFTER REHAB. CM DISCUSSED REHAB OPTIONS, LOCATIONS AND PROVIDERS. PT WOULD LIKE FOR REHAB AT [facility] INPATIENT REHAB. CHOICE SIGNED. IMPORTANT MESSAGE FROM MEDICARE PROVIDED AND EXPLAINED. ORDER FOR INPATIENT REHAB PRESCREENING OBTAINED. PT PLANS TO DISCHARGE TO INPATIENT REHAB AT [place]. CM WAITING MEDICAL STABILITY WELL INPATIENT REHAB PRESCREENING RESULTS. Director Cloud Transformation: Tyler Mercedes DCP- Discharge Planning Updated by [id number]: Sharon Stout on 05/05/19 5:[address] DC PLAN: Return home with her . ANTICIPATED DC NEEDS: Denied known DC needs. Meals on wheels info given. CM met with patient to complete initial dc planning assessment. CM educated patient on the CM role and verbal consent given by patient to complete assessment. CM verified patient's address, phone number, and emergency contact phone numbers. Patient lives at her brother's house. She reports she is able to care for herself. At discharge patient plans to return to her brother's house and feels this is a safe discharge. CM discussed availability of home health, rehab services, and medical equipment. Patient denied known discharge needs at this time. Transportation provider at discharge will be her ex . CM will continue to follow and will assist as needed with dc plans/needs. Sharon Stout RN, [facility] DCPIA - Discharge Planning Initial Assessment Updated by [email or web address]: Sharon Stout on 05/05/19 6:02 pm * Is the patient Alert and Oriented? Yes * How many steps to enter\exit or inside your home? * PCP Dr. Hameed * Pharmacy [facility] [address] by [address]. * Preadmission Environment Home with Family * ADLs Independent * Equipment BIPAP Cane Oxygen Rolling Walker * Other Equipment O2 with portability. [facility] is DME provider. * List name and contact numbers for known caregivers / representatives who currently or will assist patient after discharge: Kodi Chou - [phone] * Community resources currently utilized None * Additional services required to return to the preadmission environment? No * Can the patient safely return to the preadmission environment? Yes * Has this patient been hospitalized within the prior 30 days at any hospital? No Coverage Notice Reviewer: [id number] Joe Mercedes Notice Issued Date-Time: 05/23/2019 9:30 Notice Type: Patient Choice Letter Notice Delivered To: Patient Relationship to Patient: Beauty Therapist Name: Delivery Method: HAND - Hand Delivered Yael Days: Prior Verbal Notification: Recipient Understood Notice: Yes Recipient Signature: Yes Med Rec Note Co-signed by Attending: Coverage Notice Comment: [facility] Reviewer: [id number] Joe Mercedes Notice Issued Date-Time: 05/20/2019 15:00 Notice Type: Patient Choice Letter Notice Delivered To: Patient Relationship to Patient: Beauty Therapist Name: Delivery Method: HAND - Hand Delivered Yael Days: Prior Verbal Notification: Recipient Understood Notice: Yes Recipient Signature: Yes Med Rec Note Co-signed by Attending: Coverage Notice Comment: WAYNE HARMON Reviewer: [email or web address] Mercedes Notice Issued Date-Time: 05/17/2019 9:05 Notice Type: Patient Choice Letter Notice Delivered To: Patient Relationship to Patient: Beauty Therapist Name: Delivery Method: HAND - Hand Delivered Yael Days: Prior Verbal Notification: Recipient Understood Notice: Yes Recipient Signature: Yes Med Rec Note Co-signed by Attending: Coverage Notice Comment: [facility] Reviewer: ELYSSA Mercedes Notice Issued Date-Time: 05/23/2019 9:30 Notice Type: IM Discharge Notice Notice Delivered To: Patient Relationship to Patient: Beauty Therapist Name: Delivery Method: HAND - Hand Delivered Yael Days: Prior Verbal Notification: Recipient Understood Notice: Yes Recipient Signature: Yes Med Rec Note Co-signed by Attending: Coverage Notice Comment: Reviewer: ELYSSA Mercedes Notice Issued Date-Time: 05/20/2019 15:00 Notice Type: IM Discharge Notice Notice Delivered To: Patient Relationship to Patient: Beauty Therapist Name: Delivery Method: HAND - Hand Delivered Yael Days: Prior Verbal Notification: Recipient Understood Notice: Yes Recipient Signature: Yes Med Rec Note Co-signed by Attending: Coverage Notice Comment: Reviewer: ELYSSA Mercedes Notice Issued Date-Time: 05/17/2019 9:05 Notice Type: IM Discharge Notice Notice Delivered To: Patient Relationship to Patient: Beauty Therapist Name: Delivery Method: HAND - Hand Delivered Yael Days: Prior Verbal Notification: Recipient Understood Notice: Yes Recipient Signature: Yes Med Rec Note Co-signed by Attending: Coverage Notice Comment: Last DP export: 05/23/19 8:31 a Patient Name: BERNARD CHOU Page [id number] at 0944 All edits/amendments must be made on the electronic document DICTATION DATE: 05/23/19942 AUTOMATION CONTROL INTEGRATOR: MAIRA 05/23/19942 RPT#: [id number] DC DATE: STATUS: ADM IN [facility] [address] [place] [address] END OF REPORT
[2019-05-23 10:09] VITALS: BP 139/55
[2019-05-23 10:33] LABS: BASOPHILS 0.4 % (0-2); EOSINOPHILS 0.5 % (0-7); HEMATOCRIT 28.7 % (36.0-48.0); HEMOGLOBIN 8.7 g/dL (12-16); IMMATURE GRANULOCYTES 0.2 % (0-5); LYMPHOCYTES 19.9 % (15-50); MCH 27.3 pg (26.0-34.0); MCHC 30.3 g/dL (31.0-37.0); MONOCYTES 8.6 % (2-11); NEUTROPHILS 70.4 % (40-80); RBC 3.19 10x6/uL (4.00-5.40); RDW 17.6 % (11.5-14.5); WBC 5.7 10x3/uL (4.8-10.8)
[2019-05-23 10:37] LABS: ANION GAP 5.1 mmol/L (8-16); CALCIUM 8.9 mg/dL (8.5-10.1); CARBON DIOXIDE 38.4 mmol/L (21.0-32.0); CREATININE - SERUM 1.2 mg/dL (0.6-1.3); POTASSIUM - SERUM 4.5 mmol/L (3.5-5.1)
[2019-05-23 10:44] LABS: PLATELET COUNT 230 10x3/uL (130-400)
[2019-05-23 13:01] VITALS: BP 126/55
--- NOTE | 2019-05-23 16:05 | NUR ---
OT NOTE: PT SITTING UPRIGHT IN CHAIR. PT STATED HER NOSE HAD BEEN BLEEDING. NURSING AWARE. PT COMPLETED ADL MOB WITH RW AND REQUIRED CGA. PT COMPLETED SIT TO STAND WITH SPV. PT COMPLETED BUE AROM EXS IN CHAIR. [phone] THANK YOU, GEORGE HACKETT
[2019-05-23 16:55] VITALS: BP 123/54
--- NOTE | 2019-05-23 18:07 | NUR ---
WITHOUT CHANGES OR DISTRESS NOTED AT THIS TIME. DENIES NEEDS
[2019-05-23 20:30] VITALS: BP 117/58
[2019-05-24 00:30] VITALS: BP 124/60
--- NOTE | 2019-05-24 02:20 | NUR ---
I have reviewed this patient and I concur with the Shift Assessment completed by the Licensed Practical Nurse today this shift.
[2019-05-24 04:30] VITALS: BP 127/55
--- NOTE | 2019-05-24 07:01 | NUR ---
ASSESSMENT DONE. DENIES NEEDS
--- NOTE | 2019-05-24 08:58 | MORECARE ---
CASE MANAGEMENT DISCHARGE SUMMARY PATIENT: BERNARD CHOU UNIT: [id number] ADM DATE: 05/05/19 AGE: 64 : 55 SEX: F ROOM/BED: D.7134 AUTHOR: MELONIEDOC PHYSICIAN: REFERRING PHYSICIAN: ERIC HAMEED MD DATE OF SERVICE: 05/24/19 Discharge Plan Patient Name: BERNARD CHOU Facility: [facility]:[place] : 1955 Planned Disposition: Senior Care Facility Anticipated Discharge Date: 05/20/19 Discharge Date: Expected LOS: 15 Initial Reviewer: [email or web address] Initial Review Date: 05/05/2019 Generated: 05/24/19 9:58 am Comments DCP- Discharge Planning Updated by [email or web address]: Tyler Mercedes on 05/24/19 7:[address] Patient Name: BERNARD CHOU Encounter No: [id number] : 1955 Primary Insurance: [facility] MEDICARE SOLUTIONS Anticipated DC Date: 05-20-2019 Planned Disposition: Senior Care Facility External Planned Provider: [facility], MEDICARE REHAB BED Discharge Planning Comments: CM FAXED REFERRAL [facility] TO [facility]IA [facility] AT [phone]. CM SPOKE TO HUSSEIN OF [facility], THEY WILL DELIVER TRILOGY MACHINE TO REHAB PRIOR TO [facility]. CM WAITING INSURANCE DETERMINATION FOR REHAB AT [facility] AND [facility]. Mica Builder: Tyler Mercedes DCP- Discharge Planning Updated by [email or web address]: Tyler Mercedes on 05/23/19 8:[address] Patient Name: BERNARD CHOU Encounter No: [id number] : 1955 Primary Insurance: [facility] MEDICARE SOLUTIONS Anticipated DC Date: 05-20-2019 Planned Disposition: Senior Care Facility External Planned Provider: [facility] Discharge Planning Comments: CM NOTIFIED [facility] OF REFERRAL UPDATE FOR [facility] AT [phone], INFORMED THAT PT IS READY TO DISCHARGE TO REHAB WHEN ACCEPTED AND APPROVED BY INSURANCE. CM FAXED REFERRAL UDP[facility] TO [facility]IA [facility] AT [phone]. CM SPOKE TO [facility]SEIN OF [facility], NOTIFIED OF ORDER TO SEE IF PT QUALIFIES FOR TRILOGY MACHINE. CM FAXED REFERRAL TO [facility] AT [phone]. CM SPOKE TO PT IN ROOM, PROVIDED UPDATE ON PLACEMENT AND TRILOGY. PT SIGNED CONSENT FOR [facility] OR [facility], IMPORTANT MESSAGE FROM MEDICARE PROVIDED AND EXPLAINED. CM WAITING ADMISSION DETERMINATION FROM [facility]. [facility] PROCESSING ORDER FOR TRILOGY MACHINE DETERMINATION. Mica Builder: Tyler Mercedes DCP- Discharge Planning Updated by [email or web address]: Tyler Mercedes on 05/20/19 3:[address] Patient Name: BERNARD CHOU Admission Status: ER Accout number: [id number] Admission Date: 05-05-2019 : 1955 Admission Diagnosis: Attending: ERIC HAMEED Current LOS: 15 Anticipated DC Date: 05-20-2019 Planned Disposition: Senior Care Facility Primary Insurance: [facility] MEDICARE SOLUTIONS PLANNED EXTERNAL PROVIDER: [facility] Discharge Planning Comments: CM RECEIVED CALL FROM [facility]IO OF INPATIENT REHAB, INSURANCE DECLINED INPATIENT. CM SPOKE TO DR. HAMEED VIA PHONE IN OFFICE, HE IS IN AGREEMENT WITH [facility]. CM SPOKE TO PT WHO CALLED HER MARKETING WRITER WHO RECOMMENDED PT TAKE THE [facility]ILL[facility] REHAB. PT PROVIDED WITH LISTING OF PROVIDERS, CHOICE SIGNED FOR [facility]. IMPORTANT MESSAGE FROM MEDICARE PROVIDED AND EXPLAINED. CM NOTIFIED [facility] OF REFERRAL FOR [facility] AT [phone], INFORMED THAT PT IS READY TO DISCHARGE TO REHAB WHEN ACCEPTED AND APPROVED BY INSURANCE. CM FAXED REFERRAL TO [facility]IA [facility] AT [phone]. CM WAITING ADMISSION DETERMINATION FROM [facility]. Mica Builder: Tyler Mercedes DCP- Discharge Planning Updated by [email or web address]: Tyler Mercedes on 05/17/19 3:[address] Patient Name: BERNARD CHOU Encounter No: [id number] : 1955 Primary Insurance: [facility] MEDICARE SOLUTIONS Anticipated DC Date: 05-18-2019 Planned Disposition: Inpatient Rehab External Planned Provider: [facility] IN[facility]IENT REH[facility] DCP follow-up note: CM REVIEWED CHART, THERAPY NOTES RECOMMENDATION FOR INPATIENT REHAB PRESCREENING. CM MET WITH PT IN ROOM TO DISCUSS DISCHARGE PLANNING AND NEEDS. CM DISCUSSED AVAILABILITY OF HOME HEALTH, REHAB SERVICES AND MEDICAL EQUIPMENT. PT KNOWS SHE NEEDS REHAB WITH PLAN TO GO HOME AFTER REHAB. CM DISCUSSED REHAB OPTIONS, LOCATIONS AND PROVIDERS. PT WOULD LIKE FOR REHAB AT [facility] INPATIENT REHAB. CHOICE SIGNED. IMPORTANT MESSAGE FROM MEDICARE PROVIDED AND EXPLAINED. ORDER FOR INPATIENT REHAB PRESCREENING OBTAINED. PT PLANS TO DISCHARGE TO INPATIENT REHAB AT [place]. CM WAITING MEDICAL STABILITY WELL INPATIENT REHAB PRESCREENING RESULTS. Mica Builder: Tyler Mercedes DCP- Discharge Planning Updated by [email or web address]: Sharon Stout on 05/05/19 5:[address] DC PLAN: Return home with her . ANTICIPATED DC NEEDS: Denied known DC needs. Meals on wheels info given. CM met with patient to complete initial dc planning assessment. CM educated patient on the CM role and verbal consent given by patient to complete assessment. CM verified patient's address, phone number, and emergency contact phone numbers. Patient lives at her brother's house. She reports she is able to care for herself. At discharge patient plans to return to her brother's house and feels this is a safe discharge. CM discussed availability of home health, rehab services, and medical equipment. Patient denied known discharge needs at this time. Transportation provider at discharge will be her ex . CM will continue to follow and will assist as needed with dc plans/needs. Sharon Stout RN, [facility] DCPIA - Discharge Planning Initial Assessment Updated by [email or web address]: Sharon Stout on 05/05/19 6:02 pm * Is the patient Alert and Oriented? Yes * How many steps to enter\exit or inside your home? * PCP Dr. Hameed * Pharmacy [facility] [address] by [address]. * Preadmission Environment Home with Family * ADLs Independent * Equipment BIPAP Cane Oxygen Rolling Walker * Other Equipment O2 with portability. [facility] is DME provider. * List name and contact numbers for known caregivers / representatives who currently or will assist patient after discharge: Kodi hudson - [phone] * Community resources currently utilized None * Additional services required to return to the preadmission environment? No * Can the patient safely return to the preadmission environment? Yes * Has this patient been hospitalized within the prior 30 days at any hospital? No Coverage Notice Reviewer: ELYSSA Mercedes Notice Issued Date-Time: 05/17/2019 9:05 Notice Type: Patient Choice Letter Notice Delivered To: Patient Relationship to Patient: Blood Bank Coordinator Name: Delivery Method: HAND - Hand Delivered Yael Days: Prior Verbal Notification: Recipient Understood Notice: Yes Recipient Signature: Yes Med Rec Note Co-signed by Attending: Coverage Notice Comment: [facility] INPT REHAB Reviewer: ELYSSA Mercedes Notice Issued Date-Time: 05/17/2019 9:05 Notice Type: IM Discharge Notice Notice Delivered To: Patient Relationship to Patient: Blood Bank Coordinator Name: Delivery Method: HAND - Hand Delivered Yael Days: Prior Verbal Notification: Recipient Understood Notice: Yes Recipient Signature: Yes Med Rec Note Co-signed by Attending: Coverage Notice Comment: Reviewer: ELYSSA Mercedes Notice Issued Date-Time: 05/20/2019 15:00 Notice Type: IM Discharge Notice Notice Delivered To: Patient Relationship to Patient: Blood Bank Coordinator Name: Delivery Method: HAND - Hand Delivered Yael Days: Prior Verbal Notification: Recipient Understood Notice: Yes Recipient Signature: Yes Med Rec Note Co-signed by Attending: Coverage Notice Comment: Reviewer: ELYSSA Mercedes Notice Issued Date-Time: 05/20/2019 15:00 Notice Type: Patient Choice Letter Notice Delivered To: Patient Relationship to Patient: Blood Bank Coordinator Name: Delivery Method: HAND - Hand Delivered Yael Days: Prior Verbal Notification: Recipient Understood Notice: Yes Recipient Signature: Yes Med Rec Note Co-signed by Attending: Coverage Notice Comment: WAYNE HARMON Reviewer: ELYSSA Mercedes Notice Issued Date-Time: 05/23/2019 9:30 Notice Type: Patient Choice Letter Notice Delivered To: Patient Relationship to Patient: Blood Bank Coordinator Name: Delivery Method: HAND - Hand Delivered Yael Days: Prior Verbal Notification: Recipient Understood Notice: Yes Recipient Signature: Yes Med Rec Note Co-signed by Attending: Coverage Notice Comment: [facility] Reviewer: ELYSSA Mercedes Notice Issued Date-Time: 05/23/2019 9:30 Notice Type: IM Discharge Notice Notice Delivered To: Patient Relationship to Patient: Blood Bank Coordinator Name: Delivery Method: HAND - Hand Delivered Yael Days: Prior Verbal Notification: Recipient Understood Notice: Yes Recipient Signature: Yes Med Rec Note Co-signed by Attending: Coverage Notice Comment: Last DP export: 05/23/19 8:43 a Patient Name: BERNARD CHOU Page [phone] at 0858 All edits/amendments must be made on the electronic document DICTATION DATE: 05/24/19857 LINK CUTTER: MAIRA 05/24/19857 RPT#: [id number] DC DATE: STATUS: ADM IN [facility] [address] [place] [address] END OF REPORT
--- NOTE | 2019-05-24 09:21 | NUR ---
I have reviewed this patient and I concur with the Shift Assessment completed by the Licensed Practical Nurse today this shift.
[2019-05-24 09:58] VITALS: BP 127/66
[2019-05-24 14:40] VITALS: BP 111/50
--- NOTE | 2019-05-24 15:30 | NUR ---
Nutrition Follow-up: Eating well. Diet: Diabetic PO intake: 100% Wt: 275# (05/22) Last BM: 05/22 per chart Labs reviewed Meds noted: Lasix, KDur, Humulin, Lantus -Continue current diet as tolerated. -Monitor wt; noted daily wts ordered. -RD following.
--- NOTE | 2019-05-24 16:56 | NUR ---
OT NOTE: PT COMPLETED ADL MOB TO TOILET WITH SBA. PT COMPLETED SUPINE TO SIT WITH SBA. PT COMPLETED BUE AROM EXS . [phone] THANK YOU, GEORGE HACKETT
[2019-05-24 17:32] VITALS: BP 112/45
--- NOTE | 2019-05-24 18:37 | NUR ---
WITHOUT CHANGES OR DISTRESS NOTED AT THIS TIME
[2019-05-24 20:45] VITALS: BP 122/53
--- NOTE | 2019-05-25 00:25 | NUR ---
RESTING WITH EYES CLOSED, RESPERATIONS EVEN, NO S/S DISTRESS NOTED. BIPAP IN USE.
[2019-05-25 01:05] VITALS: BP 121/50
[2019-05-25 04:45] VITALS: BP 122/61
--- NOTE | 2019-05-25 07:35 | NUR ---
ASSESSMENT DONE. DENIES NEEDS
--- NOTE | 2019-05-25 07:44 | MORECARE ---
CASE MANAGEMENT DISCHARGE SUMMARY PATIENT: BERNARD CHOU UNIT: [id number] ADM DATE: 05/05/19 AGE: 64 : 55 SEX: F ROOM/BED: D.9654 AUTHOR: MELONIEDOC PHYSICIAN: REFERRING PHYSICIAN: ERIC HAMEED MD DATE OF SERVICE: 05/25/19 Discharge Plan Patient Name: BERNARD CHOU Facility: [facility]:[place] : 1955 Planned Disposition: [facility] Facility Anticipated Discharge Date: 05/25/19 Discharge Date: Expected LOS: 20 Initial Reviewer: [id number] Initial Review Date: 05/05/2019 Generated: 05/25/19 8:44 am Comments DCP- Discharge Planning Updated by [email or web address]: Tyler Mercedes on 05/24/19 7:[address] Patient Name: BERNARD CHOU Encounter No: [id number] : 1955 Primary Insurance: [facility] MEDICARE SOLUTIONS Anticipated DC Date: 05-20-2019 Planned Disposition: [facility] Facility External Planned Provider: [facility], MEDICARE REHAB BED Discharge Planning Comments: CM FAXED REFERRAL [facility] [employer] AT [phone]. CM SPOKE TO HUSSEIN OF [facility] [place] [facility]IENT AT [facility], THEY WILL DELIVER TRILOGY MACHINE TO REHAB PRIOR TO [facility]. CM WAITING INSURANCE DETERMINATION FOR REHAB AT [facility] AND [facility]. Golf Cart Attendant: Tyler Mercedes DCP- Discharge Planning Updated by [id number]: Tyler Mercedes on 05/23/19 8:[address] Patient Name: BERNARD CHOU Encounter No: [id number] : 1955 Primary Insurance: [facility] MEDICARE SOLUTIONS Anticipated DC Date: 05-20-2019 Planned Disposition: [facility] Facility External Planned Provider[facility] Discharge Planning Comments: CM NOTIFIED [facility] OF REFERRAL UPDATE FOR [facility] AT [phone], INFORMED THAT PT IS READY TO DISCHARGE TO REHAB WHEN ACCEPTED AND APPROVED BY INSURANCE. CM FAXED REFERRAL UDP[facility] TO [facility]IA [facility] AT [phone]. CM SPOKE TO HUSSEIN OF [facility], NOTIFIED OF ORDER TO SEE IF PT QUALIFIES FOR TRILOGY MACHINE. CM FAXED REFERRAL TO [facility] AT [phone]. CM SPOKE TO PT IN ROOM, PROVIDED UPDATE ON PLACEMENT AND TRILOGY. PT SIGNED CONSENT FOR [facility] OR [facility], IMPORTANT MESSAGE FROM MEDICARE PROVIDED AND EXPLAINED. CM WAITING ADMISSION DETERMINATION FROM [facility]ANCE DETERMINATION. [facility] PROCESSING ORDER FOR TRILOGY MACHINE DETERMINATION. Golf Cart Attendant: Tyler Mercedes DCP- Discharge Planning Updated by [id number]: Tyler Mercedes on 05/20/19 3:[address] Patient Name: BERNARD CHOU Admission Status: ER Accout number: [id number] Admission Date: 05-05-2019 : 1955 Admission Diagnosis: Attending: ERIC HAMEED Current LOS: 15 Anticipated DC Date: 05-20-2019 Planned Disposition: [facility] Facility Primary Insurance: [facility] MEDICARE SOLUTIONS PLANNED EXTERNAL PROVIDER: [facility] AND REHAB Discharge Planning Comments: CM RECEIVED CALL FROM [facility] OF INPATIENT REHAB, INSURANCE DECLINED INPATIENT. CM SPOKE TO DR. HAMEED VIA PHONE IN OFFICE, HE IS IN AGREEMENT WITH [facility]. CM SPOKE TO PT WHO CALLED HER DIRECTOR PAYER WHO RECOMMENDED PT TAKE THE [facility]. PT PROVIDED WITH LISTING OF PROVIDERS, CHOICE SIGNED FOR [facility]. IMPORTANT MESSAGE FROM MEDICARE PROVIDED AND EXPLAINED. CM NOTIFIED [facility] OF REFERRAL FOR [facility] AT [phone], INFORMED THAT PT IS READY TO DISCHARGE TO REHAB WHEN ACCEPTED AND APPROVED BY INSURANCE. CM FAXED REFERRAL TO [facility] AT [phone]. CM WAITING ADMISSION DETERMINATION [facility]ANCE DETERMINATION. Golf Cart Attendant: Tyler Mercedes DCP- Discharge Planning Updated by [email or web address]: Tyler Mercedes on 05/17/19 3:[address] Patient Name: BERNARD CHOU Encounter No: [id number] : 1955 Primary Insurance: [facility] MEDICARE SOLUTIONS Anticipated DC Date: 05-18-2019 Planned Disposition: Inpatient Rehab External Planned Provider: [facility] INPATIENT REHAB DCP follow-up note: CM REVIEWED CHART, THERAPY NOTES RECOMMENDATION FOR INPATIENT REHAB PRESCREENING. CM MET WITH PT IN ROOM TO DISCUSS DISCHARGE PLANNING AND NEEDS. CM DISCUSSED AVAILABILITY OF HOME HEALTH, REHAB SERVICES AND MEDICAL EQUIPMENT. PT KNOWS SHE NEEDS REHAB WITH PLAN TO GO HOME AFTER REHAB. CM DISCUSSED REHAB OPTIONS, LOCATIONS AND PROVIDERS. PT WOULD LIKE FOR REHAB AT [facility] INPATIENT REHAB. CHOICE SIGNED. IMPORTANT MESSAGE FROM MEDICARE PROVIDED AND EXPLAINED. ORDER FOR INPATIENT REHAB PRESCREENING OBTAINED. PT PLANS TO DISCHARGE TO INPATIENT REHAB AT [place]. CM WAITING MEDICAL STABILITY WELL INPATIENT REHAB PRESCREENING RESULTS. Golf Cart Attendant: Tyler Mercedes DCP- Discharge Planning Updated by [email or web address]: Sharon Stout on 05/05/19 5:[address] DC PLAN: Return home with her . ANTICIPATED DC NEEDS: Denied known DC needs. Meals on wheels info given. CM met with patient to complete initial dc planning assessment. CM educated patient on the CM role and verbal consent given by patient to complete assessment. CM verified patient's address, phone number, and emergency contact phone numbers. Patient lives at her brother's house. She reports she is able to care for herself. At discharge patient plans to return to her brother's house and feels this is a safe discharge. CM discussed availability of home health, rehab services, and medical equipment. Patient denied known discharge needs at this time. Transportation provider at discharge will be her ex . CM will continue to follow and will assist as needed with dc plans/needs. Sharon Stout RN, [facility] DCPIA - Discharge Planning Initial Assessment Updated by [id number]: Sharon Stout on 05/05/19 6:02 pm * Is the patient Alert and Oriented? Yes * How many steps to enter\exit or inside your home? * PCP Dr. Hameed * [facility] [address]. * Preadmission Environment Home with Family * ADLs Independent * Equipment BIPAP Cane Oxygen Rolling Walker * Other Equipment O2 with portability. [facility] Patient is DME provider. * List name and contact numbers for known caregivers / representatives who currently or will assist patient after discharge: Kodi hudson - [phone] * Community resources currently utilized None * Additional services required to return to the preadmission environment? No * Can the patient safely return to the preadmission environment? Yes * Has this patient been hospitalized within the prior 30 days at any hospital? No Coverage Notice Reviewer: ELYSSA Mercedes Notice Issued Date-Time: 05/17/2019 9:05 Notice Type: Patient Choice Letter Notice Delivered To: Patient Relationship to Patient: Service Architect Name: Delivery Method: HAND - Hand Delivered Yael Days: Prior Verbal Notification: Recipient Understood Notice: Yes Recipient Signature: Yes Med Rec Note Co-signed by Attending: Coverage Notice Comment: [facility] REH[facility] Reviewer: ELYSSA Mercedes Notice Issued Date-Time: 05/17/2019 9:05 Notice Type: IM Discharge Notice Notice Delivered To: Patient Relationship to Patient: Service Architect Name: Delivery Method: HAND - Hand Delivered Yael Days: Prior Verbal Notification: Recipient Understood Notice: Yes Recipient Signature: Yes Med Rec Note Co-signed by Attending: Coverage Notice Comment: Reviewer: ELYSSA Mercedes Notice Issued Date-Time: 05/20/2019 15:00 Notice Type: IM Discharge Notice Notice Delivered To: Patient Relationship to Patient: Service Architect Name: Delivery Method: HAND - Hand Delivered Yael Days: Prior Verbal Notification: Recipient Understood Notice: Yes Recipient Signature: Yes Med Rec Note Co-signed by Attending: Coverage Notice Comment: Reviewer: ELYSSA Mercedes Notice Issued Date-Time: 05/20/2019 15:00 Notice Type: Patient Choice Letter Notice Delivered To: Patient Relationship to Patient: Service Architect Name: Delivery Method: HAND - Hand Delivered Yael Days: Prior Verbal Notification: Recipient Understood Notice: Yes Recipient Signature: Yes Med Rec Note Co-signed by Attending: Coverage Notice Comment: [facility] Reviewer: ELYSSA Mercedes Notice Issued Date-Time: 05/23/2019 9:30 Notice Type: Patient Choice Letter Notice Delivered To: Patient Relationship to Patient: Service Architect Name: Delivery Method: HAND - Hand Delivered Yael Days: Prior Verbal Notification: Recipient Understood Notice: Yes Recipient Signature: Yes Med Rec Note Co-signed by Attending: Coverage Notice Comment: [facility] Reviewer: ELYSSA Mercedes Notice Issued Date-Time: 05/23/2019 9:30 Notice Type: IM Discharge Notice Notice Delivered To: Patient Relationship to Patient: Service Architect Name: Delivery Method: HAND - Hand Delivered Yael Days: Prior Verbal Notification: Recipient Understood Notice: Yes Recipient Signature: Yes Med Rec Note Co-signed by Attending: Coverage Notice Comment: Last DP export: 05/24/19 7:58 a Patient Name: BERNARD CHOU Page [id number] at 0744 All edits/amendments must be made on the electronic document DICTATION DATE: 05/25/19743 HEDIS REGISTERED NURSE RN: MAIRA 05/25/19743 RPT#: [id number] DC DATE: STATUS: ADM IN [facility] [address] [place] [address] END OF REPORT
--- NOTE | 2019-05-25 07:51 | MORECARE ---
CASE MANAGEMENT DISCHARGE SUMMARY PATIENT: BERNARD CHOU UNIT: [id number] ADM DATE: 05/05/19 AGE: 64 : 55 SEX: F ROOM/BED: D.5874 AUTHOR: MELONIEDOC PHYSICIAN: REFERRING PHYSICIAN: ERIC HAMEED MD DATE OF SERVICE: 05/25/19 Discharge Plan Patient Name: BERNARD CHOU Facility: [facility]:[place] : 1955 Planned Disposition: Retirement Facility Anticipated Discharge Date: 05/25/19 Discharge Date: Expected LOS: 20 Initial Reviewer: [id number] Initial Review Date: 05/05/2019 Generated: 05/25/19 8:51 am Comments DCP- Discharge Planning Updated by [id number]: Tyler Mercedes on 05/24/19 7:[address] Patient Name: BERNARD CHOU Encounter No: [id number] : 1955 Primary Insurance: [facility] MEDICARE SOLUTIONS Anticipated DC Date: 05-20-2019 Planned Disposition: Retirement Facility External Planned Provider: [facility], MEDICARE REHAB BED Discharge Planning Comments: CM FAXED REFERRAL UDPATE TO [facility] [place] AT [phone]. CM SPOKE TO HUSSEIN OF [place] [facility] [place] [facility]IENT AT [facility], THEY WILL DELIVER TRILOGY MACHINE TO REHAB PRIOR TO DISCHARGE FROM [facility]. CM WAITING INSURANCE DETERMINATION FOR REHAB AT [facility] AND [facility]. Early Childhood Education Coordinator: Tyler Mercedes DCP- Discharge Planning Updated by [id number]: Tyler Mercedes on 05/23/19 8:[address] Patient Name: BERNARD CHOU Encounter No: [id number] : 1955 Primary Insurance: [facility] MEDICARE SOLUTIONS Anticipated DC Date: 05-20-2019 Planned Disposition: Retirement Facility External Planned Provider: [facility] Discharge Planning Comments: CM NOTIFIED [facility] OF REFERRAL UPDATE FOR [facility] AT [phone], INFORMED THAT PT IS READY TO DISCHARGE TO REHAB WHEN ACCEPTED AND APPROVED BY INSURANCE. CM FAXED REFERRAL UDPATE TO [facility]IA [facility] AT [phone]. CM SPOKE TO HUSSEIN OF [facility], NOTIFIED OF ORDER TO SEE IF PT QUALIFIES FOR TRILOGY MACHINE. CM FAXED REFERRAL TO [facility] AT [phone]. CM SPOKE TO PT IN ROOM, PROVIDED UPDATE ON PLACEMENT AND TRILOGY. PT SIGNED CONSENT FOR [facility] OR [facility], IMPORTANT MESSAGE FROM MEDICARE PROVIDED AND EXPLAINED. CM WAITING ADMISSION DETERMINATION FROM [facility]ANCE DETERMINATION. [facility] PROCESSING ORDER FOR TRILOGY MACHINE DETERMINATION. Early Childhood Education Coordinator: Tyler Mercedes DCP- Discharge Planning Updated by [id number]: Tyler Mercedes on 05/20/19 3:[address] Patient Name: BERNARD CHOU Admission Status: ER Accout number: [id number] Admission Date: 05-05-2019 : 1955 Admission Diagnosis: Attending: ERIC HAMEED Current LOS: 15 Anticipated DC Date: 05-20-2019 Planned Disposition: Retirement Facility Primary Insurance: [facility] MEDICARE SOLUTIONS PLANNED EXTERNAL PROVIDER: [facility] AND [facility] Discharge Planning Comments: CM RECEIVED CALL FROM [facility] OF INPATIENT REHAB, INSURANCE DECLINED INPATIENT. CM SPOKE TO DR. HAMEED VIA PHONE IN OFFICE, HE IS IN AGREEMENT WITH [facility]. CM SPOKE TO PT WHO CALLED HER SCENIC DESIGNER WHO RECOMMENDED PT TAKE THE [facility]HAB. PT PROVIDED WITH LISTING OF PROVIDERS, CHOICE SIGNED FOR [facility]. IMPORTANT MESSAGE FROM MEDICARE PROVIDED AND EXPLAINED. CM NOTIFIED [facility] OF REFERRAL FOR [facility] AT [phone], INFORMED THAT PT IS READY TO DISCHARGE TO REHAB WHEN ACCEPTED AND APPROVED BY INSURANCE. CM FAXED REFERRAL TO [facility]IA [facility] AT [phone]. CM WAITING ADMISSION DETERMINATION FROM [facility] DETERMINATION. Early Childhood Education Coordinator: Tyler Mercedes DCP- Discharge Planning Updated by [id number]: Tyler Mercedes on 05/17/19 3:[address] Patient Name: BERNARD CHOU Encounter No: [id number] : 1955 Primary Insurance: [facility] MEDICARE SOLUTIONS Anticipated DC Date: 05-18-2019 Planned Disposition: Inpatient Rehab External Planned Provider: [facility] INPATIENT REHAB DCP follow-up note: CM REVIEWED CHART, THERAPY NOTES RECOMMENDATION FOR INPATIENT REHAB PRESCREENING. CM MET WITH PT IN ROOM TO DISCUSS DISCHARGE PLANNING AND NEEDS. CM DISCUSSED AVAILABILITY OF HOME HEALTH, REHAB SERVICES AND MEDICAL EQUIPMENT. PT KNOWS SHE NEEDS REHAB WITH PLAN TO GO HOME AFTER REHAB. CM DISCUSSED REHAB OPTIONS, LOCATIONS AND PROVIDERS. PT WOULD LIKE FOR REHAB AT [facility] INPATIENT REHAB. CHOICE SIGNED. IMPORTANT MESSAGE FROM MEDICARE PROVIDED AND EXPLAINED. ORDER FOR INPATIENT REHAB PRESCREENING OBTAINED. PT PLANS TO DISCHARGE TO INPATIENT REHAB AT [place]. CM WAITING MEDICAL STABILITY WELL INPATIENT REHAB PRESCREENING RESULTS. Early Childhood Education Coordinator: Tyler Mercedes DCP- Discharge Planning Updated by [email or web address]: Sharon Stout on 05/05/19 5:[address] DC PLAN: Return home with her . ANTICIPATED DC NEEDS: Denied known DC needs. Meals on wheels info given. CM met with patient to complete initial dc planning assessment. CM educated patient on the CM role and verbal consent given by patient to complete assessment. CM verified patient's address, phone number, and emergency contact phone numbers. Patient lives at her brother's house. She reports she is able to care for herself. At discharge patient plans to return to her brother's house and feels this is a safe discharge. CM discussed availability of home health, rehab services, and medical equipment. Patient denied known discharge needs at this time. Transportation provider at discharge will be her ex . CM will continue to follow and will assist as needed with dc plans/needs. Sharon Stout RN, [facility] DCPIA - Discharge Planning Initial Assessment Updated by [id number]: Sharon Stout on 05/05/19 6:02 pm * Is the patient Alert and Oriented? Yes * How many steps to enter\exit or inside your home? * PCP Dr. Hameed * [facility]acy [facility] [address]. * Preadmission Environment Home with Family * ADLs Independent * Equipment BIPAP Cane Oxygen Rolling Walker * Other Equipment O2 with portability. [facility] Patient is DME provider. * List name and contact numbers for known caregivers / representatives who currently or will assist patient after discharge: Kodi hudson - [phone] * Community resources currently utilized None * Additional services required to return to the preadmission environment? No * Can the patient safely return to the preadmission environment? Yes * Has this patient been hospitalized within the prior 30 days at any hospital? No External Providers [facility] [place] Next Contact Date: 05/20/2019 Service Request Date: Service Type: Resolution: Reviewer: Comments: Coverage Notice Reviewer: ELYSSA Mercedes Notice Issued Date-Time: 05/17/2019 9:05 Notice Type: Patient Choice Letter Notice Delivered To: Patient Relationship to Patient: Upholstery Technician Name: Delivery Method: HAND - Hand Delivered Yael Days: Prior Verbal Notification: Recipient Understood Notice: Yes Recipient Signature: Yes Med Rec Note Co-signed by Attending: Coverage Notice Comment: [facility] IN[facility] REHAB Reviewer: ELYSSA Mercedes Notice Issued Date-Time: 05/20/2019 15:00 Notice Type: Patient Choice Letter Notice Delivered To: Patient Relationship to Patient: Upholstery Technician Name: Delivery Method: HAND - Hand Delivered Yael Days: Prior Verbal Notification: Recipient Understood Notice: Yes Recipient Signature: Yes Med Rec Note Co-signed by Attending: Coverage Notice Comment: WAY[facility] HARMON Reviewer: ELYSSA Mercedes Notice Issued Date-Time: 05/23/2019 9:30 Notice Type: Patient Choice Letter Notice Delivered To: Patient Relationship to Patient: Upholstery Technician Name: Delivery Method: HAND - Hand Delivered Yael Days: Prior Verbal Notification: Recipient Understood Notice: Yes Recipient Signature: Yes Med Rec Note Co-signed by Attending: Coverage Notice Comment: [facility] Reviewer: ELYSSA Mercedes Notice Issued Date-Time: 05/17/2019 9:05 Notice Type: IM Discharge Notice Notice Delivered To: Patient Relationship to Patient: Upholstery Technician Name: Delivery Method: HAND - Hand Delivered Yael Days: Prior Verbal Notification: Recipient Understood Notice: Yes Recipient Signature: Yes Med Rec Note Co-signed by Attending: Coverage Notice Comment: Reviewer: ELYSSA Mercedes Notice Issued Date-Time: 05/20/2019 15:00 Notice Type: IM Discharge Notice Notice Delivered To: Patient Relationship to Patient: Upholstery Technician Name: Delivery Method: HAND - Hand Delivered Yael Days: Prior Verbal Notification: Recipient Understood Notice: Yes Recipient Signature: Yes Med Rec Note Co-signed by Attending: Coverage Notice Comment: Reviewer: ELYSSA Mercedes Notice Issued Date-Time: 05/23/2019 9:30 Notice Type: IM Discharge Notice Notice Delivered To: Patient Relationship to Patient: Upholstery Technician Name: Delivery Method: HAND - Hand Delivered Yael Days: Prior Verbal Notification: Recipient Understood Notice: Yes Recipient Signature: Yes Med Rec Note Co-signed by Attending: Coverage Notice Comment: Last DP export: 05/25/19 6:44 a Patient Name: BERNARD CHOU Page 13089 at 0751 All edits/amendments must be made on the electronic document DICTATION DATE: 05/25/19750 BISTRO SERVER: MAIRA 05/25/19750 RPT#: [id number] DC DATE: STATUS: ADM IN [facility] [address] [place] [address] END OF REPORT
--- NOTE | 2019-05-25 07:57 | MORECARE ---
CASE MANAGEMENT DISCHARGE SUMMARY PATIENT: BERNARD CHOU UNIT: [id number] ADM DATE: 05/05/19 AGE: 64 : 55 SEX: F ROOM/BED: D.7170 AUTHOR: MELONIEDOC PHYSICIAN: REFERRING PHYSICIAN: ERIC HAMEED MD DATE OF SERVICE: 05/25/19 Discharge Plan Patient Name: BERNARD CHOU Facility: [facility]:[place] : 1955 Planned Disposition: Assisted Facility Anticipated Discharge Date: 05/25/19 Discharge Date: Expected LOS: 20 Initial Reviewer: [id number] Initial Review Date: 05/05/2019 Generated: 05/25/19 8:57 am Comments DCP- Discharge Planning Updated by [email or web address]: Tyler Mercedes on 05/25/19 6:[address] Patient Name: BERNARD CHOU Encounter No: [id number] : 1955 Primary Insurance: [facility] MEDICARE SOLUTIONS Anticipated DC Date: 05-25-2019 Planned Disposition: Assisted Facility External Planned Provider: [facility], MEDICARE REHAB BED Discharge Planning Comments: CM SPOKE TO ERIK FAGAN OF [facility], SHE ASSESSED PT 05-24-19 IN HOSPITAL ROOM. CM FAXED REFERRAL UDPATE TO [facility] VIA ERIK AT [phone]. CM WAITING INSURANCE DETERMINATION FOR REHAB AT [facility]. Senior Process Analyst: Tyler Mercedes DCP- Discharge Planning Updated by [email or web address]: Tyler Mercedes on 05/24/19 7:[address] Patient Name: BERNARD CHOU Encounter No: [id number] : 1955 Primary Insurance: [facility] MEDICARE SOLUTIONS Anticipated DC Date: 05-20-2019 Planned Disposition: Assisted Facility External Planned Provider: [facility], MEDICARE REHAB BED Discharge Planning Comments: CM FAXED REFERRAL UDPATE TO [facility] VIA ERIK AT [phone]. CM SPOKE TO HUSSEIN [facility] PATIENT AT [facility], THEY WILL DELIVER TRILOGY MACHINE TO REHAB PRIOR TO DISCHARGE FROM [facility]. CM WAITING INSURANCE DETERMINATION FOR REHAB AT [facility]. Senior Process Analyst: Tyler Standish DCP- Discharge Planning Updated by [id number]: Tyler Mercedes on 05/23/19 8:[address] Patient Name: BERNARD CHOU Encounter No: [id number] : 1955 Primary Insurance: [facility] MEDICARE SOLUTIONS Anticipated DC Date: 05-20-2019 Planned Disposition: Assisted Facility External Planned Provider: [facility] Discharge Planning Comments: CM NOTIFIED ERIK OF REFERRAL UPDATE FOR [facility] AT [phone], INFORMED THAT PT IS READY TO DISCHARGE TO REHAB WHEN ACCEPTED AND APPROVED BY INSURANCE. CM FAXED REFERRAL UDPATE TO [facility] VIA ERIK AT [phone]. CM SPOKE TO [facility]SEIN OF [facility] AT [facility], NOTIFIED OF ORDER TO SEE IF PT QUALIFIES FOR TRILOGY MACHINE. CM FAXED REFERRAL TO [facility] AT [phone]. CM SPOKE TO PT IN ROOM, PROVIDED UPDATE ON PLACEMENT AND TRILOGY. PT SIGNED CONSENT FOR [facility] OR [facility], IMPORTANT MESSAGE FROM MEDICARE PROVIDED AND EXPLAINED. CM WAITING ADMISSION DETERMINATION FROM [facility] INSURANCE DETERMINATION. [facility] PROCESSING ORDER FOR TRILOGY MACHINE DETERMINATION. Senior Process Analyst: Tyler Mercedes DCP- Discharge Planning Updated by [id number]: Tyler Mercedes on 05/20/19 3:[address] Patient Name: BERNARD CHOU Admission Status: ER Accout number: [id number] Admission Date: 05-05-2019 : 1955 Admission Diagnosis: Attending: ERIC HAMEED Current LOS: 15 Anticipated DC Date: 05-20-2019 Planned Disposition: Assisted Facility Primary Insurance: [facility] MEDICARE SOLUTIONS PLANNED EXTERNAL PROVIDER: [facility] Discharge Planning Comments: CM RECEIVED CALL FROM MIO OF INPATIENT REHAB, INSURANCE DECLINED INPATIENT. CM SPOKE TO DR. HAMEED VIA PHONE IN OFFICE, HE IS IN AGREEMENT WITH [facility]. CM SPOKE TO PT WHO CALLED HER CRIMPING MACHINE OPERATOR FOR [employer] WHO RECOMMENDED PT TAKE THE [facility]AB. PT PROVIDED WITH LISTING OF PROVIDERS, CHOICE SIGNED FOR [facility]. IMPORTANT MESSAGE FROM MEDICARE PROVIDED AND EXPLAINED. CM NOTIFIED ERIK OF REFERRAL FOR [facility] AT [phone], INFORMED THAT PT IS READY TO DISCHARGE TO REHAB WHEN ACCEPTED AND APPROVED BY INSURANCE. CM FAXED REFERRAL TO [facility] VIA ERIK AT [phone]. CM WAITING ADMISSION DETERMINATION FROM [facility] INSURANCE DETERMINATION. Senior Process Analyst: Tyler Mercedes DCP- Discharge Planning Updated by [id number]: Tyler Mercedes on 05/17/19 3:[address] Patient Name: BERNARD CHOU Encounter No: [id number] : 1955 Primary Insurance: [facility] MEDICARE SOLUTIONS Anticipated DC Date: 05-18-2019 Planned Disposition: Inpatient Rehab External Planned Provider: [facility] INPATIENT REHAB DCP follow-up note: CM REVIEWED CHART, THERAPY NOTES RECOMMENDATION FOR INPATIENT REHAB PRESCREENING. CM MET WITH PT IN ROOM TO DISCUSS DISCHARGE PLANNING AND NEEDS. CM DISCUSSED AVAILABILITY OF HOME HEALTH, REHAB SERVICES AND MEDICAL EQUIPMENT. PT KNOWS SHE NEEDS REHAB WITH PLAN TO GO HOME AFTER REHAB. CM DISCUSSED REHAB OPTIONS, LOCATIONS AND PROVIDERS. PT WOULD LIKE FOR REHAB AT [facility] INPATIENT REHAB. CHOICE SIGNED. IMPORTANT MESSAGE FROM MEDICARE PROVIDED AND EXPLAINED. ORDER FOR INPATIENT REHAB PRESCREENING OBTAINED. PT PLANS TO DISCHARGE TO INPATIENT REHAB AT [facility]. CM WAITING MEDICAL STABILITY WELL INPATIENT REHAB PRESCREENING RESULTS. Senior Process Analyst: Tyler Mercedes DCP- Discharge Planning Updated by [id number]: Sharon Stout on 05/05/19 5:[address] DC PLAN: Return home with her . ANTICIPATED DC NEEDS: Denied known DC needs. Meals on wheels info given. CM met with patient to complete initial dc planning assessment. CM educated patient on the CM role and verbal consent given by patient to complete assessment. CM verified patient's address, phone number, and emergency contact phone numbers. Patient lives at her brother's house. She reports she is able to care for herself. At discharge patient plans to return to her brother's house and feels this is a safe discharge. CM discussed availability of home health, rehab services, and medical equipment. Patient denied known discharge needs at this time. Transportation provider at discharge will be her ex . CM will continue to follow and will assist as needed with dc plans/needs. Sharon Stout RN, [facility] DCPIA - Discharge Planning Initial Assessment Updated by [email or web address]: Sharon Stout on 05/05/19 6:02 pm * Is the patient Alert and Oriented? Yes * How many steps to enter\exit or inside your home? * PCP Dr. Hameed * Pharmacy [facility] [address] by Cristofer sherwood. * Preadmission Environment Home with Family * ADLs Independent * Equipment BIPAP Cane Oxygen Rolling Walker * Other Equipment O2 with portability. [facility] Patient is DME provider. * List name and contact numbers for known caregivers / representatives who currently or will assist patient after discharge: Kodi Chou [phone] * Community resources currently utilized None * Additional services required to return to the preadmission environment? No * Can the patient safely return to the preadmission environment? Yes * Has this patient been hospitalized within the prior 30 days at any hospital? No Coverage Notice Reviewer: ELYSSA Mercedes Notice Issued Date-Time: 05/17/2019 9:05 Notice Type: Patient Choice Letter Notice Delivered To: Patient Relationship to Patient: Workforce Development Assistant Name: Delivery Method: HAND - Hand Delivered Yael Days: Prior Verbal Notification: Recipient Understood Notice: Yes Recipient Signature: Yes Med Rec Note Co-signed by Attending: Coverage Notice Comment: [facility] Reviewer: ELYSSA Mercedes Notice Issued Date-Time: 05/20/2019 15:00 Notice Type: Patient Choice Letter Notice Delivered To: Patient Relationship to Patient: Workforce Development Assistant Name: Delivery Method: HAND - Hand Delivered Yael Days: Prior Verbal Notification: Recipient Understood Notice: Yes Recipient Signature: Yes Med Rec Note Co-signed by Attending: Coverage Notice Comment: WAYNE HARMON Reviewer: ELYSSA Mercedes Notice Issued Date-Time: 05/23/2019 9:30 Notice Type: Patient Choice Letter Notice Delivered To: Patient Relationship to Patient: Workforce Development Assistant Name: Delivery Method: HAND - Hand Delivered Yael Days: Prior Verbal Notification: Recipient Understood Notice: Yes Recipient Signature: Yes Med Rec Note Co-signed by Attending: Coverage Notice Comment: [facility] Reviewer: ELYSSA Mercedes Notice Issued Date-Time: 05/17/2019 9:05 Notice Type: IM Discharge Notice Notice Delivered To: Patient Relationship to Patient: Workforce Development Assistant Name: Delivery Method: HAND - Hand Delivered Yael Days: Prior Verbal Notification: Recipient Understood Notice: Yes Recipient Signature: Yes Med Rec Note Co-signed by Attending: Coverage Notice Comment: Reviewer: ELYSSA Mercedes Notice Issued Date-Time: 05/20/2019 15:00 Notice Type: IM Discharge Notice Notice Delivered To: Patient Relationship to Patient: Workforce Development Assistant Name: Delivery Method: HAND - Hand Delivered Yael Days: Prior Verbal Notification: Recipient Understood Notice: Yes Recipient Signature: Yes Med Rec Note Co-signed by Attending: Coverage Notice Comment: Reviewer: [id number] Joe Mercedes Notice Issued Date-Time: 05/23/2019 9:30 Notice Type: IM Discharge Notice Notice Delivered To: Patient Relationship to Patient: Workforce Development Assistant Name: Delivery Method: HAND - Hand Delivered Yael Days: Prior Verbal Notification: Recipient Understood Notice: Yes Recipient Signature: Yes Med Rec Note Co-signed by Attending: Coverage Notice Comment: Last DP export: 05/25/19 6:51 a Patient Name: BERNARD CHOU Page [id number] at 0757 All edits/amendments must be made on the electronic document DICTATION DATE: 05/25/19 075 ASSISTANT PROFESSOR OF SOCIOLOGY: MAIRA 05/25/19 0757 RPT#: [id number] DC DATE: STATUS: ADM IN [facility] [address] [place] [address] END OF REPORT
--- NOTE | 2019-05-25 08:49 | MORECARE ---
CASE MANAGEMENT DISCHARGE SUMMARY PATIENT: BERNARD CHOU UNIT: [id number] ADM DATE: 05/05/19 AGE: 64 : 55 SEX: F ROOM/BED: D.4452 AUTHOR: MELONIE,DOC PHYSICIAN: REFERRING PHYSICIAN: ERIC HAMEED MD DATE OF SERVICE: 05/25/19 Discharge Plan Patient Name: BERNARD CHOU Facility: [facility]:[place] : 1955 Planned Disposition: Assisted Facility Anticipated Discharge Date: 05/25/19 Discharge Date: Expected LOS: 20 Initial Reviewer: [id number] Initial Review Date: 05/05/2019 Generated: 05/25/19 9:49 am Comments DCP- Discharge Planning Updated by [id number]: Tyler Mercedes on 05/25/19 7:[address] Patient Name: BERNARD CHOU Encounter No: [id number] : 1955 Primary Insurance: [facility] MEDICARE SOLUTIONS Anticipated DC Date: 05-25-2019 Planned Disposition: Assisted Facility External Planned Provider: [facility], MEDICARE REHAB BED Discharge Planning Comments: CM SPOKE TO ERIK FAGAN OF [facility], SHE ASSESSED PT 05-24-19 IN HOSPITAL ROOM. CM FAXED REFERRAL UDPATE TO [facility] VIA [facility] AT [phone]. CM WAITING INSURANCE DETERMINATION FOR REHAB AT [facility]. Mangle Tender: Tyler Mercedes Appended by Tyler Mercedes on 05/25/2019 8:48 OPERATIONAL COMMUNICATION CHIEF: CM RECEIVED INPATIENT REHAB DENIAL NOTICE FROM PT'S INSURANCE COMPANY. CM PROVIDED PT WITH COPY OF NOTICE, PT SIGNED RECEIPT. PT STILL IN AGREEMENT WITH DISCHARGE TO REHAB AT [facility]. CM EXPLAINED WE ARE WAITING ON INSURANCE TO APPROVE THE SERVICES. IMPORTANT MESSAGE FROM MEDICARE PROVIDED AND EXPLAINED. CM WAITING INSURANCE DETERMINATION FOR REHAB AT [facility]. LYNETTE ESQUIVEL DCP- Discharge Planning Updated by [id number]: Tyler Mercedes on 05/24/19 7:[address] Patient Name: BERNARD CHOU Encounter No: [id number] : 1955 Primary Insurance: [facility] MEDICARE SOLUTIONS Anticipated DC Date: 05-20-2019 Planned Disposition: Assisted Facility External Planned Provider: [facility] BED Discharge Planning Comments: CM FAXED REFERRAL UDPATE TO [facility] VIA [facility] AT [phone]. CM SPOKE TO HUSSEIN OF [facility] PATIENT AT [facility], THEY WILL DELIVER TRILOGY MACHINE TO REHAB PRIOR TO DISCHARGE FROM [facility]. CM WAITING INSURANCE DETERMINATION FOR REHAB AT [facility]. Mangle Tender: Tyler Mercedes DCP- Discharge Planning Updated by [id number]: Tyler Mercedes on 05/23/19 8:[address] Patient Name: BERNARD CHOU Encounter No: [id number] : 1955 Primary Insurance: [facility] MEDICARE SOLUTIONS Anticipated DC Date: 05-20-2019 Planned Disposition: Assisted Facility External Planned Provider: [facility] Discharge Planning Comments: CM NOTIFIED ERIK OF REFERRAL UPDATE FOR [facility] AT [phone], INFORMED THAT PT IS READY TO DISCHARGE TO REHAB WHEN ACCEPTED AND APPROVED BY INSURANCE. CM FAXED REFERRAL UDPATE TO [facility] VIA ERIK AT [phone]. CM SPOKE TO HUSSEIN OF [facility] PATIENT AT [facility], NOTIFIED OF ORDER TO SEE IF PT QUALIFIES FOR TRILOGY MACHINE. CM FAXED REFERRAL TO [facility] AT [phone]. CM SPOKE TO PT IN ROOM, PROVIDED UPDATE ON PLACEMENT AND TRILOGY. PT SIGNED CONSENT FOR [facility] OR [facility], IMPORTANT MESSAGE FROM MEDICARE PROVIDED AND EXPLAINED. CM WAITING ADMISSION DETERMINATION FROM [facility] INSURANCE DETERMINATION. [facility] PATIENT PROCESSING ORDER FOR TRILOGY MACHINE DETERMINATION. Mangle Tender: Tyler Mercedes DCP- Discharge Planning Updated by [id number]: Tyler Mercedes on 05/20/19 3:[address] Patient Name: BERNARD CHOU Admission Status: ER Accout number: [id number] Admission Date: 05-05-2019 : 1955 Admission Diagnosis: Attending: ERIC HAMEED Current LOS: 15 Anticipated DC Date: 05-20-2019 Planned Disposition: Assisted Facility Primary Insurance: [facility] MEDICARE Options Away PLANNED EXTERNAL PROVIDER: [facility] Discharge Planning Comments: CM RECEIVED CALL FROM MIO OF INPATIENT REHAB, INSURANCE DECLINED INPATIENT. CM SPOKE TO DR. HAMEED VIA PHONE IN OFFICE, HE IS IN AGREEMENT WITH [facility]. CM SPOKE TO PT WHO CALLED HER CHEMICAL PROCESS OPERATOR WHO RECOMMENDED PT TAKE THE [facility]ILL[facility] REHAB. PT PROVIDED WITH LISTING OF PROVIDERS, CHOICE SIGNED FOR [facility] AND [facility]. IMPORTANT MESSAGE FROM MEDICARE PROVIDED AND EXPLAINED. CM NOTIFIED ERIK OF REFERRAL FOR [facility] AT [phone], INFORMED THAT PT IS READY TO DISCHARGE TO REHAB WHEN ACCEPTED AND APPROVED BY INSURANCE. CM FAXED REFERRAL TO [facility] VIA ERIK AT [phone]. CM WAITING ADMISSION DETERMINATION FROM [facility] AND REHAB WELL INSURANCE DETERMINATION. Mangle Tender: Tyler Mercedes DCP- Discharge Planning Updated by [id number]: Tyler Mercedes on 05/17/19 3:[address] Patient Name: BERNARD CHOU Encounter No: [id number] : 1955 Primary Insurance: [facility] MEDICARE SOLUTIONS Anticipated DC Date: 05-18-2019 Planned Disposition: Inpatient Rehab External Planned Provider: [facility] INPATIENT REHAB DCP follow-up note: CM REVIEWED CHART, THERAPY NOTES RECOMMENDATION FOR INPATIENT REHAB PRESCREENING. CM MET WITH PT IN ROOM TO DISCUSS DISCHARGE PLANNING AND NEEDS. CM DISCUSSED AVAILABILITY OF HOME HEALTH, REHAB SERVICES AND MEDICAL EQUIPMENT. PT KNOWS SHE NEEDS REHAB WITH PLAN TO GO HOME AFTER REHAB. CM DISCUSSED REHAB OPTIONS, LOCATIONS AND PROVIDERS. PT WOULD LIKE FOR REHAB AT [facility] INPATIENT REHAB. CHOICE SIGNED. IMPORTANT MESSAGE FROM MEDICARE PROVIDED AND EXPLAINED. ORDER FOR INPATIENT REHAB PRESCREENING OBTAINED. PT PLANS TO DISCHARGE TO INPATIENT REHAB AT [place]. CM WAITING MEDICAL STABILITY [facility] INPATIENT REHAB PRESCREENING RESULTS. Mangle Tender: Tyler Mercedes DCP- Discharge Planning Updated by [id number]: Sharon Stout on 05/05/19 5:[address] DC PLAN: Return home with her . ANTICIPATED DC NEEDS: Denied known DC needs. Meals on wheels info given. CM met with patient to complete initial dc planning assessment. CM educated patient on the CM role and verbal consent given by patient to complete assessment. CM verified patient's address, phone number, and emergency contact phone numbers. Patient lives at her brother's house. She reports she is able to care for herself. At discharge patient plans to return to her brother's house and feels this is a safe discharge. CM discussed availability of home health, rehab services, and medical equipment. Patient denied known discharge needs at this time. Transportation provider at discharge will be her ex . CM will continue to follow and will assist as needed with dc plans/needs. Sharon Stout RN, [facility] DCPIA - Discharge Planning Initial Assessment Updated by [id number]: Sharon Stout on 05/05/19 6:02 pm * Is the patient Alert and Oriented? Yes * How many steps to enter\exit or inside your home? * PCP Dr. Hameed * Pharmacy [facility] [address] by Cristofer sherwood. * Preadmission Environment Home with Family * ADLs Independent * Equipment BIPAP Cane Oxygen Rolling Walker * Other Equipment O2 with portability. [facility] Patient is DME provider. * List name and contact numbers for known caregivers / representatives who currently or will assist patient after discharge: Kodi hudson - [phone] * Community resources currently utilized None * Additional services required to return to the preadmission environment? No * Can the patient safely return to the preadmission environment? Yes * Has this patient been hospitalized within the prior 30 days at any hospital? No Coverage Notice Reviewer: [id number] Joe Mercedes Notice Issued Date-Time: 05/17/2019 9:05 Notice Type: Patient Choice Letter Notice Delivered To: Patient Relationship to Patient: Hvac Specialist Name: Delivery Method: HAND - Hand Delivered Yael Days: Prior Verbal Notification: Recipient Understood Notice: Yes Recipient Signature: Yes Med Rec Note Co-signed by Attending: Coverage Notice Comment: [facility] Reviewer: [id number] Joe Mercedes Notice Issued Date-Time: 05/20/2019 15:00 Notice Type: Patient Choice Letter Notice Delivered To: Patient Relationship to Patient: Hvac Specialist Name: Delivery Method: HAND - Hand Delivered Yael Days: Prior Verbal Notification: Recipient Understood Notice: Yes Recipient Signature: Yes Med Rec Note Co-signed by Attending: Coverage Notice Comment: WAYNE HARMON Reviewer: [id number] Joe Mercedes Notice Issued Date-Time: 05/23/2019 9:30 Notice Type: Patient Choice Letter Notice Delivered To: Patient Relationship to Patient: Hvac Specialist Name: Delivery Method: HAND - Hand Delivered Yael Days: Prior Verbal Notification: Recipient Understood Notice: Yes Recipient Signature: Yes Med Rec Note Co-signed by Attending: Coverage Notice Comment: [facility] Reviewer: ELYSSA Mercedes Notice Issued Date-Time: 05/17/2019 9:05 Notice Type: IM Discharge Notice Notice Delivered To: Patient Relationship to Patient: Hvac Specialist Name: Delivery Method: HAND - Hand Delivered Yael Days: Prior Verbal Notification: Recipient Understood Notice: Yes Recipient Signature: Yes Med Rec Note Co-signed by Attending: Coverage Notice Comment: Reviewer: ELYSSA Mercedes Notice Issued Date-Time: 05/20/2019 15:00 Notice Type: IM Discharge Notice Notice Delivered To: Patient Relationship to Patient: Hvac Specialist Name: Delivery Method: HAND - Hand Delivered Yael Days: Prior Verbal Notification: Recipient Understood Notice: Yes Recipient Signature: Yes Med Rec Note Co-signed by Attending: Coverage Notice Comment: Reviewer: ELYSSA Mercedes Notice Issued Date-Time: 05/23/2019 9:30 Notice Type: IM Discharge Notice Notice Delivered To: Patient Relationship to Patient: Hvac Specialist Name: Delivery Method: HAND - Hand Delivered Yael Days: Prior Verbal Notification: Recipient Understood Notice: Yes Recipient Signature: Yes Med Rec Note Co-signed by Attending: Coverage Notice Comment: Reviewer: ELYSSA Mercedes Notice Issued Date-Time: 05/25/2019 8:40 Notice Type: IM Discharge Notice Notice Delivered To: Patient Relationship to Patient: Hvac Specialist Name: Delivery Method: HAND - Hand Delivered Yael Days: Prior Verbal Notification: Recipient Understood Notice: Yes Recipient Signature: Yes Med Rec Note Co-signed by Attending: Coverage Notice Comment: Last DP export: 05/25/19 6:58 a Patient Name: BERNARD CHOU Page [id number] at 0849 All edits/amendments must be made on the electronic document DICTATION DATE: 05/25/1949 CIVIL PROJECT ENGINEER: MAIRA 05/25/19 0849 RPT#: [id number] DC DATE: STATUS: ADM IN [facility] [address] [place] [address] END OF REPORT
--- NOTE | 2019-05-25 09:24 | NUR ---
I have reviewed this patient and I concur with the Shift Assessment completed by the Licensed Practical Nurse today this shift.
--- NOTE | 2019-05-25 09:44 | MORECARE ---
CASE MANAGEMENT DISCHARGE SUMMARY PATIENT: BERNARD CHOU UNIT: [id number] ADM DATE: 05/05/19 AGE: 64 : 55 SEX: F ROOM/BED: D.4263 AUTHOR: MELONIE,DOC PHYSICIAN: REFERRING PHYSICIAN: ERIC HAMEED MD DATE OF SERVICE: 05/25/19 Discharge Plan Patient Name: BERNARD CHOU Facility: [facility]:[place] : 1955 Planned Disposition: Long-Term Facility Anticipated Discharge Date: 05/25/19 Discharge Date: Expected LOS: 20 Initial Reviewer: [id number] Initial Review Date: 05/05/2019 Generated: 05/25/19 10:44 am Comments DCP- Discharge Planning Updated by [id number]: Miguel Haskins on 05/25/19 8:[address] Patient Name: BERNARD CHOU Encounter No: [id number] : 1955 Primary Insurance: [facility] MEDICARE [employer] Anticipated DC Date: 05-25-2019 Planned Disposition: Long-Term Facility External Planned Provider: [facility], MEDICARE REHAB BED Discharge Planning Comments: CM SPOKE TO [facility], SHE ASSESSED PT 05-24-19 IN HOSPITAL ROOM. CM FAXED REFERRAL UDPATE TO [facility] VIA [facility] AT [phone]. CM WAITING INSURANCE DETERMINATION FOR REHAB AT [facility]. Gel Coater: Miguel Haskins Appended by Miguel Haskins on 05/25/2019 8:48 MECHANICAL ENGINEERING TEACHER: CM RECEIVED INPATIENT REHAB DENIAL NOTICE FROM PT'S INSURANCE COMPANY. CM PROVIDED PT WITH COPY OF NOTICE, PT SIGNED RECEIPT. PT STILL IN AGREEMENT WITH DISCHARGE TO REHAB AT [facility]. CM EXPLAINED WE ARE WAITING ON INSURANCE TO APPROVE THE SERVICES. IMPORTANT MESSAGE FROM MEDICARE PROVIDED AND EXPLAINED. CM WAITING INSURANCE DETERMINATION FOR REHAB AT [facility]. MIGUEL HASKINS,CASE MANAGEMENT Appended by Miguel Haskins on 05/25/2019 9:42 MECHANICAL ENGINEERING TEACHER: CM RECEIVED CALL FROM [facility] [place] WHO PROVIDED AUTHORIZATION FOR GROUP HOME AT [facility], [id number], SHE HAS NOTIFIED THE FACILITY. CM RECEIVED MESSAGE FROM [facility], THEY WILL ACCEPT PT TODAY AND WILL SHEET METAL SUPERVISOR AT ABOUT 1:30PM. PASSENGER CONDUCTOR NURSE NOTIFEID. CM NOTIFIED DR. RUBIO NURSE, , REQUSTING DISCHARGE FROM DOCTOR. FAX DISCHARGE INFORMATION TO [facility] AT [phone], NURSE REPORT TO BE CALLED TO [facility] AT [phone]. [facility] TO PROVIDE TRANSPORTATION AT 1330 HOURS. MIGUEL HASKINS, CASE MANAGEMENT DCP- Discharge Planning Updated by [id number]: Miguel Haskins on 05/24/19 7:[address] Patient Name: BERNARD CHOU Encounter No: [id number] : 1955 Primary Insurance: [facility] MEDICARE [employer]UT[employer] Anticipated DC Date: 05-20-2019 Planned Disposition: Long-Term Facility External Planned Provider: [facility], MEDICARE REHAB BED Discharge Planning Comments: CM FAXED REFERRAL UDPATE TO [facility] VIA [employer] AT [phone]. CM SPOKE TO HUSSEIN OF [facility] PATIENT AT [facility], THEY WILL DELIVER TRILOGY MACHINE TO REHAB PRIOR TO DISCHARGE FROM [facility]. CM WAITING INSURANCE DETERMINATION FOR REHAB AT [facility]. Gel Coater: Miguel Haskins DCP- Discharge Planning Updated by [id number]: Miguel Haskins on 05/23/19 8:[address] Patient Name: BERNARD CHOU Encounter No: [id number] : 1955 Primary Insurance: [facility] MEDICARE SOLUTIONS Anticipated DC Date: 05-20-2019 Planned Disposition: Long-Term Facility External Planned Provider: [facility] Discharge Planning Comments: CM NOTIFIED [facility] OF REFERRAL UPDATE FOR [facility] AT [phone], INFORMED THAT PT IS READY TO DISCHARGE TO REHAB WHEN ACCEPTED AND APPROVED BY INSURANCE. CM FAXED REFERRAL UDPATE TO [facility] VIA [facility] AT [phone]. CM SPOKE TO HUSSEIN OF [facility] PATIENT AT [facility], NOTIFIED OF ORDER TO SEE IF PT QUALIFIES FOR TRILOGY MACHINE. CM FAXED REFERRAL TO [facility] PATIENT AT [phone]. CM SPOKE TO PT IN ROOM, PROVIDED UPDATE ON PLACEMENT AND TRILOGY. PT SIGNED CONSENT FOR [facility]IENT OR [facility], IMPORTANT MESSAGE FROM MEDICARE PROVIDED AND EXPLAINED. CM WAITING ADMISSION DETERMINATION FROM [facility] INSURANCE DETERMINATION. [facility] PATIENT PROCESSING ORDER FOR TRILOGY MACHINE DETERMINATION. Gel Coater: Miguel Haskins DCP- Discharge Planning Updated by [id number]: Miguel Haskins on 05/20/19 3:[address] Patient Name: BERNARD CHOU Admission Status: ER Accout number: [id number] Admission Date: 05-05-2019 : 1955 Admission Diagnosis: Attending: ERIC HAMEED Current LOS: 15 Anticipated DC Date: 05-20-2019 Planned Disposition: Long-Term Facility Primary Insurance: [facility] MEDICARE SOLUTIONS PLANNED EXTERNAL PROVIDER: [facility] Discharge Planning Comments: CM RECEIVED CALL FROM [facility] OF INPATIENT REHAB, INSURANCE DECLINED INPATIENT. CM SPOKE TO DR. HAMEED VIA PHONE IN OFFICE, HE IS IN AGREEMENT WITH [facility]. CM SPOKE TO PT WHO CALLED HER RIG BUILDER HELPER WHO RECOMMENDED PT TAKE THE SKILLED REHAB. PT PROVIDED WITH LISTING OF PROVIDERS, CHOICE SIGNED FOR [facility] AND [facility]. IMPORTANT MESSAGE FROM MEDICARE PROVIDED AND EXPLAINED. CM NOTIFIED [facility] OF REFERRAL FOR [facility] AT [phone], INFORMED THAT PT IS READY TO DISCHARGE TO REHAB WHEN ACCEPTED AND APPROVED BY INSURANCE. CM FAXED REFERRAL TO [facility] VIA [facility] AT [phone]. CM WAITING ADMISSION DETERMINATION FROM [facility] WELL INSURANCE DETERMINATION. Gel Coater: Miguel Haskins DCP- Discharge Planning Updated by [id number]: Miguel Haskins on 05/17/19 3:[address] Patient Name: BERNARD CHOU Encounter No: [id number] : 1955 Primary Insurance: [facility] MEDICARE SOLUTIONS Anticipated DC Date: 05-18-2019 Planned Disposition: Inpatient Rehab External Planned Provider: [facility] DCP follow-up note: CM REVIEWED CHART, THERAPY NOTES RECOMMENDATION FOR INPATIENT REHAB PRESCREENING. CM MET WITH PT IN ROOM TO DISCUSS DISCHARGE PLANNING AND NEEDS. CM DISCUSSED AVAILABILITY OF HOME HEALTH, REHAB SERVICES AND MEDICAL EQUIPMENT. PT KNOWS SHE NEEDS REHAB WITH PLAN TO GO HOME AFTER REHAB. CM DISCUSSED REHAB OPTIONS, LOCATIONS AND PROVIDERS. PT WOULD LIKE FOR REHAB AT [facility]. CHOICE SIGNED. IMPORTANT MESSAGE FROM MEDICARE PROVIDED AND EXPLAINED. ORDER FOR INPATIENT REHAB PRESCREENING OBTAINED. PT PLANS TO DISCHARGE TO INPATIENT REHAB AT [facility]. CM WAITING MEDICAL STABILITY WELL INPATIENT REHAB PRESCREENING RESULTS. Gel Coater: Miguel Haskins DCP- Discharge Planning Updated by [id number]: Sharon Girish on 05/05/19 5:[address] DC PLAN: Return home with her . ANTICIPATED DC NEEDS: Denied known DC needs. Meals on wheels info given. CM met with patient to complete initial dc planning assessment. CM educated patient on the CM role and verbal consent given by patient to complete assessment. CM verified patient's address, phone number, and emergency contact phone numbers. Patient lives at her brother's house. She reports she is able to care for herself. At discharge patient plans to return to her brother's house and feels this is a safe discharge. CM discussed availability of home health, rehab services, and medical equipment. Patient denied known discharge needs at this time. Transportation provider at discharge will be her ex . CM will continue to follow and will assist as needed with dc plans/needs. Sharon Stout RN, [facility] DCPIA - Discharge Planning Initial Assessment Updated by [id number]: Sharon Stout on 05/05/19 6:02 pm * Is the patient Alert and Oriented? Yes * How many steps to enter\exit or inside your home? * PCP Dr. Hameed * Pharmacy [facility] on [address] by Cristofer sherwood. * Preadmission Environment Home with Family * ADLs Independent * Equipment BIPAP Cane Oxygen Rolling Walker * Other Equipment O2 with portability. [facility] Patient is DME provider. * List name and contact numbers for known caregivers / representatives who currently or will assist patient after discharge: Kodi Chou [phone] * Community resources currently utilized None * Additional services required to return to the preadmission environment? No * Can the patient safely return to the preadmission environment? Yes * Has this patient been hospitalized within the prior 30 days at any hospital? No Coverage Notice Reviewer: [id number] Joe Haskins Notice Issued Date-Time: 05/17/2019 9:05 Notice Type: Patient Choice Letter Notice Delivered To: Patient Relationship to Patient: Alliance Consultant Name: Delivery Method: HAND - Hand Delivered Yael Days: Prior Verbal Notification: Recipient Understood Notice: Yes Recipient Signature: Yes Med Rec Note Co-signed by Attending: Coverage Notice Comment: [facility] IN[facility] REHAB Reviewer: ELYSSA Haskins Notice Issued Date-Time: 05/20/2019 15:00 Notice Type: Patient Choice Letter Notice Delivered To: Patient Relationship to Patient: Alliance Consultant Name: Delivery Method: HAND - Hand Delivered Yael Days: Prior Verbal Notification: Recipient Understood Notice: Yes Recipient Signature: Yes Med Rec Note Co-signed by Attending: Coverage Notice Comment: WAYNE HARMON Reviewer: ELYSSA Haskins Notice Issued Date-Time: 05/23/2019 9:30 Notice Type: Patient Choice Letter Notice Delivered To: Patient Relationship to Patient: Alliance Consultant Name: Delivery Method: HAND - Hand Delivered Yael Days: Prior Verbal Notification: Recipient Understood Notice: Yes Recipient Signature: Yes Med Rec Note Co-signed by Attending: Coverage Notice Comment: [facility] OR [facility] Reviewer: ELYSSA Haskins Notice Issued Date-Time: 05/17/2019 9:05 Notice Type: IM Discharge Notice Notice Delivered To: Patient Relationship to Patient: Alliance Consultant Name: Delivery Method: HAND - Hand Delivered Yael Days: Prior Verbal Notification: Recipient Understood Notice: Yes Recipient Signature: Yes Med Rec Note Co-signed by Attending: Coverage Notice Comment: Reviewer: ELYSSA Haskins Notice Issued Date-Time: 05/20/2019 15:00 Notice Type: IM Discharge Notice Notice Delivered To: Patient Relationship to Patient: Alliance Consultant Name: Delivery Method: HAND - Hand Delivered Yael Days: Prior Verbal Notification: Recipient Understood Notice: Yes Recipient Signature: Yes Med Rec Note Co-signed by Attending: Coverage Notice Comment: Reviewer: ELYSSA Haskins Notice Issued Date-Time: 05/23/2019 9:30 Notice Type: IM Discharge Notice Notice Delivered To: Patient Relationship to Patient: Alliance Consultant Name: Delivery Method: HAND - Hand Delivered Yael Days: Prior Verbal Notification: Recipient Understood Notice: Yes Recipient Signature: Yes Med Rec Note Co-signed by Attending: Coverage Notice Comment: Reviewer: ELYSSA Haskins Notice Issued Date-Time: 05/25/2019 8:40 Notice Type: IM Discharge Notice Notice Delivered To: Patient Relationship to Patient: Alliance Consultant Name: Delivery Method: HAND - Hand Delivered Yael Days: Prior Verbal Notification: Recipient Understood Notice: Yes Recipient Signature: Yes Med Rec Note Co-signed by Attending: Coverage Notice Comment: Last DP export: 05/25/19 7:49 a Patient Name: BERNARD CHOU Page [id number] at 0944 All edits/amendments must be made on the electronic document DICTATION DATE: 05/25/19943 NET WPF DEVELOPER: MAIRA 05/25/19943 RPT#: [id number] DC DATE: STATUS: ADM IN [facility] [address] [place] [address] END OF REPORT
[2019-05-25 10:21] VITALS: BP 128/57
--- NOTE | 2019-05-25 11:43 | NUR ---
REPORT CALLED TO [facility]
--- NOTE | 2019-05-25 12:06 | MORECARE ---
CASE MANAGEMENT DISCHARGE SUMMARY PATIENT: BERNARD CHOU UNIT: [id number] ADM DATE: 05/05/19 AGE: 64 : 55 SEX: F ROOM/BED: D.4974 AUTHOR: MELONIEDOC PHYSICIAN: REFERRING PHYSICIAN: ERIC HAMEED MD DATE OF SERVICE: 05/25/19 Discharge Plan Patient Name: BERNARD CHOU Facility: [facility]:[place] : 1955 Planned Disposition: Usp Facility Anticipated Discharge Date: 05/25/19 Discharge Date: Expected LOS: 20 Initial Reviewer: [id number] Initial Review Date: 05/05/2019 Generated: 05/25/19 1:05 pm Comments DCP- Discharge Planning Updated by [id number]: Miguel Haskins on 05/25/19 11:[address] Patient Name: BERNARD CHOU Encounter No: [id number] : 1955 Primary Insurance: [facility] MEDICARE SOLUTIONS Anticipated DC Date: 05-25-2019 Planned Disposition: Usp Facility External Planned Provider: [facility], MEDICARE REHAB BED Discharge Planning Comments: CM FAXED DISCHARGE INFORMATION TO [facility] AT [phone], NURSE REPORT TO BE CALLED TO [facility] AT [phone]. [facility] TO PROVIDE TRANSPORTATION AT 1330 HOURS. LYNETTE ESQUIVEL DCP- Discharge Planning Updated by [id number]: Miguel Haskins on 05/25/19 8:[address] Patient Name: BERNARD CHOU Encounter No: [id number] : 1955 Primary Insurance: [facility] MEDICARE SOLUTIONS Anticipated DC Date: 05-25-2019 Planned Disposition: Usp Facility External Planned Provider: [facility], MEDICARE REHAB BED Discharge Planning Comments: CM SPOKE TO [facility] FAGAN OF [facility], SHE ASSESSED PT 05-24-19 IN HOSPITAL ROOM. CM FAXED REFERRAL UDPATE TO [facility] VIA [facility] AT [phone]. CM WAITING INSURANCE DETERMINATION FOR REHAB AT [facility]. Residential Service Technician: Miguel Haskins Appended by Miguel Haskins on 05/25/2019 8:48 OFFICE MACHINES SALES REPRESENTATIVE: CM RECEIVED INPATIENT REHAB DENIAL NOTICE FROM PT'S INSURANCE COMPANY. CM PROVIDED PT WITH COPY OF NOTICE, PT SIGNED RECEIPT. PT STILL IN AGREEMENT WITH DISCHARGE TO REHAB AT [facility]. CM EXPLAINED WE ARE WAITING ON INSURANCE TO APPROVE THE SERVICES. IMPORTANT MESSAGE FROM MEDICARE PROVIDED AND EXPLAINED. CM WAITING INSURANCE DETERMINATION FOR REHAB AT [facility]. MIGUEL HASKINS,CASE MANAGEMENT Appended by Miguel Haskins on 05/25/2019 9:42 OFFICE MACHINES SALES REPRESENTATIVE: CM RECEIVED CALL FROM [facility] WHO PROVIDED AUTHORIZATION FOR LONGTERM AT [facility], [id number], SHE HAS NOTIFIED THE FACILITY. CM RECEIVED MESSAGE FROM [facility] OF [facility], THEY WILL ACCEPT PT TODAY AND WILL STARS COORDINATOR AT ABOUT 1:30PM. AIRCRAFT RIGGING AND CONTROLS MECHANIC NURSE NOTIFEID. CM NOTIFIED DR. RUBIO NURSE, ERVIN., REQUSTING DISCHARGE FROM DOCTOR. FAX DISCHARGE INFORMATION TO [facility] AT [phone], NURSE REPORT TO BE CALLED TO [facility] AT [phone]. [facility] TO PROVIDE TRANSPORTATION AT 1330 HOURS. MIGUEL HASKINS, CASE MANAGEMENT DCP- Discharge Planning Updated by [id number]: Miguel Haskins on 05/24/19 7:[address] Patient Name: BERNARD CHOU Encounter No: [id number] : 1955 Primary Insurance: [facility] MEDICARE SOLUTIONS Anticipated DC Date: 05-20-2019 Planned Disposition: Usp Facility External Planned Provider: [facility], MEDICARE REHAB BED Discharge Planning Comments: CM FAXED REFERRAL UDPATE TO [facility]IA [facility] AT [phone]. CM SPOKE TO [facility]IN [facility] PATIENT AT [facility], THEY WILL DELIVER TRILOGY MACHINE TO REHAB PRIOR TO [facility]. CM WAITING INSURANCE DETERMINATION FOR REHAB AT [facility]. Residential Service Technician: Miguel Haskins DCP- Discharge Planning Updated by [id number]: Miguel Haskins on 05/23/19 8:[address] Patient Name: BERNARD CHOU Encounter No: [id number] : 1955 Primary Insurance: [facility] MEDICARE SOLUTIONS Anticipated DC Date: 05-20-2019 Planned Disposition: [facility]sp Facility External Planned Provider[facility] Discharge Planning Comments: CM NOTIFIED [facility] OF REFERRAL UPDATE FOR [facility] AT [phone], INFORMED THAT PT IS READY TO DISCHARGE TO REHAB WHEN ACCEPTED AND APPROVED BY INSURANCE. CM FAXED REFERRAL UDPATE TO [facility] VIA [facility] AT [phone]. CM SPOKE TO HUSSEIN OF [facility] PATIENT AT [facility], NOTIFIED OF ORDER TO SEE IF PT QUALIFIES FOR TRILOGY MACHINE. CM FAXED REFERRAL TO [facility] PATIENT AT [phone]. CM SPOKE TO PT IN ROOM, PROVIDED UPDATE ON PLACEMENT AND TRILOGY. PT SIGNED CONSENT FOR [facility] OR [facility], IMPORTANT MESSAGE FROM MEDICARE PROVIDED AND EXPLAINED. CM WAITING ADMISSION DETERMINATION FROM [facility] AND [facility] WELL INSURANCE DETERMINATION. [facility] PATIENT PROCESSING ORDER FOR TRILOGY MACHINE DETERMINATION. Residential Service Technician: Miguel Haskins DCP- Discharge Planning Updated by [id number]: Miguel Haskins on 05/20/19 3:[address] Patient Name: BERNARD CHOU Admission Status: ER Accout number: [id number] Admission Date: 05-05-2019 : 1955 Admission Diagnosis: Attending: ERIC HAMEED Current LOS: 15 Anticipated DC Date: 05-20-2019 Planned Disposition: Usp Facility Primary Insurance: [facility] MEDICARE SOLUTIONS PLANNED EXTERNAL PROVIDER: [facility] Discharge Planning Comments: CM RECEIVED CALL FROM [facility] OF INPATIENT REHAB, INSURANCE DECLINED INPATIENT. CM SPOKE TO DR. HAMEED VIA PHONE IN OFFICE, HE IS IN AGREEMENT WITH [facility]. CM SPOKE TO PT WHO CALLED HER PIECE DYEING MACHINE TENDER WHO RECOMMENDED PT TAKE THE SKILLED REHAB. PT PROVIDED WITH LISTING OF PROVIDERS, CHOICE SIGNED FOR [facility]HAB AND [facility] SECOND CHOICE. IMPORTANT MESSAGE FROM MEDICARE PROVIDED AND EXPLAINED. CM NOTIFIED [facility] OF REFERRAL FOR [facility] AT [phone], INFORMED THAT PT IS READY TO DISCHARGE TO REHAB WHEN ACCEPTED AND APPROVED BY INSURANCE. CM FAXED REFERRAL TO [facility]IA [facility] AT [phone]. CM WAITING ADMISSION DETERMINATION FROM [facility]ERMIN[facility]. Residential Service Technician: Miguel Haskins DCP- Discharge Planning Updated by [id number]: Miguel Haskins on 05/17/19 3:[address] Patient Name: BERNARD CHOU Encounter No: [id number] : 1955 Primary Insurance: [facility] MEDICARE SOLUTIONS Anticipated DC Date: 05-18-2019 Planned Disposition: Inpatient Rehab External Planned Provider: [facility] INPATIENT REHAB DCP follow-up note: CM REVIEWED CHART, THERAPY NOTES RECOMMENDATION FOR INPATIENT REHAB PRESCREENING. CM MET WITH PT IN ROOM TO DISCUSS DISCHARGE PLANNING AND NEEDS. CM DISCUSSED AVAILABILITY OF HOME HEALTH, REHAB SERVICES AND MEDICAL EQUIPMENT. PT KNOWS SHE NEEDS REHAB WITH PLAN TO GO HOME AFTER REHAB. CM DISCUSSED REHAB OPTIONS, LOCATIONS AND PROVIDERS. PT WOULD LIKE FOR REHAB AT [facility] INPATIENT REHAB. CHOICE SIGNED. IMPORTANT MESSAGE FROM MEDICARE PROVIDED AND EXPLAINED. ORDER FOR INPATIENT REHAB PRESCREENING OBTAINED. PT PLANS TO DISCHARGE TO INPATIENT REHAB AT [facility]. CM WAITING MEDICAL STABILITY WELL INPATIENT REHAB PRESCREENING RESULTS. Residential Service Technician: Miguel Haskins DCP- Discharge Planning Updated by [id number]: Sharon Stout on 05/05/19 5:[address] DC PLAN: Return home with her . ANTICIPATED DC NEEDS: Denied known DC needs. Meals on wheels info given. CM met with patient to complete initial dc planning assessment. CM educated patient on the CM role and verbal consent given by patient to complete assessment. CM verified patient's address, phone number, and emergency contact phone numbers. Patient lives at her brother's house. She reports she is able to care for herself. At discharge patient plans to return to her brother's house and feels this is a safe discharge. CM discussed availability of home health, rehab services, and medical equipment. Patient denied known discharge needs at this time. Transportation provider at discharge will be her ex . CM will continue to follow and will assist as needed with dc plans/needs. Sharon Stout RN, [facility] DCPIA - Discharge Planning Initial Assessment Updated by [id number]: Sharon Stout on 05/05/19 6:02 pm * Is the patient Alert and Oriented? Yes * How many steps to enter\exit or inside your home? * PCP Dr. Hameed * [facility]acy [facility] [address] by [address]er [address]. * Preadmission Environment Home with Family * ADLs Independent * Equipment BIPAP Cane Oxygen Rolling Walker * Other Equipment O2 with portability. [employer] Patient is DME provider. * List name and contact numbers for known caregivers / representatives who currently or will assist patient after discharge: Kodi Chou [facility] - [phone] * Community resources currently utilized None * Additional services required to return to the preadmission environment? No * Can the patient safely return to the preadmission environment? Yes * Has this patient been hospitalized within the prior 30 days at any hospital? No Coverage Notice Reviewer: ELYSSA Haskins Notice Issued Date-Time: 05/17/2019 9:05 Notice Type: Patient Choice Letter Notice Delivered To: Patient Relationship to Patient: Edge Glue Machine Tender Name: Delivery Method: HAND - Hand Delivered Yael Days: Prior Verbal Notification: Recipient Understood Notice: Yes Recipient Signature: Yes Med Rec Note Co-signed by Attending: Coverage Notice Comment: [facility] Reviewer: ELYSSA Haskins Notice Issued Date-Time: 05/20/2019 15:00 Notice Type: Patient Choice Letter Notice Delivered To: Patient Relationship to Patient: Edge Glue Machine Tender Name: Delivery Method: HAND - Hand Delivered Yael Days: Prior Verbal Notification: Recipient Understood Notice: Yes Recipient Signature: Yes Med Rec Note Co-signed by Attending: Coverage Notice Comment: [facility] Reviewer: ELYSSA Haskins Notice Issued Date-Time: 05/23/2019 9:30 Notice Type: Patient Choice Letter Notice Delivered To: Patient Relationship to Patient: Edge Glue Machine Tender Name: Delivery Method: HAND - Hand Delivered Yael Days: Prior Verbal Notification: Recipient Understood Notice: Yes Recipient Signature: Yes Med Rec Note Co-signed by Attending: Coverage Notice Comment: [facility] OR [facility] Reviewer: ELYSSA Haskins Notice Issued Date-Time: 05/17/2019 9:05 Notice Type: IM Discharge Notice Notice Delivered To: Patient Relationship to Patient: Edge Glue Machine Tender Name: Delivery Method: HAND - Hand Delivered Yael Days: Prior Verbal Notification: Recipient Understood Notice: Yes Recipient Signature: Yes Med Rec Note Co-signed by Attending: Coverage Notice Comment: Reviewer: ELYSSA Haskins Notice Issued Date-Time: 05/20/2019 15:00 Notice Type: IM Discharge Notice Notice Delivered To: Patient Relationship to Patient: Edge Glue Machine Tender Name: Delivery Method: HAND - Hand Delivered Yael Days: Prior Verbal Notification: Recipient Understood Notice: Yes Recipient Signature: Yes Med Rec Note Co-signed by Attending: Coverage Notice Comment: Reviewer: ELYSSA Haskins Notice Issued Date-Time: 05/23/2019 9:30 Notice Type: IM Discharge Notice Notice Delivered To: Patient Relationship to Patient: Edge Glue Machine Tender Name: Delivery Method: HAND - Hand Delivered Yael Days: Prior Verbal Notification: Recipient Understood Notice: Yes Recipient Signature: Yes Med Rec Note Co-signed by Attending: Coverage Notice Comment: Reviewer: [id number] Joe Haskins Notice Issued Date-Time: 05/25/2019 8:40 Notice Type: IM Discharge Notice Notice Delivered To: Patient Relationship to Patient: Edge Glue Machine Tender Name: Delivery Method: HAND - Hand Delivered Yael Days: Prior Verbal Notification: Recipient Understood Notice: Yes Recipient Signature: Yes Med Rec Note Co-signed by Attending: Coverage Notice Comment: Last DP export: 05/25/19 8:45 a Patient Name: BERNARD COHU Page 27000 at 1206 All edits/amendments must be made on the electronic document DICTATION DATE: 05/25/19 1205 CENTRAL SUPPLY TECH: MAIRA 05/25/19 1205 RPT#: [id number] DC DATE: STATUS: ADM IN [facility] [address] [place] [address] END OF REPORT
--- NOTE | 2019-05-25 13:46 | NUR ---
DC TO [facility] PER [facility]
--- NOTE | 2019-05-25 14:01 | MORECARE ---
CASE MANAGEMENT DISCHARGE SUMMARY PATIENT: BERNARD CHOU UNIT: [id number] ADM DATE: 05/05/19 AGE: 64 : 55 SEX: F ROOM/BED: D.1754 AUTHOR: MELONIE,DOC PHYSICIAN: REFERRING PHYSICIAN: ERIC HAMEED MD DATE OF SERVICE: 05/25/19 Discharge Plan Patient Name: BERNARD CHOU Facility: [facility]:[place] : 1955 Planned Disposition: Penitentiary Facility Anticipated Discharge Date: 05/25/19 Discharge Date: 05/25/2019 Expected LOS: 20 Initial Reviewer: [id number] Initial Review Date: 05/05/2019 Generated: 05/25/19 3:00 pm Comments DCP- Discharge Planning Updated by [id number]: Miguel Haskins on 05/25/19 11:[address] Patient Name: BERNARD CHOU Encounter No: [id number] : 1955 Primary Insurance: [facility] MEDICARE SOLUTIONS Anticipated DC Date: 05-25-2019 Planned Disposition: Penitentiary Facility External Planned Provider: [facility], MEDICARE REHAB BED Discharge Planning Comments: CM FAXED DISCHARGE INFORMATION TO [facility] AT [phone], NURSE REPORT TO BE CALLED TO [facility] AT [phone]. [facility] TO PROVIDE TRANSPORTATION AT 1330 HOURS. LYNETTE ESQUIVEL DCP- Discharge Planning Updated by [id number]: Miguel Haskins on 05/25/19 8:[address] Patient Name: BERNARD CHOU Encounter No: [id number] : 1955 Primary Insurance: [facility] MEDICARE SOLUTIONS Anticipated DC Date: 05-25-2019 Planned Disposition: Penitentiary Facility External Planned Provider: [facility], MEDICARE REHAB BED Discharge Planning Comments: CM SPOKE TO E[facility] FAGAN OF [facility], SHE ASSESSED PT 05-24-19 IN HOSPITAL ROOM. CM FAXED REFERRAL UDP[facility] TO [facility] VIA [facility] AT [phone]. CM WAITING INSURANCE DETERMINATION FOR REHAB AT [facility]. Preventive Maintenance Engineer: Miguel Haskins Appended by Miguel Haskins on 05/25/2019 8:48 SUPERVISOR REFINING: CM RECEIVED INPATIENT REHAB DENIAL NOTICE FROM PT'S INSURANCE COMPANY. CM PROVIDED PT WITH COPY OF NOTICE, PT SIGNED RECEIPT. PT STILL IN AGREEMENT WITH DISCHARGE TO REHAB AT [facility]. CM EXPLAINED WE ARE WAITING ON INSURANCE TO APPROVE THE SERVICES. IMPORTANT MESSAGE FROM MEDICARE PROVIDED AND EXPLAINED. CM WAITING INSURANCE DETERMINATION FOR REHAB AT [facility]. MIGUEL HASKINS,CASE MANAGEMENT Appended by Miguel Haskins on 05/25/2019 9:42 SUPERVISOR REFINING: CM RECEIVED CALL FROM [facility] WHO PROVIDED AUTHORIZATION FOR [facility] AT [facility], [id number], SHE HAS NOTIFIED THE FACILITY. CM RECEIVED MESSAGE FROM [facility] OF [facility], THEY WILL ACCEPT PT TODAY AND WILL SUPERVISOR WOOL SHEARING AT ABOUT 1:30PM. BUNG REMOVER NURSE NOTIFEID. CM NOTIFIED DR. RUBIO NURSE, ERVIN., REQUSTING DISCHARGE FROM DOCTOR. FAX DISCHARGE INFORMATION TO [facility] AT [phone], NURSE REPORT TO BE CALLED TO [facility] AT [phone]. [facility] TO PROVIDE TRANSPORTATION AT 1330 HOURS. MIGUEL HASKINS, CASE MANAGEMENT DCP- Discharge Planning Updated by [id number]: Miguel Haskins on 05/24/19 7:[address] Patient Name: BERNARD CHOU Encounter No: [id number] : 1955 Primary Insurance: [facility] MEDICARE SOLUTIONS Anticipated DC Date: 05-20-2019 Planned Disposition: Penitentiary Facility External Planned Provider: [facility], MEDICARE REHAB BED Discharge Planning Comments: CM FAXED REFERRAL UDP[facility] TO [facility]IA [facility] AT [phone]. CM SPOKE TO HUS[facility] PATIENT AT [facility], THEY WILL DELIVER TRILOGY MACHINE TO REHAB PRIOR TO DISCHARGE FROM [facility]. CM WAITING INSURANCE DETERMINATION FOR REHAB AT [facility]. Preventive Maintenance Engineer: Miguel Haskins DCP- Discharge Planning Updated by [id number]: Miguel Haskins on 05/23/19 8:[address] Patient Name: BERNARD CHOU Encounter No: [id number] : 1955 Primary Insurance: [facility] MEDICARE SOLUTIONS Anticipated DC Date: 05-20-2019 Planned Disposition: Penitentiary Facility External Planned Provider: [facility] Discharge Planning Comments: CM NOTIFIED [facility] OF REFERRAL UPDATE FOR [facility] AT [phone], INFORMED THAT PT IS READY TO DISCHARGE TO REHAB WHEN ACCEPTED AND APPROVED BY INSURANCE. CM FAXED REFERRAL UDPATE TO [facility] VIA [facility] AT [phone]. CM SPOKE TO HUSSEIN OF [facility] AT [facility], NOTIFIED OF ORDER TO SEE IF PT QUALIFIES FOR TRILOGY MACHINE. CM FAXED REFERRAL TO [facility] AT [phone]. CM SPOKE TO PT IN ROOM, PROVIDED UPDATE ON PLACEMENT AND TRILOGY. PT SIGNED CONSENT FOR [facility] OR [facility], IMPORTANT MESSAGE FROM MEDICARE PROVIDED AND EXPLAINED. CM WAITING ADMISSION DETERMINATION FROM [facility] INSURANCE DETERMINATION. [facility] PROCESSING ORDER FOR TRILOGY MACHINE DETERMINATION. Preventive Maintenance Engineer: Miguel Haskins DCP- Discharge Planning Updated by [id number]: Miguel Haskins on 05/20/19 3:[address] Patient Name: BERNARD CHOU Admission Status: ER Accout number: [id number] Admission Date: 05-05-2019 : 1955 Admission Diagnosis: Attending: ERIC HAMEED Current LOS: 15 Anticipated DC Date: 05-20-2019 Planned Disposition: Penitentiary Facility Primary Insurance: [facility] MEDICARE SOLUTIONS PLANNED EXTERNAL PROVIDER: [facility] Discharge Planning Comments: CM RECEIVED CALL FROM [facility] OF INPATIENT REHAB, INSURANCE DECLINED INPATIENT. CM SPOKE TO DR. HAMEED VIA PHONE IN OFFICE, HE IS IN AGREEMENT WITH [facility]. CM SPOKE TO PT WHO CALLED HER BICYCLE REPAIR TECHNICIAN WHO RECOMMENDED PT TAKE THE [facility]. PT PROVIDED WITH LISTING OF PROVIDERS, CHOICE SIGNED FOR [facility]. IMPORTANT MESSAGE FROM MEDICARE PROVIDED AND EXPLAINED. CM NOTIFIED [facility] OF REFERRAL FOR [facility] AT [phone], INFORMED THAT PT IS READY TO DISCHARGE TO REHAB WHEN ACCEPTED AND APPROVED BY INSURANCE. CM FAXED REFERRAL TO [facility]IA [facility] AT [phone]. CM WAITING ADMISSION DETERMINATION FROM [facility] AND [facility] INSURANCE DETERMINATION. Preventive Maintenance Engineer: Miguel Haskins DCP- Discharge Planning Updated by [id number]: Miguel Haskins on 05/17/19 3:[address] Patient Name: BERNARD CHOU Encounter No: [id number] : 1955 Primary Insurance: [facility] MEDICARE SOLUTIONS Anticipated DC Date: 05-18-2019 Planned Disposition: Inpatient Rehab External Planned Provider: [facility] INPATIENT REHAB DCP follow-up note: CM REVIEWED CHART, THERAPY NOTES RECOMMENDATION FOR INPATIENT REHAB PRESCREENING. CM MET WITH PT IN ROOM TO DISCUSS DISCHARGE PLANNING AND NEEDS. CM DISCUSSED AVAILABILITY OF HOME HEALTH, REHAB SERVICES AND MEDICAL EQUIPMENT. PT KNOWS SHE NEEDS REHAB WITH PLAN TO GO HOME AFTER REHAB. CM DISCUSSED REHAB OPTIONS, LOCATIONS AND PROVIDERS. PT WOULD LIKE FOR REHAB AT [facility] INPATIENT REHAB. CHOICE SIGNED. IMPORTANT MESSAGE FROM MEDICARE PROVIDED AND EXPLAINED. ORDER FOR INPATIENT REHAB PRESCREENING OBTAINED. PT PLANS TO DISCHARGE TO INPATIENT REHAB AT [facility]. CM WAITING MEDICAL ST[facility] WELL INPATIENT REHAB PRESCREENING RESULTS. Preventive Maintenance Engineer: Miguel Haskins DCP- Discharge Planning Updated by [id number]: Sharon Stout on 05/05/19 5:[address] DC PLAN: Return home with her . ANTICIPATED DC NEEDS: Denied known DC needs. Meals on wheels info given. CM met with patient to complete initial dc planning assessment. CM educated patient on the CM role and verbal consent given by patient to complete assessment. CM verified patient's address, phone number, and emergency contact phone numbers. Patient lives at her brother's house. She reports she is able to care for herself. At discharge patient plans to return to her brother's house and feels this is a safe discharge. CM discussed availability of home health, rehab services, and medical equipment. Patient denied known discharge needs at this time. Transportation provider at discharge will be her ex . CM will continue to follow and will assist as needed with dc plans/needs. Sharon Stout RN, [facility] DCPIA - Discharge Planning Initial Assessment Updated by [id number]: Sharon Stout on 05/05/19 6:02 pm * Is the patient Alert and Oriented? Yes * How many steps to enter\exit or inside your home? * PCP Dr. Hameed * Pharmacy [facility] by Cristofer sherwood. * Preadmission Environment Home with Family * ADLs Independent * Equipment BIPAP Cane Oxygen Rolling Walker * Other Equipment O2 with portability. 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 * List name and contact numbers for known caregivers / representatives who currently or will assist patient after discharge: [facility] - [phone] * Community resources currently utilized None * Additional services required to return to the preadmission environment? No * Can the patient safely return to the preadmission environment? Yes * Has this patient been hospitalized within the prior 30 days at any hospital? No Coverage Notice Reviewer: ELYSSA Haskins Notice Issued Date-Time: 05/17/2019 9:05 Notice Type: Patient Choice Letter Notice Delivered To: Patient Relationship to Patient: Computer Systems Analyst Name: Delivery Method: HAND - Hand Delivered Yael Days: Prior Verbal Notification: Recipient Understood Notice: Yes Recipient Signature: Yes Med Rec Note Co-signed by Attending: Coverage Notice Comment: [facility] Reviewer: ELYSSA Haskins Notice Issued Date-Time: 05/20/2019 15:00 Notice Type: Patient Choice Letter Notice Delivered To: Patient Relationship to Patient: Computer Systems Analyst Name: Delivery Method: HAND - Hand Delivered Yael Days: Prior Verbal Notification: Recipient Understood Notice: Yes Recipient Signature: Yes Med Rec Note Co-signed by Attending: Coverage Notice Comment: [place] Reviewer: ELYSSA Haskins Notice Issued Date-Time: 05/23/2019 9:30 Notice Type: Patient Choice Letter Notice Delivered To: Patient Relationship to Patient: Computer Systems Analyst Name: Delivery Method: HAND - Hand Delivered Yael Days: Prior Verbal Notification: Recipient Understood Notice: Yes Recipient Signature: Yes Med Rec Note Co-signed by Attending: Coverage Notice Comment: [facility] Reviewer: ELYSSA Haskins Notice Issued Date-Time: 05/17/2019 9:05 Notice Type: IM Discharge Notice Notice Delivered To: Patient Relationship to Patient: Computer Systems Analyst Name: Delivery Method: HAND - Hand Delivered Yael Days: Prior Verbal Notification: Recipient Understood Notice: Yes Recipient Signature: Yes Med Rec Note Co-signed by Attending: Coverage Notice Comment: Reviewer: ELYSSA Haskins Notice Issued Date-Time: 05/20/2019 15:00 Notice Type: IM Discharge Notice Notice Delivered To: Patient Relationship to Patient: Computer Systems Analyst Name: Delivery Method: HAND - Hand Delivered Yael Days: Prior Verbal Notification: Recipient Understood Notice: Yes Recipient Signature: Yes Med Rec Note Co-signed by Attending: Coverage Notice Comment: Reviewer: ELYSSA Haskins Notice Issued Date-Time: 05/23/2019 9:30 Notice Type: IM Discharge Notice Notice Delivered To: Patient Relationship to Patient: Computer Systems Analyst Name: Delivery Method: HAND - Hand Delivered Yael Days: Prior Verbal Notification: Recipient Understood Notice: Yes Recipient Signature: Yes Med Rec Note Co-signed by Attending: Coverage Notice Comment: Reviewer: [id number] Joe Haskins Notice Issued Date-Time: 05/25/2019 8:40 Notice Type: IM Discharge Notice Notice Delivered To: Patient Relationship to Patient: Computer Systems Analyst Name: Delivery Method: HAND - Hand Delivered Yael Days: Prior Verbal Notification: Recipient Understood Notice: Yes Recipient Signature: Yes Med Rec Note Co-signed by Attending: Coverage Notice Comment: Last DP export: 05/25/19 11:06 a Patient Name: BERNARD CHOU Page [id number] at 1401 All edits/amendments must be made on the electronic document DICTATION DATE: 05/25/191399 COMPUTER SECURITY SPECIALIST: MAIRA 05/25/19 1400 RPT#: [id number] DC DATE:05/25/19 STATUS: DIS IN [facility] [address] [place] [address] END OF REPORT
--- NOTE | 2019-05-25 14:36 | NUR ---
OT NOTE: PT PERFORMED VERY WELL TODAY. ABLE TO KAUSHAL B DIABETIC SHOES WITH SET UP FROM CHAIR LEVEL. AMB TO BATHROOM WITH WALKER AND CGA; SBA WITH TOILETING INCLUDING HYGIENE. SINK HYGIENE WHILE STANDING AT SINK WITH CGA. BED MOB WITH SPV; ABLE TO AMB GREATER THAN 150 FT WITH WALKER, O2, AND CGA WITH 2 STANDING REST BREAKS. O2 AT 4L..WHEN RETURNED TO ROOM, 02 SATS DROPPED TO 79%..REQUIRED APPROX 5 MIN TO RETURN TO 90%.. ALPHONSE CARRASQUILLO, OTR/L
== END 2019-05-25 13:46 | DRG 248 ==
LOC: D.ER 13:19 → D.M2 16:31 → D.CVICU 16:31 → D.M2 05-09 13:03 → D.CVICU 05-09 16:24 → D.M2 05-12 17:48
PROVIDERS: Family Medicine; Internal Medicine Interventional Cardiology; Internal Medicine Pulmonary Disease; ADMIT Family Medicine; ATTEND Family Medicine
PROC: 5A09357 Assistance with Respiratory Ventilation, Less than 24 Consecutive Hours, Continuous Positive Airway Pressure (ICD-10-PCS; 2019-05-09)
PROC: 02703DZ Dilation of Coronary Artery, One Artery with Intraluminal Device, Percutaneous Approach (ICD-10-PCS; principal; 2019-05-09 09:30)
PROC: B2111ZZ Fluoroscopy of Multiple Coronary Arteries using Low Osmolar Contrast (ICD-10-PCS; 2019-05-09 09:30)
PROC: B2151ZZ Fluoroscopy of Left Heart using Low Osmolar Contrast (ICD-10-PCS; 2019-05-09 09:30)
PROC: 4A023N7 Measurement of Cardiac Sampling and Pressure, Left Heart, Percutaneous Approach (ICD-10-PCS; 2019-05-09 09:30)
DX: I11.0 Hypertensive heart disease with heart failure (principal); J96.22 Acute and chronic respiratory failure with hypercapnia; J18.9 Pneumonia, unspecified organism; J96.21 Acute and chronic respiratory failure with hypoxia; Z68.42 Body mass index [BMI] 45.0-49.9, adult; N39.0 Urinary tract infection, site not specified; I50.23 Acute on chronic systolic (congestive) heart failure; I25.110 Atherosclerotic heart disease of native coronary artery with unstable angina pectoris; G47.33 Obstructive sleep apnea (adult) (pediatric); E11.21 Type 2 diabetes mellitus with diabetic nephropathy; E11.40 Type 2 diabetes mellitus with diabetic neuropathy, unspecified; I48.0 Paroxysmal atrial fibrillation; D64.9 Anemia, unspecified; E66.01 Morbid (severe) obesity due to excess calories; E03.9 Hypothyroidism, unspecified; E78.5 Hyperlipidemia, unspecified; R04.0 Epistaxis; E87.6 Hypokalemia; J44.9 Chronic obstructive pulmonary disease, unspecified; R53.81 Other malaise; B96.20 Unspecified Escherichia coli [E. coli] as the cause of diseases classified elsewhere

== ENCOUNTER → 2019-09-21 12:48 | Outpatient (CLI) | payer MEDICARE, MEDICAID ==
[~2019-09-21 12:48] MED LIST changes: +ALDACTONE25 MG PO; +CARDIZEM CD180 MG PO; +FUROSEMIDE20 MG PO
== END | disposition home or self-care (01) ==
LOC: D.RAD 09-19 14:00 → D.RT 09-19 14:00 → D.RAD 09-19 14:45 → D.RT 12:48
PROVIDERS: ATTEND Internal Medicine Pulmonary Disease
DX: J98.4 Other disorders of lung (principal); J96.11 Chronic respiratory failure with hypoxia

== ENCOUNTER → 2020-08-06 09:05 | Outpatient (CLI) | payer MEDICARE, MEDICAID | END | disposition home or self-care (01) | LOC: D.RT 08:30 | PROVIDERS: ATTEND Internal Medicine Pulmonary Disease | DX: J44.9 Chronic obstructive pulmonary disease, unspecified (principal); Z11.52 Encounter for screening for COVID-19 ==

== ENCOUNTER 2020-09-18 10:15 | Outpatient (CLI) | payer MEDICARE, MEDICAID | END 2020-09-18 23:59 | disposition home or self-care (01) | LOC: D.MAMMO 10:15 | PROVIDERS: ATTEND Family Medicine | DX: Z12.31 Encounter for screening mammogram for malignant neoplasm of breast (principal) ==